=== PATIENT | female | born 1945 | race Caucasian/White ===

== ENCOUNTER 2020-11-06 18:02 | Emergency (ER) | payer MEDICARE, SELFPAY ==
[2020-11-06] VITALS (24 sets, daily range): BP systolic 175–229; BP diastolic 57–113; PULSE 60–97; RESP 12–21; TEMP 37.3; O2SAT 94–98
[2020-11-06 18:37] LABS: Glucose Point of Care 345 (65-105)
--- NOTE | 2020-11-06 18:51 | ECG_ITS ---
Measurements Intervals [place] Rate: 83 P: 67 NM: 179 QRS: 7 QRSD: 100 T: 10 QT: 365 QTc: 429 Interpretive Statements SINUS RHYTHM FREQUENT ATRIAL PREMATURE COMPLEXES VOLTAGE CRITERIA FOR LVH BASELINE ARTIFACT- I, III, AVL, V4-V6 ABNORMAL ECG Electronically Signed On 11-07-2020 8:26:23 [employer]ANT by Nicola Nur D.O.
--- NOTE | 2020-11-06 18:51 | ED.GENADULT ---
HPI - General Adult General Chief complaint: Recheck/Abnormal Lab/Rx Stated complaint: sugar levels are high Time Seen by Provider: 11/06/20 18:40 Source: patient Mode of arrival: ambulatory Limitations: no limitations History of Present Illness HPI narrative: 74-year-old woman with a history of type 2 diabetes and hypertension brought to the emergency department by her granddaughter for high blood sugars. granddaughter says that it has been over 350 since this morning. Up until a few months ago the patient was taking metformin and glipizide. Patient complained that they were causing her side effects and so her primary care doctor changed her to evening Lantus 5 days ago. Patient has not been taking her evening medication because she is not comfortable taking it nor she comfortable checking her blood sugars. She denies cough or cold symptoms, fever, vomiting, diarrhea, dysuria, abdominal pain or other recent illnesses. Patient states that she takes clonidine 3 times a day but today she only took 1 dose. Onset (ago): day(s) Associated symptoms: denies other symptoms Related Data Allergies Allergy/AdvReac Type Severity Reaction Status Date / Time propoxyphene [From Darvon] Allergy Unknown Verified 11/06/20 18:40 glipizide AdvReac Dizziness Verified 11/06/20 18:40 metformin AdvReac Other Verified 11/06/20 18:40 Review of Systems Constitutional: Constitutional: Denies chills and Denies fever(s) Eyes: Eyes: Denies change in vision and Denies photophobia ENT: Denies dysphagia, Denies nasal congestion and Denies sore throat Cardiovascular: Cardiovascular: Denies chest pain and Denies radiating jaw, neck or arm pain Respiratory: Respiratory: Denies cough, Denies dyspnea and Denies wheezing Gastrointestinal: Gastrointestinal: Denies abdominal pain, Denies diarrhea, Denies nausea and Denies vomiting Genitourinary: Genitourinary: Denies nocturia and Denies dysuria Musculoskeletal: Musculoskeletal: Denies back pain, Denies arthralgias and Denies joint swelling Integumentary/Breasts: Skin/Breast: Denies pruritus, Denies erythema and Denies rash Neurologic: Denies vertigo, Denies dizziness and Denies syncope Hematologic/Lymphatic: Hematologic/Lymphatic: Denies easy bleeding and Denies easy bruising Allergic/Immunologic: Allergic/Immunologic: Denies lip swelling and Denies tongue swelling PMFSH Past Medical History Medical History Hypertension Hypothyroidism Type 2 diabetes mellitus Surgical History Surgical History H/O: hysterectomy History of bladder suspension procedure History of cataract surgery Hx of appendectomy Previous back surgery x2 S/P oophorectomy Social History Social History Smoking status: Never smoker Alcohol intake: never Substance use: never Living arrangements: alone Exam Const: General: no acute distress and alert Nutritional Appearance: obese Orientation/consciousness: patient oriented x3 Limitations: no limitations HENMT: Ears: external ears normal, TM's normal bilaterally and EAC's normal General nose exam: Normal nares present Face and sinus: normal facial exam Mouth: Yes moist mucous membranes Throat: posterior oropharynx normal Eyes: Conjunctivae: conjunctivae normal Pupils: Equal, round and reactive pupils present EOM: EOMs intact bilaterally Resp: Effort & Inspection: normal respiratory effort and not labored Auscultation: clear to auscultation bilaterally, no rales, no rhonchi and no wheezes Cardio: Rate: regular rate Rhythm: regular rhythm Heart sounds: no murmurs GI: GI Palp: Yes Soft to palpation, No Tenderness to palpation present (GI), No Guarding due to palpation present (GI) and No Rigid due to palpation Auscultation: normal bowel sounds Skin: General skin exam: normal color, no jaundice
[2020-11-06] MEDS: cloNIDine HCL 0.1 MG TABLET PO (19:12)
[2020-11-06 19:56] LABS: Basophils Absolute Auto 0.06 K/mm3 (0.00-0.10); Basophils Percent Auto 0.7 % (0.0-1.0); Eosinophils Absolute Auto 0.14 K/mm3 (0.02-0.50); Eosinophils Percent Auto 1.6 % (1.0-6.0); Hematocrit 42.2 % (35.0-42.0); Hemoglobin 14.3 g/dL (11.7-13.8); Immature Granulocyte Absolute 0.02 K/mm3 (0.00-0.00); Immature Granulocyte Percent A 0.2 % (0.0-0.0); Lymphocytes Absolute Auto 2.59 K/mm3 (1.10-4.50); Mean Corpuscular HGB Conc 33.9 g/dL (32.0-36.0); Mean Corpuscular Volume 85.6 fL (78.0-102.0); Mean Platelet Volume 10.6 fl (9.2-11.8); Monocytes Absolute Auto 0.87 K/mm3 (0.10-0.90); Monocytes Percent Auto 10.1 % (2.0-11.0); Neutrophils Absolute Auto 4.9 K/mm3 (1.7-7.2); Neutrophils Percent Auto 57.4 % (50.0-70.0); Platelet Count Result 325 K/mm3 (150-420); Red Blood Count 4.93 M/mm3 (4.20-5.40); Red Cell Distribution Width 11.7 % (11.6-14.4); White Blood Count 8.6 K/mm3 (4.8-10.8)
[2020-11-06 20:15] LABS: Alanine Aminotransferase 22 U/L (14-59); Albumin Level 3.7 g/dL (3.4-5.0); Alkaline Phosphatase 86 U/L (46-116); Anion Gap 10 mmol/L (8-16); Aspartate Amino Transferase 12 U/L (15-37); Bilirubin,Total 0.3 mg/dL (0.00-1.00); Blood Urea Nitrogen 17 mg/dL (7-18); Calcium 9.7 mg/dL (8.5-10.1); Carbon Dioxide 26 mmol/L (21-32); Chloride 96 mmol/L (98-108); Estimated CRCL calculation 41 ml/min; Estimated Glomerular Filt Rate 55; Glucose 373 mg/dL (70-99); Osmolality Calculated 290 mOsm/kg (285-295); Potassium 3.4 mmol/L (3.5-5.1); Sodium 132 mmol/L (136-145); Total Protein 8.3 g/dL (6.4-8.2)
[2020-11-06 20:37] LABS: Add Urine Microscopic? YES; Appearance Urine Clear (Clear); Bilirubin Urine Negative (Negative); Blood Urine 1+ (Negative); Color Urine Yellow (Yellow); Glucose Urine UA 3+ (Negative); Ketones Urine Trace (Negative); Leukocyte Esterase Ur Negative (Negative); Nitrate Urine Negative (Negative); Protein Urine Trace (Negative); Specific Grav Ur 1.015 (1.010-1.020); Urobilinogen Urine 0.2 mg/dL (0.2-1.0)
[2020-11-06 20:41] LABS: RBC Urine 21-50 /hpf (0-2)
[2020-11-06 20:42] LABS: Squamous Epithelial Cell Urine Occasional /hpf (Few)
[2020-11-06 21:00] LABS: Glucose Point of Care 312 (65-105)
[2020-11-06] MEDS: INSULIN GLARGINE (*BKC) 100 UNITS/ML 7 UNITS SUB-Q (21:21)
== END 2020-11-06 21:31 | disposition home or self-care (01) ==
PROVIDERS: Emergency Provider Emergency Medicine; PCP Family Medicine
DX: E11.649 Type 2 diabetes mellitus with hypoglycemia without coma (principal); I10 Essential (primary) hypertension; E03.9 Hypothyroidism, unspecified
CPT/HCPCS: 36415; 80053; 81001; 85025; 87086; 93005; 99283; A9270; J1815

== ENCOUNTER 2023-05-13 14:34 | Emergency (ER) | payer MEDICARE, OTHER, SELFPAY ==
[2023-05-13] VITALS (26 sets, daily range): BP systolic 123–197; BP diastolic 88–178; PULSE 99–152; RESP 12–21; TEMP 36.6–37.4; O2SAT 97–100
--- NOTE | ~2023-05-13 | XR_ITS ---
EXAMINATION: XR chest 1V portable Exam Date/Time: 05/13/2023 15:00 CDT HISTORY: AFib with RVR Comparison: None. RESULT: Lines, tubes, and devices: None. Lungs and pleura: Senescent change. Prominent pericardial fat pad. No focal consolidation, effusion, or pneumothorax. Cardiomediastinal silhouette: Normal heart size. Coronary artery calcification versus stenting. Aort ic arch calcification Other: No acute osseous or upper abdominal finding. Degenerative changes in the shoulders and spine. IMPRESSION: No acute cardiopulmonary process. Reviewed, dictated and finalized at location K.
--- NOTE | ~2023-05-13 | CT_ITS ---
EXAMINATION: CT brain wo con DATE: 05/13/2023 15:08 INDICATION: Slurred speech, onset 1:40 PM, with interval improvement. TECHNIQUE: Computed tomography (CT) of the head was performed without intravenous contrast. The mA wa s adjusted according to patient size. Iterative reconstruction technique was employed. The dose-lengt h product was 605.33 mGy-cm. COMPARISON: None. FINDINGS: No acute intracranial hemorrhage or extra-axial fluid collection. No hydrocephalus, mass, or herniation. Focal hypodensity and loss of mancilla-white differentiation in the right temporal lobe along the sylvian fissure. Large area of hypoattenuation and mancilla-white interface loss in the right medial occipital l obe. No vessel hyperdensities. Unremarkable dural venous sinus attenuation. No acute osseous abnormality. The aerated spaces are clear. Mild atrophy and chronic white matter change. Atherosclerotic intracranial calcification. Bilateral l ens replacements. IMPRESSION: Early hyperacute/acute infarcts involving the right temporal and medial occipital lobe. No intracrani al hemorrhage. Results reported telephonically to Dr. Cueva by Dr. Solorio at 3: 15 PM on 05/13/2023. Reviewed, dictated and finalized at location K. IMPRESSION: Early hyperacute/acute infarcts involving the right temporal and medial occipit al lobe. No intracranial hemorrhage. Results reported telephonically to Dr. Cueva by Dr. Solorio at 3: 15 PM on 05/13.
--- NOTE | 2023-05-13 14:48 | ED.GENADULT ---
HPI - General Adult General Chief complaint: Altered Mental Status Stated complaint: Possible stroke Time Seen by Provider: 05/13/23 14:48 Source: patient Mode of arrival: ambulatory Limitations: no limitations History of Present Illness HPI narrative: 77-year-old white female just finished her shower said on toilet all of sudden got weak and somewhat confused and started to have some slurred speech. She was brought by EMS her speech was clear. Denies any chest pain or shortness of breath difficulty breathing weakness numbness or problems with her speech currently. past medical history /Past surgical history:patient was discharged from [facility] in [place] last week after STEMI she had some stents placed . She had a bruise to her right forearm where they tried the place a catheter there. 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 she also has a history of diabetes hypertension hypothyroidism. Denies any history of cancer anemia. Denies any problems eating or drinking or voiding. Says she has been a little constipated she took some milk of magnesia this morning. Denies any rash or itching bleeding or bruising except for her right wrist she has a small bruise on her right wrist. Denies any swelling lumps or bumps cough shortness of breath sore throat or fever. She said she has had runny nose. EMS stated she was alert and oriented with a got their x4 she had no signs of stroke blood sugar was 169 blood pressure was 115/90 repeat 144/90 she was in AFib atrial fib at a rate of 130. Had occasional PVC social history she lives along Related Data Home Medications Medication Instructions Recorded Confirmed amlodipine 2.5 mg tablet 2.5 mg PO DAILY 05/13/23 05/13/23 aspirin 81 mg chewable tablet 81 mg PO DAILY 05/13/23 05/13/23 clonidine HCl 0.1 mg tablet 0.1 mg PO TID 05/13/23 05/13/23 docusate sodium 100 mg capsule 100 mg PO DAILY 05/13/23 05/13/23 insulin aspart U-100 100 unit/mL 14 unit subcut BID 05/13/23 05/13/23 subcutaneous solution (Novolog U-100 Insulin aspart) insulin glargine 100 unit/mL (3 10 unit subcut QPM 05/13/23 05/13/23 mL) subcutaneous pen (Lantus Solostar U-100 Insulin) levothyroxine 100 mcg tablet 100 mcg PO DAILY 05/13/23 05/13/23 (Synthroid) losartan 100 mg tablet 100 mg PO DAILY 05/13/23 05/13/23 metoprolol tartrate 50 mg tablet 50 mg PO BID 05/13/23 05/13/23 multivitamin-ferrous 1 tablet PO DAILY 05/13/23 05/13/23 fumarate-folic acid 18 mg-400 mcg tablet (Centrum Women) mvn-vit C 250 mg-B.coagulans 1 tablet PO DAILY 05/13/23 05/13/23 166.67 million cell-herb chewable tablet (Airborne Plus Probiotic) rosuvastatin 10 mg tablet (Crestor) 10 mg PO DAILY 05/13/23 05/13/23 sitagliptin phosphate 100 mg 100 mg PO DAILY 05/13/23 05/13/23 tablet (Januvia) ticagrelor 90 mg tablet 90 mg PO Q12H 05/13/23 05/13/23 Allergies Allergy/AdvReac Type Severity Reaction Status Date / Time atorvastatin [From Lipitor] Allergy Hives Verified 05/13/23 14:59 [id number]-[id number] Reductase Allergy Hives Verified 05/13/23 14:59 Inhibitor Streptomyces Albus Allergy Hives Uncoded 05/13/23 14:59 Review of Systems Review of Systems: All systems reviewed & are unremarkable except as noted in HPI and below Exam Narrative: ? White female no apparent distress.? Head normocephalic, atraumatic.? Eyes conjunctiva pink sclera nonicteric.? Extraocular movements are intact.? Ears externally normal.? Oropharynx is clear with moist mucous membranes without exudates.? Neck is supple nontender no lymphadenopathy.? Back is nontender.? Lungs are clear.? Heart is Irregularly irregular with the tachycardic heart rate without murmurs gallops or rubs.? Chest wall is nontender.? Abdomen is soft and nontender no hepatosplenomegaly or masses no CVA tenderness no abdominal bruits.? Extremities no cyanosis clubbing or edema.? S
--- NOTE | 2023-05-13 14:49 | ECG_ITS ---
Measurements Intervals [place] Rate: 128 P: NC: 0 QRS: 6 QRSD: 118 T: 226 QT: 322 QTc: 470 Interpretive Statements ATRIAL FIBRILLATION WITH RAPID VENTRICULAR RESPONSE INCOMPLETE LEFT BUNDLE BRANCH BLOCK LEFT VENTRICULAR HYPERTROPHY WITH ST-T CHANGE CONSIDER INFERIOR INFARCT, AGE INDETERMINATE ST-T WAVE ABNORMALITY IN LATERAL LEADS- CONSIDER ISCHEMIA ABNORMAL ECG NO PREVIOUS ECG AVAILABLE FOR COMPARISON Electronically Signed On 05-14-2023 8:41:18 CDT by Nicola Nur D.O.
[2023-05-13] MEDS: dilTIAZem HCl INJ 25 MG/5 ML VIAL 10 MG IV PUSH (15:18)
[2023-05-13 15:46] LABS: Mean Corpuscular HGB Conc 35.1 g/dL (32.0-36.0); Mean Corpuscular Hemoglobin 30.5 pg (27.0-31.0); Mean Corpuscular Volume 86.9 fL (78.0-102.0); Mean Platelet Volume 9.6 fl (9.2-11.8); Platelet Count Result 363 K/mm3 (150-420); Red Blood Count 4.26 M/mm3 (4.20-5.40); Red Cell Distribution Width 11.9 % (11.6-14.4)
[2023-05-13 15:58] LABS: INR 1.1; Partial Thromboplastin Time 25.7 SEC (23.90-30.70); Prothrombin Time 11.7 Seconds (9.50-12.10)
[2023-05-13 16:09] LABS: Alanine Aminotransferase 24 U/L (14-59); Albumin Level 3.6 g/dL (3.4-5.0); Alkaline Phosphatase 57 U/L (46-116); Anion Gap 14 mmol/L (8-16); Aspartate Amino Transferase 32 U/L (15-37); Bilirubin,Total 0.8 mg/dL (0.00-1.00); Blood Urea Nitrogen 16 mg/dL (7-18); Calcium 9.4 mg/dL (8.5-10.1); Carbon Dioxide 24 mmol/L (21-32); Chloride 96 mmol/L (98-108); Estimated CRCL calculation 38 ml/min; Estimated Glomerular Filt Rate 52; Glucose 186 mg/dL (70-99); NT Pro B Type Natriuretic Pept 4582 pg/mL (0-450); Osmolality Calculated 284 mOsm/kg (285-295); Potassium 3.6 mmol/L (3.5-5.1); Sodium 134 mmol/L (136-145); Thyroid Stimulating Hormone 0.78 uIU/mL (0.36-3.74); Total Protein 8.1 g/dL (6.4-8.2)
[2023-05-13] MEDS: dilTIAZem 100 MG/100 ML 100 MG/100 ML BAG IV CONT (16:30)
== END 2023-05-13 17:35 | disposition short-term general hospital (02) ==
LOC: CHSED 16:04
PROVIDERS: Emergency Provider Emergency Medicine; PCP Physician Assistant
DX: I63.89 Other cerebral infarction (principal); I48.20 Chronic atrial fibrillation, unspecified; R53.1 Weakness; R41.0 Disorientation, unspecified; E03.9 Hypothyroidism, unspecified; I25.2 Old myocardial infarction; E11.9 Type 2 diabetes mellitus without complications; I10 Essential (primary) hypertension; Z79.899 Other long term (current) drug therapy; Z79.4 Long term (current) use of insulin; Z79.82 Long term (current) use of aspirin
CPT/HCPCS: 36415; 70450; 71045; 80053; 83735; 83880; 84443; 84484; 85027; 85610; 85730; 93005; 96365; 96376; 99285

== ENCOUNTER 2023-05-22 15:07 | Inpatient (IN) | payer MEDICARE, OTHER, SELFPAY ==
[2023-05-22] VITALS (30 sets, daily range): BP systolic 116–181; BP diastolic 62–151; PULSE 77–109; RESP 13–20; TEMP 36.5–36.8; O2SAT 96–100; BMI 27.5
--- NOTE | ~2023-05-22 | XR_ITS ---
XR chest 1V portable DATE: 05/22/2023 15:49 INDICATION: Slurred speech, left-sided weakness TECHNIQUE: Portable supine AP view on 05/22/2023 at 1545 hours COMPARISON: None FINDINGS: Cardiomegaly. Aortic arch calcification. There is increased density overlying the left side of the cardiac silhouette which which may be due t o any combination of mitral annulus calcification, left lower lung infiltrate and/atelectasis, less l ikely hiatal hernia. PA and lateral chest radiographs or CT thorax would be helpful for more definiti ve evaluation. The lung watson otherwise appear clear. No pleural effusion or pneumothorax is noted. Degenerative spurring of the thoracic spine. IMPRESSION: Cardiomegaly, aortic atherosclerosis Increased retrocardiac density on the left which may be due to any combination of mitral annulus calc ification, infiltrate or atelectasis, hiatal hernia PA and lateral chest radiographs or CT thorax with the helpful for more definitive evaluation Reviewed, dictated and finalized at location L. IMPRESSION: Cardiomegaly, aortic atherosclerosis Increased retrocardiac density on the left which may be due to any combination of mitral annulus calcification, infiltrate or atelectasis, hiatal hernia PA and lateral chest radiographs or CT thorax with the helpful for more definit armando evaluation
--- NOTE | ~2023-05-22 | CT_ITS ---
EXAMINATION: CTA brain carotid DATE: 05/22/2023 15:37 INDICATION: stroke symptoms TECHNIQUE: Computed tomographic angiography (CTA) of the head was performed without and with 100 mL O mnipaque-350 intravenous contrast. CTA of the neck was performed with intravenous contrast. Automated exposure control and iterative reconstruction technique were employed. The dose-length product was 1 580.55 mGy-cm. Maximum intensity projection and volume rendered 3D-reconstructions were created by th sourav technologist on a separate workstation. COMPARISON: None. FINDINGS: CT BRAIN: Focal areas of hypodensity and loss of the mancilla-white interface within the right temporal and right m edial occipital lobes No acute intracranial hemorrhage, mass, or hydrocephalus. CTA HEAD: No large vessel occlusion, aneurysm, high flow vascular malformation, nidus or extravasation. 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 Short segment mild narrowing at the right M1/M2 junction with mild poststenotic dilation. Scattered mild and moderate calcified plaques in the bilate ral carotid and vertebral systems without significant stenosis. Focal hypoenhancement in the right te mporal and occipital lobes corresponding to the abnormalities in the noncontrast scan. Patent cerebra l veins. CTA NECK: Aortic arch and proximal great vessels: Mild-moderate atherosclerotic calcifications. Noncalcified pl aque in the mid and posterior arch. Right common carotid, carotid bifurcation, and internal carotid artery: Calcified and noncalcified pl aque at the bifurcation.There is 47% stenosis of the proximal right internal carotid artery relative to normal distal artery lumen diameter (NASCET criteria). Scattered focal calcified plaques in the re maining right carotid system, without significant stenosis. Left common carotid, carotid bifurcation, and internal carotid artery: Calcified and noncalcified daysi que at the bifurcation.There is 59% stenosis of the proximal left internal carotid artery relative to normal distal artery lumen diameter (NASCET criteria). Scattered focal calcified plaques in the bambi ining left carotid system, without significant stenosis. Vertebral arteries: No significant plaque or stenosis. Right vertebral artery is dominant. Moderate b ilateral vertebral artery origin calcific plaque causing mild stenosis. Mild additional scattered biju ateral vertebral artery focal calcified plaques without significant stenosis. Other findings: None. IMPRESSION: Focal areas of acute infarct involving the right temporal and right occipital lobes, possibly on an e mbolic basis given the distribution. No large vessel occlusion. 47% stenosis of the proximal right internal carotid artery. 59% stenosis of the proximal left interna l carotid artery. Results of the noncontrast head CT portion of this examination (relating to focal areas of right temp oral and right occipital acute and possibly embolic infarct), which was performed as part of the [facility] stroke protocol, reported telephonically to Dr. Holman by Dr. Solorio at 3:33 PM on 05/22/2023. Reviewed, dictated and finalized at location K. IMPRESSION: Focal areas of acute infarct involving the right temporal and right occipital l obes, possibly on an embolic basis given the distribution. No large vessel occlusion. 47% stenosis of the proximal right internal carotid artery. 59% stenosis of the proximal left internal carotid artery. Results of the noncontrast head CT portion of this examination (relating to foc al areas of right temporal and right occipital acute and possibly embolic infar ct), which was performed as part of the [facility] stroke protocol, reported telephon ically to Dr. Holman by Dr. Solorio at 3:33 PM on 05/22/2023.
--- NOTE | ~2023-05-22 | MR_ITS ---
EXAMINATION: MR brain/brain stem wo con DATE: 05/25/2023 14:47 INDICATION: Vision changes. Mild confusion. TECHNIQUE: Magnetic resonance imaging (MRI) of the brain and brainstem was performed without intraven ous contrast. COMPARISON: Head CT 05/22/2023, 05/13/23 FINDINGS: There is an acute infarct in the right thalamus. There is an acute infarct involving the ri ght temporal occipital region. There is no intracranial hemorrhage or abnormal mass lesion. There is an infarct in the right temporal lobe, likely subacute or chronic. There is a small infarct in right cerebellum, likely subacute or chronic. There are scattered areas of nonspecific increased T2-weighte d signal intensity in the cerebral white matter, which is within normal limits for the patient's age. The ventricles are normal in size. The paranasal sinuses are clear. There are likely changes of ocul ar lens replacement surgeries. The mastoid air cells are normal. IMPRESSION: 1. Acute infarcts involving the right thalamus and right temporal occipital region the expected distr ibution of right posterior cerebral artery. 2. Infarcts in the right temporal lobe and right cerebellum, likely subacute or chronic. Reviewed, dictated and finalized at location A. IMPRESSION: 1. Acute infarcts involving the right thalamus and right temporal occipital reg ion the expected distribution of right posterior cerebral artery. 2. Infarcts in the right temporal lobe and right cerebellum, likely subacute or chronic.
--- NOTE | 2023-05-22 15:09 | ECG_ITS ---
Measurements Intervals [place] Rate: 99 P: VT: 0 QRS: 23 QRSD: 117 T: 246 QT: 411 QTc: 527 Interpretive Statements ATRIAL FIBRILLATION INTRAVENTRICULAR CONDUCTION DELAY CONSIDER INFERIOR INFARCT, AGE INDETERMINATE ST-T WAVE ABNORMALITY IN ANTEROLATERAL LEADS- CONSIDER ISCHEMIA ABNORMAL ECG COMPARED TO ECG 11/06/2020 19:10:25 ATRIAL FIBRILLATION NOW PRESENT INTRAVENTRICULAR CONDUCTION DELAY NOW PRESENT ST-T WAVE ABNORMALITY NOW PRESENT Electronically Signed On 05-22-2023 16:20:41 CDT by Nicola Nur D.O.
--- NOTE | 2023-05-22 15:21 | ED.NEUROSD ---
HPI - Neuro Symptoms/Deficit General Chief Complaint: Suspected CVA Stated Complaint: stroke symptoms Time Seen by Provider: 05/22/23 15:12 History of Present Illness HPI Narrative: Patient is a 77-year-old female presenting as a code stroke. Last known well was reportedly 2 PM. EMS was called and found her to have slurred speech and left arm drift. By the time she arrived to the ER, all the symptoms had resolved. Currently she denies complaints. Patient emergently taken to CT scan. Related Data Home Medications Medication Instructions Recorded Confirmed aspirin 81 mg chewable tablet 81 mg PO DAILY 05/13/23 05/13/23 clonidine HCl 0.1 mg tablet 0.1 mg PO TID 05/13/23 05/13/23 docusate sodium 100 mg capsule 100 mg PO DAILY 05/13/23 05/13/23 insulin glargine 100 unit/mL (3 10 unit subcut QPM 05/13/23 05/13/23 mL) subcutaneous pen (Lantus Solostar U-100 Insulin) losartan 100 mg tablet 100 mg PO DAILY 05/13/23 05/13/23 multivitamin-ferrous 1 tablet PO DAILY 05/13/23 05/13/23 fumarate-folic acid 18 mg-400 mcg tablet (Centrum Women) mvn-vit C 250 mg-B.coagulans 1 tablet PO DAILY 05/13/23 05/13/23 166.67 million cell-herb chewable tablet (Airborne Plus Probiotic) sitagliptin phosphate 100 mg 100 mg PO DAILY 05/13/23 05/13/23 tablet (Januvia) insulin aspart U-100 100 unit/mL 14 unit subcut BID 05/22/23 05/22/23 (3 mL) subcutaneous pen levothyroxine 100 mcg tablet 100 mcg PO DAILY 05/22/23 05/22/23 (Synthroid) metoprolol tartrate 100 mg tablet 100 mg PO BID 05/22/23 05/22/23 pantoprazole 40 mg tablet,delayed 40 mg PO DAILY 05/22/23 05/22/23 release rivaroxaban 15 mg tablet (Xarelto) 15 mg PO DAILY 05/22/23 05/22/23 rosuvastatin 10 mg tablet (Crestor) 20 mg DAILY 05/22/23 05/22/23 Allergies Allergy/AdvReac Type Severity Reaction Status Date / Time atorvastatin [From Lipitor] Allergy Hives Verified 05/23/23 09:56 propoxyphene [From Darvon] Allergy Unknown Verified 05/23/23 09:56 Pvdkeji-AAF-YkT Reductase Allergy Hives Verified 05/23/23 09:56 Inhibitor glipizide AdvReac Dizziness Verified 05/23/23 09:56 metformin AdvReac Other Verified 05/23/23 09:56 Streptomyces Albus Allergy Hives Uncoded 05/23/23 09:56 Review of Systems Review of Systems: ROS unobtainable: Yes unobtainable due to medical condition PMFSH Past Medical History Medical History Hypertension Hypothyroidism Type 2 diabetes mellitus Surgical History Surgical History H/O: hysterectomy History of bladder suspension procedure History of cataract surgery Hx of appendectomy Previous back surgery x2 S/P oophorectomy Family History Family History Mother Angina concurrent with and due to arteriosclerosis of coronary artery Heart disease CAD (coronary artery disease) Sibling Heart disease CAD (coronary artery disease) Social History Social History Smoking packs per day: 0.5 Smoking cigarettes per day: 10.0 Years smoked: 15 Smoking pack-years: 7.50 Smoking status: Former smoker Alcohol intake: former Substance use: never Lack of Transportation: No Lack of Food: Never True Current Housing: I Have Housing Concerned About Future Housing: No Difficulty Paying Gas/Electric Bills: No Difficulty Paying for Meds: No Currently Unemployed: No Education: Grade School Difficulty w/ Childcare or Family Care: No Living arrangements: alone Spiritual care concerns: No Exam Narrative: GENERAL: Well-appearing, well-nourished, and in no acute distress. Pleasant and cooperative HEAD: Normocephalic, atraumatic. EYES: PERRLA and EOMI. ENT: Nares clear, no rhinorrhea or epistaxis. Mucous membranes moist. NECK: Supple. CHEST: Clear to auscultation. No respiratory distress. HEART: Reg
[2023-05-22 15:29] LABS: Estimated Glomerular Filt Rate 48
[2023-05-22 15:47] LABS: Basophils Absolute Auto 0.1 K/mm3 (0.0-0.1); Basophils Percent Auto 0.9 % (0.2-1.2); Eosinophils Absolute Auto 0.1 K/mm3 (0-0.3); Eosinophils Percent Auto 0.8 % (0-4.4); Hematocrit 34.8 % (37.0-47.0); Immature Granulocyte Absolute 0.06 K/mm3 (0.00-0.031); Immature Granulocyte Percent A 0.7 % (0-0.5); Lymphocytes Absolute Auto 1.51 K/mm3 (0.9-3.2); Lymphocytes Percent Auto 16.8 % (18.3-44.2); Mean Corpuscular HGB Conc 31.6 g/dl (32-36); Mean Corpuscular Hemoglobin 29.5 pg (26-34); Mean Corpuscular Volume 93.3 fl (80-100); Mean Platelet Volume 9.6 fl (7.4-10.4); Monocytes Absolute Auto 0.8 K/mm3 (0.1-0.6); Monocytes Percent Auto 9.1 % (2.6-8.5); Neutrophils Absolute Auto 6.5 K/mm3 (1.3-6.7); Neutrophils Percent Auto 71.7 % (45.5-73.1); Platelet Count Result 377 k/mm3 (150-375); Red Blood Count 3.73 M/mm3 (4.2-5.4)
[2023-05-22 15:56] LABS: Alanine Aminotransferase 19 U/L (6-35); Albumin Level 3.2 g/dL (3.5-5.1); Alkaline Phosphatase 46 U/L (38-126); Anion Gap 9 mmol/L (8-16); Aspartate Amino Transferase 27 U/L (14-36); Bilirubin,Total 0.7 mg/dL (0.2-1.3); Blood Urea Nitrogen 19 mg/dL (7-17); Calcium 8.5 mg/dL (8.4-10.2); Carbon Dioxide 22 mmol/L (22-30); Chloride 98 mmol/L (98-107); Estimated CRCL calculation 43 ml/min; Estimated Glomerular Filt Rate 60; Glucose 178 mg/dL (65-110); Potassium 4.1 mmol/L (3.4-5.0); Sodium 129 mmol/L (137-145)
[2023-05-22 16:08] LABS: Troponin I 0.031 ng/mL (0.000-0.034)
[2023-05-22 16:21] LABS: INR 1.4; Prothrombin Time 17.6 Seconds (11.1-14.7)
[2023-05-22 16:22] LABS: Partial Thromboplastin Time 28.1 SECONDS (22.3-36.8)
[2023-05-22] MEDS: levETIRAcetam 1000MG/NACL100ML 1,000 MG/100 ML BAG 400 MG IVPB (16:54)
--- NOTE | 2023-05-22 20:52 | PM.IMHP ---
H&P: HPI History of Present Illness Date/Time: 05/22/23 20:52 Chief Complaint: acute stroke Narrative: Patient is a 77-year-old female presenting as a code stroke.? Last known well was reportedly 2 PM.? EMS was called and found her to have slurred speech and left arm drift.? By the time she arrived to the ER, all the symptoms had resolved.? Currently she denies complaints.? Patient emergently taken to CT scan. Patient is reporting recurrent episodes of stroke during the recent week. In the ED the patient had the following vital signs a pulse rate of 97, respiration 170/99, pulse ox 100% on room air. CT scan of the brain reveals acute infarct in the left temporal and occipital lobes concerning for embolic events.? Patient was just discharged from an outside hospital this morning after being admitted for newly found A-fib with stroke.? Call out to [facility] to discuss recent hospitalization.? EKG shows atrial fibrillation with ventricular rate of 99, prolonged QTc, no acute ischemic changes. Dr. Kapaida from [facility] who reviewed today's imaging and compared it to her prior imaging states that it is unchanged.? It shows the known acute strokes in her temporal and occipital lobes.? He advises loading with Keppra and starting her on oral Keppra.? Dr. Scott was consulted.? He agrees with Keppra load, advises seizure precautions, possible EEG in the morning.? Advises to obtain MRI from [facility] if possible. The patient will be admitted under hospitalist service for overnight observation. Review of Systems Review of Systems: CONSTITUTIONAL: Negative for any fevers, chills, night sweats, tiredness, fatigue, malaise, anorexia or weight loss. CARDIOVASCULAR: Negative for chest pain, palpitations, dizziness, orthopnea or lower extremity edema. RESPIRATORY: Negative for shortness of breath, cough, wheezing, sputum. GASTROINTESTINAL: Negative for nausea, vomiting, diarrhea, abdominal pain, constipation. GENITOURINARY: Negative for frequency, nocturia, dysuria, hematuria. GYNECOLOGIC: Negative for abnormal bleeding. HEMATOLOGIC: Negative for any abnormal bleeding or bruising. MUSCULOSKELETAL: Negative for joint swelling, stiffness or pain. SKIN: Negative for rashes, eruptions, lesions or dryness. NEUROLOGIC: Negative for any focal neurologic complaints. PSYCHIATRIC: Negative for anxiety, panic, depression. PMFSH Past Medical History Medical History (Updated 05/23/23 @ 01:16 by Jelly Burden MD) Hypertension Hypothyroidism Type 2 diabetes mellitus Surgical History Surgical History H/O: hysterectomy History of bladder suspension procedure History of cataract surgery Hx of appendectomy Previous back surgery x2 S/P oophorectomy Family History Family History Mother Angina concurrent with and due to arteriosclerosis of coronary artery Heart disease CAD (coronary artery disease) Sibling Heart disease CAD (coronary artery disease) Social History Social History Smoking packs per day: 0.5 Smoking cigarettes per day: 10.0 Years smoked: 15 Smoking pack-years: 7.50 Smoking status: Former smoker Alcohol intake: former Substance use: never Lack of Transportation: No Lack of Food: Never True Current Housing: I Have Housing Concerned About Future Housing: No Difficulty Paying Gas/Electric Bills: No Difficulty Paying for Meds: No Currently Unemployed: No Education: Grade School Difficulty w/ Childcare or Family Care: No Living arrangements: alone Spiritual care concerns: No Meds Home Medications and Allergies Home Medications Medication Instructions Recorded Confirmed Type Centrum Women 1 tablet PO DAILY 05/22/23 05/22/23 History Januvia 100 mg PO DAILY 05/22/23 05/22/23 History Lantus Solostar U-100 Insulin 10 units subcut HS
--- NOTE | 2023-05-22 21:10 | ADMGEN ---
This patient, Anu Porter, was admitted to IMU Room 207-01. Patient/family oriented to hospital policies and general routines including ID bracelet, bed and alarms, visiting hours, pain management, procedures, bathroom and other care routines, personal items, smoking policy, room service/diet, and visiting hours. Information on how to activate the Rapid Response Team has been discussed. Patient/Family are encouraged to report perceived risks to care and to ask questions if they do not understand what they are told or what they should do.
[2023-05-22] MEDS: INSULIN GLARGINE (*BKC) 100 UNITS/ML 11 UNITS SUB-Q (21:29)
[2023-05-23] VITALS (16 sets, daily range): BP systolic 136–161; BP diastolic 57–98; PULSE 74–146; RESP 16–20; TEMP 36.2–36.8; O2SAT 96–100
--- NOTE | 2023-05-23 | ECHO_ITS ---
Patient Info Name: Stephany Porter Age: 77 years : 1945 Gender: Female Ht: 63 in Wt: 155 lbs BSA: 1.79 m2 HR: 74 bpm BP: 148 / 63 mmHg Heart Rhythm: Atrial Fibrillation Technical Quality: Fair Exam Date: 05/23/2023 11:17 AM Exam Location: [facility] Pulmonary Patient Status: Inpatient Admit Date: 05/22/2023 Staff Ordering Physician: Jelly Burden MD Hurricane Tracker: Hua Borjas RDCS Attending Provider: Steve Glaser MD Exam Type: CA echo doppler color flow Study Info Complete two-dimensional, color flow and Doppler transthoracic echocardiogram is performed. Summary 1. Complete two-dimensional, color flow and Doppler transthoracic echocardiogram is performed. 2. Left ventricular chamber dimension is normal. 3. Left ventricular systolic function is normal, estimated at 65-70%. 4. There is severely increased left ventricular wall thickness. 5. The left ventricular diastolic function is indeterminate. 6. Left atrial chamber dimension is severely enlarged. 7. Right atrial chamber dimension is mildly enlarged. 8. There is mild aortic valve stenosis with a peak velocity of 102 cm/s, mean gradient of 2 mmHg, and aortic valve area of 1.7 cm2. 9. There is moderate aortic valve calcification. 10. There is mild mitral valve regurgitation. 11. The mitral valve annulus is severely calcified. 12. There is mild tricuspid valve regurgitation. Left Ventricle Left ventricular chamber dimension is normal. Left ventricular systolic function is normal, estimated at 65-70%. There is severely increased left ventricular wall thickness. The left ventricular diastolic function is indeterminate. Right Ventricle Right ventricular chamber dimension is normal. Right ventricular systolic function is normal. Left Atria Left atrial chamber dimension is severely enlarged. Right Atria Right atrial chamber dimension is mildly enlarged. Atrial Septum Intact interatrial septum visualized by color flow imaging. Aortic Valve The aortic valve is trileaflet. There is mild aortic valve stenosis with a peak velocity of 102 cm/s, mean gradient of 2 mmHg, and aortic valve area of 1.7 cm2. There is trace aortic valve regurgitation. There is moderate aortic valve calcification. Pulmonic Valve The pulmonic valve is normal. There is no pulmonic valve stenosis. There is trace pulmonic regurgitation. Mitral Valve There is no mitral valve stenosis. There is mild mitral valve regurgitation. The mitral valve annulus is severely calcified. Tricuspid Valve The tricuspid valve leaflets are normal. There is no significant tricuspid valve stenosis. There is mild tricuspid valve regurgitation. No pulmonary hypertension, estimated pulmonary arterial systolic pressure is 22 mmHg. Pericardium/Pleural The pericardium appears normal. There is no pericardial effusion. Inferior Vena Cava Normal inferior vena cava with >50% collapse upon inspiration consistent with normal right atrial pressure, 10 mmHg. Aorta The aortic root size at the sinus of Valsalva is normal. Left Ventricular Outflow Tract Name Value Normal LVOT 2D LVOT Diameter 1.7 cm LVOT Doppler LVOT Peak Gradient 2 mmHg LVOT Mean Gradien
[2023-05-23 01:18] LABS: Hemoglobin A1C 6.5 % (<5.7)
[2023-05-23] MEDS: LEVOTHYROXINE SODIUM 100 MCG TABLET PO (06:32)
[2023-05-23 06:40] LABS: Glucose Point of Care 289 mg/dl (65-105)
--- NOTE | 2023-05-23 08:14 | ECG_ITS ---
Measurements Intervals [facility] Rate: 104 P: UT: 0 QRS: 26 QRSD: 118 T: 246 QT: 361 QTc: 475 Interpretive Statements ATRIAL FIBRILLATION WITH RAPID VENTRICULAR RESPONSE INCOMPLETE LEFT BUNDLE BRANCH BLOCK CONSIDER INFERIOR INFARCT, AGE INDETERMINATE ST-T WAVE ABNORMALITY IN INF/LAT LEADS- CONSIDER ISCHEMIA BASELINE WANDER- V1 ABNORMAL ECG COMPARED TO ECG 05/22/2023 15:39:43 HEART RATE HAS INCREASED Electronically Signed On 05-23-2023 9:14:45 CDT by Nicola Nur D.O.
[2023-05-23] MEDS: amLODIPine BESYLATE 2.5 MG TABLET PO (08:46)
[2023-05-23] MEDS: ROSUVASTATIN 20 MG TABLET BY MOUTH (08:47)
[2023-05-23] MEDS: TICAGRELOR 90 MG TABLET PO ×2 (08:47→18:10)
[2023-05-23] MEDS: METOPROLOL TARTRATE 50 MG TAB 100 MG PO ×2 (08:47→21:41)
[2023-05-23] MEDS: MULTIVITAMINS THERAPEUTIC TAB (*BKC) 1 TABLET PO (08:47)
[2023-05-23] MEDS: RIVAROXABAN 15 MG TABLET PO (08:47)
[2023-05-23] MEDS: ASPIRIN 81 MG CHEWABLE TABLET PO (08:47)
[2023-05-23] MEDS: PANTOPRAZOLE 40 MG TABLET PO (08:47)
[2023-05-23] MEDS: INSULIN ASPART (*BKC) 100 UNITS/ML 14 UNITS SUB-Q ×2 (08:51→18:11)
[2023-05-23 09:21] LABS: Glucose Point of Care 146 mg/dl (65-105)
--- NOTE | 2023-05-23 11:58 | WPDNEURCNPN ---
Assessment and Plan Assessment and plan (1) Atrial fibrillation with rapid ventricular response: Code(s): I48.91 - Unspecified atrial fibrillation Status: Acute (2) Hypertension: Qualifiers: Hypertension type: essential hypertension Qualified Code(s): I10 - Essential (primary) hypertension Code(s): I10 - Essential (primary) hypertension Status: Acute (3) Type 2 diabetes mellitus: Qualifiers: Diabetes mellitus complication status: with other specified complication Diabetes mellitus oysterman insulin use: without oysterman use Qualified Code(s): E11.69 - Type 2 diabetes mellitus with other specified complication Code(s): E11.9 - Type 2 diabetes mellitus without complications Status: Acute (4) Acute CVA (cerebrovascular accident): Code(s): I63.9 - Cerebral infarction, unspecified Status: Acute Plan most likely embolic stroke but she is already anticoagulated will obtain the EEG to rule out the possibility of focal seizure in addition she needs to be followed by the vascular physician as well because of the internal carotid artery disease I will discuss with her further tomorrow Consult date: 05/23/23 HPI: Stephany Porter is a 77 year old female admitted to the hospital through the emergency room for the complaints of slurred speech and drift of the left upper extremity against gravity she was brought to the ER by the Code Stroke by the time she came to the ER symptoms were completely resolved. She does have ongoing history of type 2 diabetes mellitus, hypertension, and hypothyroidism. In the past patient has had back surgery, she has never a smoker never alcohol intake. Initial evaluation in the Emergency Room documented blood pressure of 170/89 repeat 146/96 initial scan in the emergency room documented the left temporal occipital stroke, and patient has recently been discharged from other institution with the diagnosis of acute atrial fibrillation also EKG here was consistent with an atrial fibrillation, repeated studies compared to the previous studies at the other institution were unchanged, she was started on Keppra with a initial loading dose in the emergency room here where admitted here for the preop EEG and further observation such. CBC was not significant basic metabolic panel with sodium 129 blood sugar 178. All other lab studies are normal except the low albumin of 3.2. CTA here documented acute infarct involving the right temporal and right occipital lobe with no vessel occlusion and 47% stenosis of the proximal right internal carotid artery 59% stenosis of proximal left internal carotid artery. Patient has been receiving losartan 100 mg daily metoprolol 100 mg twice a day and 50 mg twice a day rivaroxaban 15 mg daily rosuvastatin 10 mg daily and 20 mg daily in addition to Brilinta 90 mg twice a day though at present she is on insulin, aspirin, rivaroxaban 15 mg daily and rosuvastatin 20 mg daily. At present she has gone down for MRI and also will have the EEG then will discuss with the family [facility] Past Medical History Medical History Hypertension Hypothyroidism Type 2 diabetes mellitus Surgical History Surgical History H/O: hysterectomy History of bladder suspension procedure History of cataract surgery Hx of appendectomy Previous back surgery x2 S/P oophorectomy Family History Family History Mother Angina concurrent with and due to arteriosclerosis of coronary artery Heart disease CAD (coronary artery disease) Sibling Heart disease CAD (coronary artery disease) Social History Social History Smoking packs per day: 0.5 Smoking cigarettes per day: 10.0 Years smoked: 15 Smoking pack-years: 7.50 Smoking status: Former smok
[2023-05-23 12:01] LABS: Glucose Point of Care 206 mg/dl (65-105)
[2023-05-23] MEDS: INSULIN ASPART (*BKC) 100 UNITS/ML SUB-Q (12:59)
--- NOTE | 2023-05-23 13:57 | PM.CNCAR ---
Assessment and Plan Assessment and plan (1) Atrial fibrillation with rapid ventricular response: Code(s): I48.91 - Unspecified atrial fibrillation Status: Acute Assessment and Plan: Patient is in atrial fibrillation with RVR. On Metoprolol 100mg BID. Echocardiogram shows LVEF is preserved, therefore, for additional rate control will start oral Diltiazem. Continue Xarelto. (2) Acute CVA (cerebrovascular accident): Code(s): I63.9 - Cerebral infarction, unspecified Status: Acute Assessment and Plan: Neurology is consulted. (3) Coronary artery disease: Code(s): I25.10 - Atherosclerotic heart disease of [place] coronary artery without angina pectoris Status: Acute Assessment and Plan: Patient tells me that she has a stent in her heart but cannot provide any further details, cannot say what year that was done. According to her medication list, patient is on triple therapy with ASA, Brilinta and Xarelto. Please obtain records from outside hospital / her primary Head Of Design as we will need to clarify the details on her coronary artery disease. If patient has had recent PCI, and needs triple therapy, then Plavix is preferred instead of Brilinta due to the risks of bleeding with Brilinta. If her PCI was not recent, then there would not be an indication for triple therapy. History of Present Illness History of Present Illness Consult date/time: 05/23/23 13:57 Requesting physician: Jelly Burden MD Consult reason: atrial fibrillation and Other (Stroke) Reason For Visit: Possible Seizure Activity/Recent Stroke Narrative: We are consulted for atrial fibrillation with RVR. This is a 77 year old female who initially presented to [place] [facility] 05/22 as a code stroke. Patient had slurred speech and left arm drift with resolution of symptoms. Initially there was concern for acute infarcts in the left temporal and occipital lobes concerning for embolic events on CT scan. Patient was just discharged from an outside hospital earlier yesterday morning after being admitted for new diagnosis of atrial fibrillation and acute stroke. ER called the hospital to discuss her recent hospitalization, and it was noted that her imaging compared to the other hospital's imaging is similar and is unchanged. EKG on arrival shows rate controlled atrial fibrillation with incomplete LBBB, however, patient went into RVR overnight/this morning. Patient is reportedly on ASA, Brilinta, and Xarelto. When asked about her medications, patient cannot give me further details. States she has a stent in her heart but cannot say what year that was done. Patient overall is poor historian in providing any details about her medical condition. She denies chest pain, shortness of breath, otherwise states she feels fine. Review of Systems Review of Systems: All systems reviewed & are unremarkable except as noted in HPI and below (HPI) [facility] Past Medical History Medical History Hypertension Hypothyroidism Type 2 diabetes mellitus Surgical History Surgical History H/O: hysterectomy History of bladder suspension procedure History of cataract surgery Hx of appendectomy Previous back surgery x2 S/P oophorectomy Family History Family History Mother Angina concurrent with and due to arteriosclerosis of coronary artery Heart disease CAD (coronary artery disease) Sibling Heart disease CAD (coronary artery disease) Social History Social History Smoking packs per day: 0.5 Smoking cigarettes per day: 10.0 Years smoked: 15 Smoking pack-years: 7.50 Smoking status: Former smoker Alcohol intake: former Substance use: never Lack of Transportation: No Lack of Food: Never True Current Housing: I Have Housing Concerned
[2023-05-23] MEDS: dilTIAZem HCL CD 120 MG CAP.24HR PO (14:48)
--- NOTE | 2023-05-23 17:24 | WPDPN ---
Progress Note: A&P Assessment and Plan (1) Acute CVA (cerebrovascular accident): Code(s): I63.9 - Cerebral infarction, unspecified Status: Acute Assessment and Plan: Patient had a recent CVA after being diagnosed with new onset atrial fibrillation with rapid ventricular response. She presents with deficits concerning for a new stroke. CT BRAIN reveals Focal areas of hypodensity and loss of the mancilla-white interface within the right temporal and right medial occipital lobes No acute intracranial hemorrhage, mass, or hydrocephalus. Patient will be admitted to the medical floor under observation status for clinical observation, tele monitoring, serial neuro checks, and neurological evaluation. He is already on dual anti-platelet with aspirin a Brilinta. Will resume her home Crestor, Xarelto. Given recurrent symptoms will obtain an echocardiogram and consult with Cardiology to investigate for possible source of embolism. Neurology has been consulted. Will try to obtain the recent brain MRI. 05/23/2023 interval history: 77-year-old female status post NSTEMI and cardiac stent placed recently presented emergency depart with syncopal episode is found to atrial fibrillation with RVR, patient is placed on metoprolol and the rate is trending down, patient clinical symptoms her stable and improved patient will be seen by Cardiology and further recommendation to follow will also consult neurologist for further recommendation. Patient's daughter is present in the room and gave updates. (2) Atrial fibrillation: Code(s): I48.91 - Unspecified atrial fibrillation Status: Acute Assessment and Plan: Currently asymptomatic and rate controlled. Continue metoprolol 100 mg p.o. b.i.d. and Xarelto 15 mg p.o. daily. (3) Hypothyroidism: Code(s): E03.9 - Hypothyroidism, unspecified Status: Acute Plan Continue supplementation with levothyroxine. Subjective Date/time seen: 05/23/23 17:24 Interval history: acute stroke HPI-Narrative: Patient is a 77-year-old female presenting as a code stroke.? Last known well was reportedly 2 PM.? EMS was called and found her to have slurred speech and left arm drift.? By the time she arrived to the ER, all the symptoms had resolved.? Currently she denies complaints.? Patient emergently taken to CT scan. Patient is reporting recurrent episodes of stroke during the recent week. In the ED the patient had the following vital signs a pulse rate of 97, respiration 170/99, pulse ox 100% on room air. CT scan of the brain reveals acute infarct in the left temporal and occipital lobes concerning for embolic events.? Patient was just discharged from an outside hospital this morning after being admitted for newly found A-fib with stroke.? Call out to [facility] to discuss recent hospitalization.? EKG shows atrial fibrillation with ventricular rate of 99, prolonged QTc, no acute ischemic changes. Dr. Kapadia from [facility] who reviewed today's imaging and compared it to her prior imaging states that it is unchanged.? It shows the known acute strokes in her temporal and occipital lobes.? He advises loading with Keppra and starting her on oral Keppra.? Dr. Scott was consulted.? He agrees with Keppra load, advises seizure precautions, possible EEG in the morning.? Advises to obtain MRI from [facility] if possible. 05/23/2023 interval history: 77-year-old female status post NSTEMI and cardiac stent placed recently presented emergency depart with syncopal episode is found to atrial fibrillation with RVR, patient is placed on metoprolol and the rate is trending down, patient clinical symptoms her stable and improved patient will be seen by Cardiology and further recommendation to follow will also consult neurologist for further recommendation. Patient's daughter is present in the room and gave updates. Review of Systems Review of Systems: CONSTITUTIONAL: Negative for any fevers, chills, night sweats,
[2023-05-23 17:57] LABS: Glucose Point of Care 118 mg/dl (65-105)
[2023-05-23 20:11] LABS: Glucose Point of Care 170 mg/dl (65-105)
[2023-05-23] MEDS: INSULIN GLARGINE (*BKC) 100 UNITS/ML 11 UNITS SUB-Q (21:42)
[2023-05-24] VITALS (13 sets, daily range): BP systolic 121–152; BP diastolic 52–76; PULSE 66–96; RESP 16–20; TEMP 36.2–36.8; O2SAT 97–100
[2023-05-24 04:57] LABS: Hematocrit 35.1 % (37.0-47.0); Hemoglobin 11.6 g/dL (12.0-15.0); Mean Corpuscular Hemoglobin 29.4 pg (26-34); Mean Corpuscular Volume 88.9 fl (80-100); Mean Platelet Volume 9.9 fl (7.4-10.4); Platelet Count Result 425 k/mm3 (150-375); Red Blood Count 3.95 M/mm3 (4.2-5.4)
[2023-05-24 05:02] LABS: Anion Gap 5 mmol/L (8-16); Blood Urea Nitrogen 23 mg/dL (7-17); Calcium 8.9 mg/dL (8.4-10.2); Carbon Dioxide 27 mmol/L (22-30); Chloride 100 mmol/L (98-107); Estimated CRCL calculation 32 ml/min; Estimated Glomerular Filt Rate 43; Glucose 130 mg/dL (65-110); Magnesium 1.8 mg/dL (1.6-2.3); Potassium 3.6 mmol/L (3.4-5.0); Sodium 132 mmol/L (137-145)
[2023-05-24] MEDS: LEVOTHYROXINE SODIUM 100 MCG TABLET PO (06:32)
[2023-05-24 08:02] LABS: Glucose Point of Care 155 mg/dl (65-105)
[2023-05-24] MEDS: TICAGRELOR 90 MG TABLET PO ×2 (10:31→17:57)
[2023-05-24] MEDS: ROSUVASTATIN 20 MG TABLET BY MOUTH (10:32)
[2023-05-24] MEDS: METOPROLOL TARTRATE 50 MG TAB 100 MG PO ×2 (10:32→21:49)
[2023-05-24] MEDS: dilTIAZem HCL CD 120 MG CAP.24HR PO (10:32)
[2023-05-24] MEDS: PANTOPRAZOLE 40 MG TABLET PO (10:32)
[2023-05-24] MEDS: ASPIRIN 81 MG CHEWABLE TABLET PO (10:32)
[2023-05-24] MEDS: amLODIPine BESYLATE 2.5 MG TABLET PO (10:32)
[2023-05-24] MEDS: MULTIVITAMINS THERAPEUTIC TAB (*BKC) 1 TABLET PO (10:32)
[2023-05-24] MEDS: RIVAROXABAN 15 MG TABLET PO (10:33)
[2023-05-24] MEDS: INSULIN ASPART (*BKC) 100 UNITS/ML 14 UNITS SUB-Q ×2 (10:38→17:57)
--- NOTE | 2023-05-24 11:16 | WPDNEUROLOGY ---
Neurology EEG Report General Information Date of Study: 05/24/23 TEST eeg DIAGNOSIS status post stroke with history of seizure-like activity CONDITION OF RECORDING awake and drowsy EEG NUMBER 2 3 - 154 CLINICAL HISTORY as per the information available patient has had heart attack and couple of strokes within the last couple of weeks. EEG DESCRIPTION Basic resting occipital frequency consists of small amount of low voltage 8 to 9 hertz per 2nd alpha admixed with low-voltage 15 to 18 hertz per 2nd beta. During drowsiness low to medium voltage 6 to 7 hertz per 2nd theta activity seen, bilateral symmetrical sleep activity is noted. Non paroxysmal. Nonfocal. Nonlateralizing. IMPRESSION No significant abnormalities noted
--- NOTE | 2023-05-24 11:20 | WPDNEUROPN ---
Subjective Date/time seen: 05/24/23 11:20 Interval history: considering the history of spells as per her daughter in addition to the documented right-sided stroke recently she is being started on the anticonvulsant that is Keppra for partial seizures Objective Data Vital Signs Vital Signs: Vital Signs - 24 hr 05/23/23 12:00 05/23/23 16:00 05/23/23 12:00 Temperature 36.4 C L 36.4 C Pulse Rate 115 H 91 113 H Respiratory Rate 18 16 Blood Pressure 155/89 H 142/67 H Pulse Oximetry 100 100 Oxygen Delivery 05/23/23 14:00 05/23/23 16:00 05/23/23 18:00 Temperature Pulse Rate 89 95 76 Respiratory Rate Blood Pressure Pulse Oximetry Oxygen Delivery 05/23/23 20:18 05/23/23 21:41 05/23/23 23:29 Temperature 36.4 C L 36.4 C L Pulse Rate 81 90 76 Respiratory Rate 18 18 Blood Pressure 147/57 H 136/58 L Pulse Oximetry 100 100 Oxygen Delivery 05/24/23 00:00 05/23/23 20:00 05/24/23 00:00 Temperature Pulse Rate 88 74 Respiratory Rate Blood Pressure Pulse Oximetry Oxygen Delivery Room Air 05/24/23 03:58 05/24/23 04:00 05/24/23 04:00 Temperature 36.4 C L Pulse Rate 70 69 Respiratory Rate 18 Blood Pressure 121/54 L Pulse Oximetry 99 Oxygen Delivery Room Air 05/24/23 08:00 05/24/23 10:32 Temperature 36.8 C Pulse Rate 93 92 Respiratory Rate 20 Blood Pressure 131/63 Pulse Oximetry 100 Oxygen Delivery Intake/Output Intake/Output: Intake & Output 05/21/23 05/22/23 05/23/23 05/24/23 23:59 23:59 23:59 23:59 Intake Total 100 2020 440 Output Total 300 100 Balance 100 1720 340 Meds/Results Medications: Active Medications Generic Name Dose Route Start Last Admin Trade Name Freq PRN Reason Stop Dose Admin Amlodipine Besylate 2.5 mg 05/23/23 09:00 05/24/23 10:32 Amlodipine Besylate 2.5 Mg Tablet PO 2.5 mg DAILY TEO Administration Aspirin 81 mg 05/23/23 09:00 05/24/23 10:32 Aspirin 81 Mg Chewable Tablet PO 81 mg DAILY TEO Administration Dextrose 12.5 gm 05/22/23 20:54 Dextrose 50% 25 Gm/50 Ml Syringe IV PUSH PRN PRN Hypoglycemia Protocol Diltiazem HCl 120 mg 05/23/23 14:00 05/24/23 10:32 Diltiazem Hcl Cd 120 Mg Cap.24hr PO 120 mg QAM TEO Administration Glucagon 1 mg 05/22/23 20:54 Glucagon For Inj 1 Mg Vial IM PRN PRN Hypoglycemia Protocol Glucose 15 gm 05/22/23 20:54 Glucose Oral Gel 15 Gm Of Glucse In 37.5 Gm Tube PO PRN PRN Hypoglycemia Protocol Dextrose 1,000 mls @ 100 mls/hr 05/22/23 20:54 Dextrose 5% 1,000 Ml IVPB PRN PRN Hypoglycemia Protocol Insulin Aspart 2 - 5 units 05/23/23 08:00 05/24/23 10:33 Insulin Aspart (*Bkc) 100 Units/Ml SUB-Q Not Given TIDWM [facility] Protocol Insulin Aspart 14 units 05/23/23 08:00 05/24/23 10:38 Insulin Aspart (*Bkc) 100 Units/Ml SUB-Q 14 units BIDWM TEO Administration Insulin Glargine 11 units 05/22/23 21:00 05/23/23 21:42 Insulin Glargine (*Bkc) 100 Units/Ml 0.15 units/kg (11 units) 11 units SUB-Q Administration HS [facility] Insulin Glargine 10 units 05/23/23 21:00 05/24/23 00:12 Insulin Glargine (*Bkc) 100 Units/Ml SUB-Q Not Given [facility] Levothyroxine Sodium 100 mcg 05/23/23 06:30 05/24/23 06:32 Levothyroxine Sodium 100 Mcg Tablet PO 100 mcg DAILY@0630 TEO Administration Metoprolol Tartrate 100 mg 05/23/23 09:00 05/24/23 10:32 Metoprolol Tartrate 50 Mg Tab PO 100 mg Q12HR TEO Administration Multivitamins Therapeutic 1 tablet 05/23/23 09:00 05/24/23 10:32 Multivitamins Therapeutic Tab (*Bkc) PO 1 tablet QAM TEO Administration Pantoprazole Sodium 40 mg 05/23/23 09:00 05/24/23 10:32 Pantoprazole 40 Mg Tablet PO 40 mg DAILY TEO Administration Perflutren Lipid Microsphere 0 ml 05/23/23 00:45 Perflutren Lipid Microspheres 1.5 Ml Vial Diluted To 10 Ml Total Volume IV PUSH 05/06
[2023-05-24 11:56] LABS: Glucose Point of Care 267 mg/dl (65-105)
[2023-05-24] MEDS: levETIRAcetam 250 MG TABLET PO ×2 (12:44→21:49)
[2023-05-24] MEDS: INSULIN ASPART (*BKC) 100 UNITS/ML SUB-Q (12:44)
--- NOTE | 2023-05-24 14:22 | PM.PNCARD ---
Progress Note: A&P Assessment and Plan (1) Atrial fibrillation with rapid ventricular response: Code(s): I48.91 - Unspecified atrial fibrillation Status: Acute Assessment and Plan: Patient is in atrial fibrillation with RVR. On Metoprolol 100mg BID. Echocardiogram shows LVEF is preserved, therefore, for additional rate control will start oral Diltiazem. Continue Xarelto. 05/24: Patient is now rate controlled. Continue Metoprolol, Diltiazem, and Xarelto. (2) Acute CVA (cerebrovascular accident): Code(s): I63.9 - Cerebral infarction, unspecified Status: Acute Assessment and Plan: Neurology is consulted. (3) Coronary artery disease: Code(s): I25.10 - Atherosclerotic heart disease of [place] coronary artery without angina pectoris Status: Acute Assessment and Plan: Patient tells me that she has a stent in her heart but cannot provide any further details, cannot say what year that was done. According to her medication list, patient is on triple therapy with ASA, Brilinta and Xarelto. Please obtain records from outside hospital / her primary Brush Machine Setter as we will need to clarify the details on her coronary artery disease. If patient has had recent PCI, and needs triple therapy, then Plavix is preferred instead of Brilinta due to the risks of bleeding with Brilinta. If her PCI was not recent, then there would not be an indication for triple therapy. Subjective Date/time seen: 05/24/23 14:22 Interval history: Reason for visit: Atrial fibrillation with RVR HPI: We are consulted for atrial fibrillation with RVR. This is a 77 year old female who initially presented to [facility] 05/22 as a code stroke. Patient had slurred speech and left arm drift with resolution of symptoms. Initially there was concern for acute infarcts in the left temporal and occipital lobes concerning for embolic events on CT scan. Patient was just discharged from an outside hospital earlier yesterday morning after being admitted for new diagnosis of atrial fibrillation and acute stroke. ER called the hospital to discuss her recent hospitalization, and it was noted that her imaging compared to the other hospital's imaging is similar and is unchanged. EKG on arrival shows rate controlled atrial fibrillation with incomplete LBBB, however, patient went into RVR overnight/this morning. Patient is reportedly on ASA, Brilinta, and Xarelto. When asked about her medications, patient cannot give me further details. States she has a stent in her heart but cannot say what year that was done. Patient overall is poor historian in providing any details about her medical condition. She denies chest pain, shortness of breath, otherwise states she feels fine. Date of service 05/24: Patient states she is feeling fine this afternoon. Tele with rate controlled atrial fibrillation. Review of Systems Review of Systems: 8 point ROS obtained. Negative, unless stated in HPI. Exam Const: General: comfortable and no acute distress HENMT: Mouth: Yes moist mucous membranes Eyes: General: appearance normal, both eyes and all related structures Sclera: sclerae normal Neck: Neck: supple Resp: Effort & Inspection: normal respiratory effort Cardio: Rhythm: abnormal rhythm irregularly irregular Skin: General skin exam: normal color Neuro: Speech: normal speech Psych: Mental Status: mental status grossly normal Affect: normal affect Objective Data Vital Signs Vital Signs: Vital Signs - 24 hr 05/23/23 16:00 05/23/23 16:00 05/23/23 18:00 Temperature 36.4 C Pulse Rate 91 95 76 Respiratory Rate 16 Blood Pressure 142/67 H Pulse Oximetry 100 Oxygen Delivery 05/23/23 20:18 05/23/23 21:41 05/23/23 23:29 Temperature 36.4 C L 36.4 C L Pulse Rate 81 90 76 Respiratory Rate 18 18 Blood Pressure 147/57 H 136/58 L Pulse Oximetry 100 100 Oxygen Delivery 05/24/23 00:00 05/23/23 20:00 05/24/23 00:00 Temper
[2023-05-24 16:12] LABS: Glucose Point of Care 148 mg/dl (65-105)
--- NOTE | 2023-05-24 17:17 | WPDPN ---
Progress Note: A&P Assessment and Plan (1) Acute CVA (cerebrovascular accident): Code(s): I63.9 - Cerebral infarction, unspecified Status: Acute Assessment and Plan: Patient had a recent CVA after being diagnosed with new onset atrial fibrillation with rapid ventricular response. She presents with deficits concerning for a new stroke. CT BRAIN reveals Focal areas of hypodensity and loss of the mancilla-white interface within the right temporal and right medial occipital lobes No acute intracranial hemorrhage, mass, or hydrocephalus. Patient will be admitted to the medical floor under observation status for clinical observation, tele monitoring, serial neuro checks, and neurological evaluation. He is already on dual anti-platelet with aspirin a Brilinta. Will resume her home Crestor, Xarelto. Given recurrent symptoms will obtain an echocardiogram and consult with Cardiology to investigate for possible source of embolism. Neurology has been consulted. Will try to obtain the recent brain MRI. 05/24/2023 interval history: 77-year-old female status post NSTEMI and cardiac stent placed recently presented emergency depart with syncopal episode is found to atrial fibrillation with RVR, patient is placed on metoprolol and diltiazem the rate is trending down, patient clinical symptoms her stable and improved patient is seen by Cardiology and further recommendation to follow consulted neurologist ans suspect with history of CVA, yaw rish of seizure started the patient on Keppra, for further. will continue to monitor and further recommendation to follow. (2) Atrial fibrillation: Code(s): I48.91 - Unspecified atrial fibrillation Status: Acute Assessment and Plan: Currently asymptomatic and rate controlled. Continue metoprolol 100 mg p.o. b.i.d. and Xarelto 15 mg p.o. daily. (3) Hypothyroidism: Code(s): E03.9 - Hypothyroidism, unspecified Status: Acute Plan Continue supplementation with levothyroxine. Subjective Date/time seen: 05/24/23 17:17 Interval history: acute stroke HPI-Narrative: Patient is a 77-year-old female presenting as a code stroke.? Last known well was reportedly 2 PM.? EMS was called and found her to have slurred speech and left arm drift.? By the time she arrived to the ER, all the symptoms had resolved.? Currently she denies complaints.? Patient emergently taken to CT scan. Patient is reporting recurrent episodes of stroke during the recent week. In the ED the patient had the following vital signs a pulse rate of 97, respiration 170/99, pulse ox 100% on room air. CT scan of the brain reveals acute infarct in the left temporal and occipital lobes concerning for embolic events.? Patient was just discharged from an outside hospital this morning after being admitted for newly found A-fib with stroke.? Call out to [facility] to discuss recent hospitalization.? EKG shows atrial fibrillation with ventricular rate of 99, prolonged QTc, no acute ischemic changes. Dr. Kapadia from [facility] who reviewed today's imaging and compared it to her prior imaging states that it is unchanged.? It shows the known acute strokes in her temporal and occipital lobes.? He advises loading with Keppra and starting her on oral Keppra.? Dr. Scott was consulted.? He agrees with Keppra load, advises seizure precautions, possible EEG in the morning.? Advises to obtain MRI from [facility] if possible. 05/24/2023 interval history: 77-year-old female status post NSTEMI and cardiac stent placed recently presented emergency depart with syncopal episode is found to atrial fibrillation with RVR, patient is placed on metoprolol and diltiazem the rate is trending down, patient clinical symptoms her stable and improved patient is seen by Cardiology and further recommendation to follow consulted neurologist ans suspect with history of CVA, yaw rish of seizure started the patient on Keppra, for further. will continue to monitor an
[2023-05-24 19:37] LABS: Glucose Point of Care 182 mg/dl (65-105)
--- NOTE | 2023-05-24 20:29 | PC.NURSE ---
This patient, Stephany Porter, was transferred to [facility] on 05/24/23 at 2024. Personal belongings sent with patient. Report given to SONNY Sahni. Appropriate documentation sent with patient.
[2023-05-24 21:15] LABS: Glucose Point of Care 93 mg/dl (65-105)
[2023-05-24] MEDS: INSULIN GLARGINE (*BKC) 100 UNITS/ML 10 UNITS SUB-Q (21:38)
[2023-05-25] VITALS (9 sets, daily range): BP systolic 119–141; BP diastolic 55–75; PULSE 60–105; RESP 16; TEMP 36.4–37.2; O2SAT 100
[2023-05-25 07:23] LABS: Hematocrit 34.9 % (37.0-47.0); Hemoglobin 11.5 g/dL (12.0-15.0); Mean Corpuscular Hemoglobin 29.3 pg (26-34); Mean Platelet Volume 9.8 fl (7.4-10.4); Platelet Count Result 419 k/mm3 (150-375); Red Blood Count 3.92 M/mm3 (4.2-5.4); White Blood Count 9.5 K/mm3 (4.5-10.0)
[2023-05-25 07:46] LABS: Glucose Point of Care 151 mg/dl (65-105)
--- NOTE | 2023-05-25 08:24 | PM.PNCARD ---
Progress Note: A&P Assessment and Plan (1) Atrial fibrillation with rapid ventricular response: Code(s): I48.91 - Unspecified atrial fibrillation Status: Acute Assessment and Plan: Patient is in atrial fibrillation with RVR. On Metoprolol 100mg BID. Echocardiogram shows LVEF is preserved, therefore, for additional rate control will start oral Diltiazem. Continue Xarelto. 05/24: Patient is now rate controlled. Continue Metoprolol, Diltiazem, and Xarelto. 05/25: Remains rate controlled. Some mild bradycardia during hours of sleep. Continue metoprolol and diltiazem for rate control. Xarelto should be continued as well, and would recommend increasing dose to 20mg daily as she does not have renal impairment, so no dose adjustment necessary. (2) Acute CVA (cerebrovascular accident): Code(s): I63.9 - Cerebral infarction, unspecified Status: Acute Assessment and Plan: Neurology is consulted. (3) Coronary artery disease: Code(s): I25.10 - Atherosclerotic heart disease of [place] coronary artery without angina pectoris Status: Acute Assessment and Plan: Patient tells me that she has a stent in her heart but cannot provide any further details, cannot say what year that was done. According to her medication list, patient is on triple therapy with ASA, Brilinta and Xarelto. Please obtain records from outside hospital / her primary Aviation Electronics Technician as we will need to clarify the details on her coronary artery disease. If patient has had recent PCI, and needs triple therapy, then Plavix is preferred instead of Brilinta due to the risks of bleeding with Brilinta. If her PCI was not recent, then there would not be an indication for triple therapy. Subjective Date/time seen: 05/25/23 08:24 Interval history: Reason for visit: Atrial fibrillation with RVR HPI: We are consulted for atrial fibrillation with RVR. This is a 77 year old female who initially presented to [place] 05/22 as a code stroke. Patient had slurred speech and left arm drift with resolution of symptoms. Initially there was concern for acute infarcts in the left temporal and occipital lobes concerning for embolic events on CT scan. Patient was just discharged from an outside hospital earlier yesterday morning after being admitted for new diagnosis of atrial fibrillation and acute stroke. ER called the hospital to discuss her recent hospitalization, and it was noted that her imaging compared to the other hospital's imaging is similar and is unchanged. EKG on arrival shows rate controlled atrial fibrillation with incomplete LBBB, however, patient went into RVR overnight/this morning. Patient is reportedly on ASA, Brilinta, and Xarelto. When asked about her medications, patient cannot give me further details. States she has a stent in her heart but cannot say what year that was done. Patient overall is poor historian in providing any details about her medical condition. She denies chest pain, shortness of breath, otherwise states she feels fine. Date of service 05/24: Patient states she is feeling fine this afternoon. Tele with rate controlled atrial fibrillation. Date of service 05/25/2023: She feels okay today. Complaining of some stiffness in between her shoulders. No chest pain, palpitations, shortness of breath. Review of Systems Review of Systems: 8 point ROS obtained. Negative, unless stated in HPI. All systems reviewed & are unremarkable except as noted in HPI and below (HPI) Exam Const: General: comfortable and no acute distress HENMT: Mouth: Yes moist mucous membranes Eyes: General: appearance normal, both eyes and all related structures Sclera: sclerae normal Neck: Neck: supple Resp: Effort & Inspection: normal respiratory effort Cardio: Rate: tachycardic Rhythm: abnormal rhythm irregularly irregular Skin: General skin exam: normal color Neuro: Speech: normal speech Psych: Mental Status: mental status otoniel
[2023-05-25] MEDS: MULTIVITAMINS THERAPEUTIC TAB (*BKC) 1 TABLET PO (09:11)
[2023-05-25] MEDS: INSULIN ASPART (*BKC) 100 UNITS/ML 14 UNITS SUB-Q ×2 (09:11→18:22)
[2023-05-25] MEDS: ASPIRIN 81 MG CHEWABLE TABLET PO (09:12)
[2023-05-25] MEDS: amLODIPine BESYLATE 2.5 MG TABLET PO (09:12)
[2023-05-25] MEDS: PANTOPRAZOLE 40 MG TABLET PO (09:12)
[2023-05-25] MEDS: RIVAROXABAN 15 MG TABLET PO (09:12)
[2023-05-25] MEDS: levETIRAcetam 250 MG TABLET PO ×2 (09:12→21:20)
[2023-05-25] MEDS: TICAGRELOR 90 MG TABLET PO (09:12)
[2023-05-25] MEDS: ROSUVASTATIN 20 MG TABLET BY MOUTH (09:12)
[2023-05-25] MEDS: dilTIAZem HCL CD 120 MG CAP.24HR PO (11:07)
[2023-05-25] MEDS: METOPROLOL TARTRATE 50 MG TAB 100 MG PO ×2 (11:07→21:21)
[2023-05-25 11:09] LABS: Anion Gap 9 mmol/L (8-16); Blood Urea Nitrogen 20 mg/dL (7-17); Calcium 9.5 mg/dL (8.4-10.2); Carbon Dioxide 23 mmol/L (22-30); Chloride 101 mmol/L (98-107); Estimated CRCL calculation 42 ml/min; Estimated Glomerular Filt Rate 60; Glucose 140 mg/dL (65-110); Magnesium 1.7 mg/dL (1.6-2.3); Potassium 4.2 mmol/L (3.4-5.0); Sodium 133 mmol/L (137-145)
[2023-05-25 11:20] LABS: Glucose Point of Care 252 mg/dl (65-105)
[2023-05-25] MEDS: INSULIN ASPART (*BKC) 100 UNITS/ML SUB-Q (12:33)
--- NOTE | 2023-05-25 13:06 | PCPTNOTE ---
On 05/25/23, the student, MIGEL Lee, provided care and completed [facility] documentation on this patient. I have reviewed the student's documentation and agree with the findings.
--- NOTE | 2023-05-25 13:11 | PCCCNOTE ---
On 05/25/23, the student, [Florecita Montes ], provided care and completed [facility] documentation on this patient. I have reviewed the student's documentation and agree with the findings.
--- NOTE | 2023-05-25 14:27 | WPDPN ---
Progress Note: A&P Assessment and Plan (1) Acute CVA (cerebrovascular accident): Code(s): I63.9 - Cerebral infarction, unspecified Status: Acute Assessment and Plan: Patient had a recent CVA after being diagnosed with new onset atrial fibrillation with rapid ventricular response. She presents with deficits concerning for a new stroke. CT BRAIN reveals Focal areas of hypodensity and loss of the mancilla-white interface within the right temporal and right medial occipital lobes No acute intracranial hemorrhage, mass, or hydrocephalus. Patient will be admitted to the medical floor under observation status for clinical observation, tele monitoring, serial neuro checks, and neurological evaluation. He is already on dual anti-platelet with aspirin a Brilinta. Will resume her home Crestor, Xarelto. Given recurrent symptoms will obtain an echocardiogram and consult with Cardiology to investigate for possible source of embolism. Neurology has been consulted. Will try to obtain the recent brain MRI. 05/25/2023 interval history: 77-year-old female status post NSTEMI and cardiac stent placed recently presented emergency depart with syncopal episode is found to atrial fibrillation with RVR, patient is placed on metoprolol and diltiazem the rate is trending down, patient clinical symptoms are stable and improved patient is seen by Cardiology and further recommendation to follow consulted neurologist ans suspect with history of CVA, high risk of seizure started the patient on Keppra, there is concern that patient has visual hullicinations and seeing things which are not there, to further evaluate, will do MRI of brain pending MRI clearance, will continue to monitor and further recommendation to follow. (2) Atrial fibrillation: Code(s): I48.91 - Unspecified atrial fibrillation Status: Acute Assessment and Plan: Currently asymptomatic and rate controlled. Continue metoprolol 100 mg p.o. b.i.d. and Xarelto 15 mg p.o. daily. (3) Hypothyroidism: Code(s): E03.9 - Hypothyroidism, unspecified Status: Acute Plan Continue supplementation with levothyroxine. Subjective Date/time seen: 05/25/23 14:27 Interval history: acute stroke HPI-Narrative: Patient is a 77-year-old female presenting as a code stroke.? Last known well was reportedly 2 PM.? EMS was called and found her to have slurred speech and left arm drift.? By the time she arrived to the ER, all the symptoms had resolved.? Currently she denies complaints.? Patient emergently taken to CT scan. Patient is reporting recurrent episodes of stroke during the recent week. In the ED the patient had the following vital signs a pulse rate of 97, respiration 170/99, pulse ox 100% on room air. CT scan of the brain reveals acute infarct in the left temporal and occipital lobes concerning for embolic events.? Patient was just discharged from an outside hospital this morning after being admitted for newly found A-fib with stroke.? Call out to [facility] to discuss recent hospitalization.? EKG shows atrial fibrillation with ventricular rate of 99, prolonged QTc, no acute ischemic changes. Dr. Kapadia from [facility] who reviewed today's imaging and compared it to her prior imaging states that it is unchanged.? It shows the known acute strokes in her temporal and occipital lobes.? He advises loading with Keppra and starting her on oral Keppra.? Dr. Scott was consulted.? He agrees with Keppra load, advises seizure precautions, possible EEG in the morning.? Advises to obtain MRI from [facility] if possible. 05/25/2023 interval history: 77-year-old female status post NSTEMI and cardiac stent placed recently presented emergency depart with syncopal episode is found to atrial fibrillation with RVR, patient is placed on metoprolol and diltiazem the rate is trending down, patient clinical symptoms are stable and improved patient is seen by Cardiology and further recommendation to follow consul
[2023-05-25 17:02] LABS: Glucose Point of Care 146 mg/dl (65-105)
[2023-05-25 21:11] LABS: Glucose Point of Care 155 mg/dl (65-105)
[2023-05-25] MEDS: INSULIN GLARGINE (*BKC) 100 UNITS/ML 10 UNITS SUB-Q (21:21)
[2023-05-26] VITALS (13 sets, daily range): BP systolic 122–155; BP diastolic 45–63; PULSE 51–88; RESP 16–17; TEMP 36.5–36.9; O2SAT 97–100
[2023-05-26 06:12] LABS: Hematocrit 32.8 % (37.0-47.0); Hemoglobin 10.7 g/dL (12.0-15.0); Mean Corpuscular HGB Conc 32.6 g/dl (32-36); Mean Corpuscular Hemoglobin 29.6 pg (26-34); Mean Corpuscular Volume 90.9 fl (80-100); Mean Platelet Volume 9.8 fl (7.4-10.4); Platelet Count Result 398 k/mm3 (150-375); Red Blood Count 3.61 M/mm3 (4.2-5.4); Red Cell Distribution Width 12.9 % (11.5-14.5); White Blood Count 9.2 K/mm3 (4.5-10.0)
[2023-05-26] MEDS: LEVOTHYROXINE SODIUM 100 MCG TABLET PO (06:19)
[2023-05-26 07:28] LABS: Anion Gap 9 mmol/L (8-16); Blood Urea Nitrogen 18 mg/dL (7-17); Calcium 9.3 mg/dL (8.4-10.2); Carbon Dioxide 26 mmol/L (22-30); Chloride 101 mmol/L (98-107); Estimated CRCL calculation 48 ml/min; Estimated Glomerular Filt Rate > 60; Glucose 123 mg/dL (65-110); Magnesium 1.9 mg/dL (1.6-2.3); Potassium 4.5 mmol/L (3.4-5.0); Sodium 136 mmol/L (137-145)
[2023-05-26 07:30] LABS: Glucose Point of Care 125 mg/dl (65-105)
[2023-05-26] MEDS: RIVAROXABAN 15 MG TABLET PO (08:10)
[2023-05-26] MEDS: PANTOPRAZOLE 40 MG TABLET PO (08:10)
[2023-05-26] MEDS: MULTIVITAMINS THERAPEUTIC TAB (*BKC) 1 TABLET PO (08:10)
[2023-05-26] MEDS: CLOPIDOGREL BISULFATE 75 MG TABLET PO (08:10)
[2023-05-26] MEDS: METOPROLOL TARTRATE 50 MG TAB 100 MG PO ×2 (08:10→21:59)
[2023-05-26] MEDS: ROSUVASTATIN 20 MG TABLET BY MOUTH (08:10)
[2023-05-26] MEDS: levETIRAcetam 250 MG TABLET PO ×2 (08:10→22:00)
[2023-05-26] MEDS: dilTIAZem HCL CD 120 MG CAP.24HR PO (08:10)
[2023-05-26] MEDS: ASPIRIN 81 MG CHEWABLE TABLET PO (08:10)
[2023-05-26] MEDS: INSULIN ASPART (*BKC) 100 UNITS/ML 14 UNITS SUB-Q ×2 (08:11→17:12)
[2023-05-26] MEDS: amLODIPine BESYLATE 2.5 MG TABLET PO (08:11)
--- NOTE | 2023-05-26 10:19 | PM.PNCARD ---
Progress Note: A&P Assessment and Plan (1) Atrial fibrillation with rapid ventricular response: Code(s): I48.91 - Unspecified atrial fibrillation Status: Acute Assessment and Plan: Patient is in atrial fibrillation with RVR. On Metoprolol 100mg BID. Echocardiogram shows LVEF is preserved, therefore, for additional rate control with oral Diltiazem. Continue Xarelto. 05/24: Patient is now rate controlled. Continue Metoprolol, Diltiazem, and Xarelto. 05/25: Remains rate controlled. Some mild bradycardia during hours of sleep. Continue metoprolol and diltiazem for rate control. Xarelto should be continued as well (2) Acute CVA (cerebrovascular accident): Code(s): I63.9 - Cerebral infarction, unspecified Status: Acute Assessment and Plan: Neurology is consulted. (3) Coronary artery disease: Code(s): I25.10 - Atherosclerotic heart disease of [place] coronary artery without angina pectoris Status: Acute Assessment and Plan: Patient tells me that she has a stent in her heart but cannot provide any further details, cannot say what year that was done. According to her medication list, patient is on triple therapy with ASA, clopidogrel and Xarelto. Please obtain records from outside hospital / her primary Budget Director as we will need to clarify the details on her coronary artery disease. If patient has had recent PCI, and needs triple therapy, continue aspirin and Plavix. If PCI was not recent, recommendation would be to with anticoagulation with 1 single anti-platelet agent. Plan Creatinine is stable was 0.9 Subjective Date/time seen: 05/26/23 10:19 Interval history: Reason for visit: Atrial fibrillation with RVR HPI: We are consulted for atrial fibrillation with RVR. This is a 77 year old female who initially presented to [facility] 05/22 as a code stroke. Patient had slurred speech and left arm drift with resolution of symptoms. Initially there was concern for acute infarcts in the left temporal and occipital lobes concerning for embolic events on CT scan. Patient was just discharged from an outside hospital earlier yesterday morning after being admitted for new diagnosis of atrial fibrillation and acute stroke. ER called the hospital to discuss her recent hospitalization, and it was noted that her imaging compared to the other hospital's imaging is similar and is unchanged. EKG on arrival shows rate controlled atrial fibrillation with incomplete LBBB, however, patient went into RVR overnight/this morning. Patient is reportedly on ASA, Brilinta, and Xarelto. When asked about her medications, patient cannot give me further details. States she has a stent in her heart but cannot say what year that was done. Patient overall is poor historian in providing any details about her medical condition. She denies chest pain, shortness of breath, otherwise states she feels fine. Date of service 05/24: Patient states she is feeling fine this afternoon. Tele with rate controlled atrial fibrillation. Date of service 05/25/2023: She feels okay today. Complaining of some stiffness in between her shoulders. No chest pain, palpitations, shortness of breath. Date of service 05/26/2023: No chest pain or shortness of breath. Feels okay from a cardiac perspective without any edema or palpitations Review of Systems Review of Systems: 8 point ROS obtained. Negative, unless stated in HPI. All systems reviewed & are unremarkable except as noted in HPI and below (HPI) ENT: Reports Normal hearing present Cardiovascular: Cardiovascular: Denies chest pain and Denies palpitations Respiratory: Respiratory: Denies dyspnea Exam Const: General: comfortable and no acute distress HENMT: Mouth: Yes moist mucous membranes Eyes: General: appearance normal, both eyes and all related structures Sclera: sclerae normal Neck: Neck: supple Resp: Effort & Inspection: normal respiratory effort Cardio: Rate:
[2023-05-26 11:22] LABS: Glucose Point of Care 186 mg/dl (65-105)
--- NOTE | 2023-05-26 12:27 | WPDNEUROPN ---
Subjective Date/time seen: 05/26/23 12:27 Interval history: 77 years old with history of atrial fibrillation with rapid ventricular response ,receiving metoprolol, diltiazem, Xarelto, aspirin and Plavix, history of underlying coronary artery disease and ongoing complaint of visual difficulties ,documented infarct involving the right thalamus, right temporal occipital region in the distribution of the right posterior cerebral artery and infarct in right temporal lobe and right cerebellum of chronic in nature or subacute, patient was advised that she should not be driving she is taking 3 medication to stop the clot formation ,all the mechanism of the fibrillation was explained in front of her family member, and re-emphasized that she should not be driving otherwise she remains stable at this time. Objective Data Vital Signs Vital Signs: Vital Signs - 24 hr 05/25/23 14:00 05/25/23 14:36 05/25/23 14:36 Temperature 37.2 C 37.0 C 37.2 C Pulse Rate 105 H 78 105 H Respiratory Rate 16 16 16 Blood Pressure 119/73 139/55 L 119/73 Pulse Oximetry 100 100 100 Oxygen Delivery 05/25/23 14:37 05/25/23 16:00 05/25/23 21:00 Temperature 37.1 C Pulse Rate 75 79 60 Respiratory Rate 16 Blood Pressure 129/73 Pulse Oximetry 100 Oxygen Delivery 05/25/23 21:00 05/26/23 00:00 05/26/23 04:00 Temperature 36.6 C Pulse Rate 83 59 L 53 L Respiratory Rate 16 Blood Pressure 121/64 Pulse Oximetry 100 Oxygen Delivery 05/26/23 06:00 05/26/23 08:10 05/26/23 08:00 Temperature 36.9 C Pulse Rate 80 88 64 Respiratory Rate 16 Blood Pressure 126/52 L Pulse Oximetry 100 Oxygen Delivery 05/26/23 08:00 05/26/23 08:06 05/26/23 08:00 Temperature 36.5 C Pulse Rate 57 L Respiratory Rate 17 Blood Pressure 150/58 H Pulse Oximetry 98 100 Oxygen Delivery Room Air Room Air 05/26/23 12:00 05/26/23 12:01 Temperature 36.5 C 36.5 C Pulse Rate 51 L 74 Respiratory Rate 17 17 Blood Pressure 155/63 H 138/49 L Pulse Oximetry 100 100 Oxygen Delivery Intake/Output Intake/Output: Intake & Output 05/23/23 05/24/23 05/25/2322/23 23:59 23:59 23:59 23:59 Intake Total 2019 1448 Output Total 300 100 Balance 3904 489 9081 1448 Meds/Results Medications: Active Medications Generic Name Dose Route Start Last Admin Trade Name Freq PRN Reason Stop Dose Admin Amlodipine Besylate 2.5 mg 05/23/23 09:00 05/26/23 08:11 Amlodipine Besylate 2.5 Mg Tablet PO 2.5 mg DAILY TEO Administration Aspirin 81 mg 05/23/23 09:00 05/26/23 08:10 Aspirin 81 Mg Chewable Tablet PO 81 mg DAILY TEO Administration Clopidogrel Bisulfate 75 mg 05/26/23 09:00 05/26/23 08:10 Clopidogrel Bisulfate 75 Mg Tablet PO 75 mg QAM TEO Administration Dextrose 12.5 gm 05/22/23 20:54 Dextrose 50% 25 Gm/50 Ml Syringe IV PUSH PRN PRN Hypoglycemia Protocol Diltiazem HCl 120 mg 05/23/23 14:00 05/26/23 08:10 Diltiazem Hcl Cd 120 Mg Cap.24hr PO 120 mg QAM TEO Administration Glucagon 1 mg 05/22/23 20:54 Glucagon For Inj 1 Mg Vial IM PRN PRN Hypoglycemia Protocol Glucose 15 gm 05/22/23 20:54 Glucose Oral Gel 15 Gm Of Glucse In 37.5 Gm Tube PO PRN PRN Hypoglycemia Protocol Dextrose 1,000 mls @ 100 mls/hr 05/22/23 20:54 Dextrose 5% 1,000 Ml IVPB PRN PRN Hypoglycemia Protocol Insulin Aspart 2 - 5 units 05/23/23 08:00 05/26/23 11:25 Insulin Aspart (*Bkc) 100 Units/Ml SUB-Q Not Given [facility] Protocol Insulin Aspart 14 units 05/23/23 08:00 05/26/23 08:11 Insulin Aspart (*Bkc) 100 Units/Ml SUB-Q 14 units BIDWM TEO Administration Insulin Glargine 10 units 05/23/23 21:00 05/25/23 21:21 Insulin Glargine (*Bkc) 100 Units/Ml SUB-Q 10 units HS TEO Administration Levetiracetam 250 mg 05/24/23 11:25 05/26/23 08:10 Levetiracetam 250 Mg Tablet PO 250 mg Q12HR S
--- NOTE | 2023-05-26 15:13 | WPDPN ---
Progress Note: A&P Assessment and Plan (1) Acute CVA (cerebrovascular accident): Code(s): I63.9 - Cerebral infarction, unspecified Status: Acute Assessment and Plan: Patient had a recent CVA after being diagnosed with new onset atrial fibrillation with rapid ventricular response. She presents with deficits concerning for a new stroke. CT BRAIN reveals Focal areas of hypodensity and loss of the mancilla-white interface within the right temporal and right medial occipital lobes No acute intracranial hemorrhage, mass, or hydrocephalus. Patient will be admitted to the medical floor under observation status for clinical observation, tele monitoring, serial neuro checks, and neurological evaluation. He is already on dual anti-platelet with aspirin a Brilinta. Will resume her home Crestor, Xarelto. Given recurrent symptoms will obtain an echocardiogram and consult with Cardiology to investigate for possible source of embolism. Neurology has been consulted. Will try to obtain the recent brain MRI. 05/26/2023 interval history: 77-year-old female status post NSTEMI and cardiac stent placed recently presented emergency depart with syncopal episode is found to atrial fibrillation with RVR, patient is placed on metoprolol and diltiazem the rate is trending down, patient clinical symptoms are stable and rate is improved, treated with DAPT and anticoagulated with Xarelto, patient is seen by Cardiology and further recommendation to follow consulted neurologist and suspect with history of CVA, MRI showed acute-subacute infarct 1. Acute infarcts involving the right thalamus and right temporal occipital region the expected distribution of right posterior cerebral artery. 2. Infarcts in the right temporal lobe and right cerebellum, likely subacute or chronic. high risk of seizure started the patient on Keppra, there is concern that patient has visual problems and seeing floaters,, and seeing things which are not there, to further evaluate, will continue to monitor and further recommendation to follow. (2) Atrial fibrillation: Code(s): I48.91 - Unspecified atrial fibrillation Status: Acute Assessment and Plan: Currently asymptomatic and rate controlled. Continue metoprolol 100 mg p.o. b.i.d. and Xarelto 15 mg p.o. daily. (3) Hypothyroidism: Code(s): E03.9 - Hypothyroidism, unspecified Status: Acute Plan Continue supplementation with levothyroxine. Subjective Date/time seen: 05/26/23 15:13 Interval history: Patient had a recent CVA after being diagnosed with new onset atrial fibrillation with rapid ventricular response. She presents with deficits concerning for a new stroke. CT BRAIN reveals Focal areas of hypodensity and loss of the mancilla-white interface within the right temporal and right medial occipital lobes No acute intracranial hemorrhage, mass, or hydrocephalus. Patient will be admitted to the medical floor under observation status for clinical observation, tele monitoring, serial neuro checks, and neurological evaluation. He is already on dual anti-platelet with aspirin a Brilinta. Will resume her home Crestor, Xarelto. Given recurrent symptoms will obtain an echocardiogram and consult with Cardiology to investigate for possible source of embolism. Neurology has been consulted. Will try to obtain the recent brain MRI. 05/26/2023 interval history: 77-year-old female status post NSTEMI and cardiac stent placed recently presented emergency depart with syncopal episode is found to atrial fibrillation with RVR, patient is placed on metoprolol and diltiazem the rate is trending down, patient clinical symptoms are stable and rate is improved, treated with DAPT and anticoagulated with Xarelto, patient is seen by Cardiology and further recommendation to follow consulted neurologist and suspect with history of CVA, MRI showed acute-subacute infarct 1. Acute infarcts involving the right thalamus and right temporal occip
[2023-05-26 16:56] LABS: Glucose Point of Care 166 mg/dl (65-105)
[2023-05-26] MEDS: INSULIN GLARGINE (*BKC) 100 UNITS/ML 10 UNITS SUB-Q (21:58)
[2023-05-26 23:00] LABS: Glucose Point of Care 227 mg/dl (65-105)
[2023-05-26 23:00] LABS: Glucose Point of Care 182 mg/dl (65-105)
[2023-05-27] VITALS (15 sets, daily range): BP systolic 120–152; BP diastolic 44–72; PULSE 60–107; RESP 16–17; TEMP 36.6–37.2; O2SAT 98–100
[2023-05-27] MEDS: LEVOTHYROXINE SODIUM 100 MCG TABLET PO (05:16)
[2023-05-27 07:23] LABS: Hematocrit 34.4 % (37.0-47.0); Hemoglobin 11.2 g/dL (12.0-15.0); Mean Corpuscular HGB Conc 32.6 g/dl (32-36); Mean Corpuscular Hemoglobin 29.6 pg (26-34); Mean Corpuscular Volume 90.8 fl (80-100); Mean Platelet Volume 10.1 fl (7.4-10.4); Platelet Count Result 389 k/mm3 (150-375); Red Blood Count 3.79 M/mm3 (4.2-5.4); Red Cell Distribution Width 13.1 % (11.5-14.5); White Blood Count 8.2 K/mm3 (4.5-10.0)
[2023-05-27 07:34] LABS: Glucose Point of Care 145 mg/dl (65-105)
[2023-05-27 07:34] LABS: Anion Gap 12 mmol/L (8-16); Blood Urea Nitrogen 16 mg/dL (7-17); Calcium 8.9 mg/dL (8.4-10.2); Carbon Dioxide 23 mmol/L (22-30); Chloride 101 mmol/L (98-107); Estimated CRCL calculation 48 ml/min; Estimated Glomerular Filt Rate > 60; Glucose 140 mg/dL (65-110); Magnesium 1.9 mg/dL (1.6-2.3); Potassium 4.1 mmol/L (3.4-5.0); Sodium 136 mmol/L (137-145)
[2023-05-27] MEDS: INSULIN ASPART (*BKC) 100 UNITS/ML 14 UNITS SUB-Q ×2 (08:35→16:46)
[2023-05-27] MEDS: dilTIAZem HCL CD 120 MG CAP.24HR PO (08:36)
[2023-05-27] MEDS: amLODIPine BESYLATE 2.5 MG TABLET PO (08:36)
[2023-05-27] MEDS: METOPROLOL TARTRATE 50 MG TAB 100 MG PO ×2 (08:36→21:34)
[2023-05-27] MEDS: PANTOPRAZOLE 40 MG TABLET PO (08:36)
[2023-05-27] MEDS: RIVAROXABAN 15 MG TABLET PO (08:37)
[2023-05-27] MEDS: MULTIVITAMINS THERAPEUTIC TAB (*BKC) 1 TABLET PO (08:37)
[2023-05-27] MEDS: levETIRAcetam 250 MG TABLET PO ×2 (08:37→21:34)
[2023-05-27] MEDS: ASPIRIN 81 MG CHEWABLE TABLET PO (08:37)
[2023-05-27] MEDS: ROSUVASTATIN 20 MG TABLET BY MOUTH (08:37)
[2023-05-27] MEDS: CLOPIDOGREL BISULFATE 75 MG TABLET PO (08:37)
--- NOTE | 2023-05-27 10:15 | PM.PNCARD ---
Progress Note: A&P Assessment and Plan (1) Atrial fibrillation with rapid ventricular response: Code(s): I48.91 - Unspecified atrial fibrillation Status: Acute Assessment and Plan: P On Metoprolol 100mg BID. Echocardiogram shows LVEF is preserved, therefore, for additional rate control with oral Diltiazem. Continue Xarelto. (2) Acute CVA (cerebrovascular accident): Code(s): I63.9 - Cerebral infarction, unspecified Status: Acute Assessment and Plan: Neurology is consulted. (3) Coronary artery disease: Code(s): I25.10 - Atherosclerotic heart disease of [place] coronary artery without angina pectoris Status: Acute Assessment and Plan: Patient tells me that she has a stent in her heart but cannot provide any further details, cannot say what year that was done. According to her medication list, patient is on triple therapy with ASA, clopidogrel and Xarelto. Please obtain records from outside hospital / her primary Inside Sales Lead as we will need to clarify the details on her coronary artery disease. If patient has had recent PCI, and needs triple therapy, continue aspirin and Plavix. If PCI was not recent, recommendation would be to with anticoagulation with 1 single anti-platelet agent. She is mildly anemic with a hemoglobin of 11 Subjective Date/time seen: 05/27/23 10:15 Interval history: Reason for visit: Atrial fibrillation with RVR HPI: We are consulted for atrial fibrillation with RVR. This is a 77 year old female who initially presented to [facility] 05/22 as a code stroke. Patient had slurred speech and left arm drift with resolution of symptoms. Initially there was concern for acute infarcts in the left temporal and occipital lobes concerning for embolic events on CT scan. Patient was just discharged from an outside hospital earlier yesterday morning after being admitted for new diagnosis of atrial fibrillation and acute stroke. ER called the hospital to discuss her recent hospitalization, and it was noted that her imaging compared to the other hospital's imaging is similar and is unchanged. EKG on arrival shows rate controlled atrial fibrillation with incomplete LBBB, however, patient went into RVR overnight/this morning. Patient is reportedly on ASA, Brilinta, and Xarelto. When asked about her medications, patient cannot give me further details. States she has a stent in her heart but cannot say what year that was done. Patient overall is poor historian in providing any details about her medical condition. She denies chest pain, shortness of breath, otherwise states she feels fine. Date of service 05/24: Patient states she is feeling fine this afternoon. Tele with rate controlled atrial fibrillation. Date of service 05/25/2023: She feels okay today. Complaining of some stiffness in between her shoulders. No chest pain, palpitations, shortness of breath. Date of service 05/26/2023: No chest pain or shortness of breath. Feels okay from a cardiac perspective without any edema or palpitations Date of service 05/27/2023: No active cardiac complaints. No chest pain, shortness breath, swelling Review of Systems Review of Systems: 8 point ROS obtained. Negative, unless stated in HPI. All systems reviewed & are unremarkable except as noted in HPI and below (HPI) ENT: Reports Normal hearing present Cardiovascular: Cardiovascular: Denies chest pain, Denies palpitations and Denies dyspnea Respiratory: Respiratory: Denies dyspnea Neurologic: Reports Normal hearing present Endocrine: Endocrine: Denies palpitations Exam Const: General: comfortable and no acute distress HENMT: Mouth: Yes moist mucous membranes Eyes: General: appearance normal, both eyes and all related structures Sclera: sclerae normal Neck: Neck: supple Resp: Effort & Inspection: normal respiratory effort Cardio: Rate: tachycardic Rhythm: abnormal rhythm irregularly irregular Skin: Ge
[2023-05-27 12:06] LABS: Glucose Point of Care 222 mg/dl (65-105)
--- NOTE | 2023-05-27 12:07 | WPDPN ---
Progress Note: A&P Assessment and Plan (1) Acute CVA (cerebrovascular accident): Code(s): I63.9 - Cerebral infarction, unspecified Status: Acute Assessment and Plan: Patient had a recent CVA after being diagnosed with new onset atrial fibrillation with rapid ventricular response. She presents with deficits concerning for a new stroke. CT BRAIN reveals Focal areas of hypodensity and loss of the mancilla-white interface within the right temporal and right medial occipital lobes No acute intracranial hemorrhage, mass, or hydrocephalus. Patient will be admitted to the medical floor under observation status for clinical observation, tele monitoring, serial neuro checks, and neurological evaluation. He is already on dual anti-platelet with aspirin a Brilinta. Will resume her home Crestor, Xarelto. Given recurrent symptoms will obtain an echocardiogram and consult with Cardiology to investigate for possible source of embolism. Neurology has been consulted. Will try to obtain the recent brain MRI. 05/27/2023 interval history: 77-year-old female status post NSTEMI and cardiac stent placed recently presented emergency depart with syncopal episode is found to atrial fibrillation with RVR, patient is placed on metoprolol and diltiazem the rate is trending down, patient clinical symptoms are stable and rate is improved, treated with DAPT and anticoagulated with Xarelto, patient is seen by Cardiology and further recommendation to follow consulted neurologist and suspect with history of CVA, MRI showed acute-subacute infarct 1. Acute infarcts involving the right thalamus and right temporal occipital region the expected distribution of right posterior cerebral artery. 2. Infarcts in the right temporal lobe and right cerebellum, likely subacute or chronic. high risk of seizure started the patient on Keppra, there is concern that patient has visual problems and seeing floaters,, and seeing things which are not there, patient is coming to terms with her condition, will transfer the patient to [facility] swing bed for therapy possibly tomorrow will continue to monitor and further recommendation to follow. (2) Atrial fibrillation: Code(s): I48.91 - Unspecified atrial fibrillation Status: Acute Assessment and Plan: Currently asymptomatic and rate controlled. Continue metoprolol 100 mg p.o. b.i.d. and Xarelto 15 mg p.o. daily. (3) Hypothyroidism: Code(s): E03.9 - Hypothyroidism, unspecified Status: Acute Plan Continue supplementation with levothyroxine. Subjective Date/time seen: 05/27/23 12:07 Interval history: 05/27/2023 interval history: 77-year-old female status post NSTEMI and cardiac stent placed recently presented emergency depart with syncopal episode is found to atrial fibrillation with RVR, patient is placed on metoprolol and diltiazem the rate is trending down, patient clinical symptoms are stable and rate is improved, treated with DAPT and anticoagulated with Xarelto, patient is seen by Cardiology and further recommendation to follow consulted neurologist and suspect with history of CVA, MRI showed acute-subacute infarct 1. Acute infarcts involving the right thalamus and right temporal occipital region the expected distribution of right posterior cerebral artery. 2. Infarcts in the right temporal lobe and right cerebellum, likely subacute or chronic. high risk of seizure started the patient on Keppra, there is concern that patient has visual problems and seeing floaters,, and seeing things which are not there, patient is coming to terms with her condition, will transfer the patient to [facility] swing bed for therapy possibly tomorrow will continue to monitor and further recommendation to follow. Review of Systems Review of Systems: CONSTITUTIONAL: Negative for any fevers, chills, night sweats, tiredness, fatigue, malaise, anorexia or weight loss. CARDIOVASCULAR: Negative for chest pain, palpitation
[2023-05-27] MEDS: INSULIN ASPART (*BKC) 100 UNITS/ML SUB-Q (12:08)
[2023-05-27 16:44] LABS: Glucose Point of Care 132 mg/dl (65-105)
[2023-05-27] MEDS: INSULIN GLARGINE (*BKC) 100 UNITS/ML 10 UNITS SUB-Q (21:34)
[2023-05-27 21:37] LABS: Glucose Point of Care 123 mg/dl (65-105)
[2023-05-28] VITALS: PULSE 57
[2023-05-28 04:00] VITALS: PULSE 70
[2023-05-28] MEDS: LEVOTHYROXINE SODIUM 100 MCG TABLET PO (05:23)
[2023-05-28 06:00] VITALS: BP 120/65; PULSE 77; RESP 18; TEMP 36.7; O2SAT 100
[2023-05-28 06:47] LABS: Hematocrit 31.8 % (37.0-47.0); Hemoglobin 10.6 g/dL (12.0-15.0); Mean Corpuscular HGB Conc 33.3 g/dl (32-36); Mean Corpuscular Hemoglobin 29.9 pg (26-34); Mean Corpuscular Volume 89.8 fl (80-100); Mean Platelet Volume 10.1 fl (7.4-10.4); Platelet Count Result 378 k/mm3 (150-375); Red Blood Count 3.54 M/mm3 (4.2-5.4); White Blood Count 9.7 K/mm3 (4.5-10.0)
[2023-05-28 06:53] LABS: Anion Gap 9 mmol/L (8-16); Blood Urea Nitrogen 17 mg/dL (7-17); Carbon Dioxide 23 mmol/L (22-30); Chloride 102 mmol/L (98-107); Estimated CRCL calculation 49 ml/min; Estimated Glomerular Filt Rate > 60; Glucose 130 mg/dL (65-110); Magnesium 1.8 mg/dL (1.6-2.3); Sodium 134 mmol/L (137-145)
[2023-05-28 07:28] LABS: Glucose Point of Care 140 mg/dl (65-105)
[2023-05-28 08:00] VITALS: PULSE 77; O2SAT 100
--- NOTE | 2023-05-28 09:27 | PCPTNOTE ---
The patient treatment was not able to be completed due to patient not feeling well. Patient states she is constipated and feels uncomfortable. Will plan to continue treatment per plan of care.
[2023-05-28 09:33] VITALS: PULSE 76
[2023-05-28] MEDS: DOCUSATE SODIUM 100 MG CAPSULE PO (09:33)
[2023-05-28] MEDS: levETIRAcetam 250 MG TABLET PO (09:33)
[2023-05-28] MEDS: ASPIRIN 81 MG CHEWABLE TABLET PO (09:33)
[2023-05-28] MEDS: PANTOPRAZOLE 40 MG TABLET PO (09:33)
[2023-05-28] MEDS: ROSUVASTATIN 20 MG TABLET BY MOUTH (09:33)
[2023-05-28] MEDS: CLOPIDOGREL BISULFATE 75 MG TABLET PO (09:33)
[2023-05-28] MEDS: polyethylene glycoL 3350 17 GM POWD.PACK PO (09:33)
[2023-05-28] MEDS: amLODIPine BESYLATE 2.5 MG TABLET PO (09:33)
[2023-05-28] MEDS: dilTIAZem HCL CD 120 MG CAP.24HR PO (09:33)
[2023-05-28] MEDS: MULTIVITAMINS THERAPEUTIC TAB (*BKC) 1 TABLET PO (09:33)
[2023-05-28] MEDS: METOPROLOL TARTRATE 50 MG TAB 100 MG PO (09:33)
[2023-05-28] MEDS: RIVAROXABAN 15 MG TABLET PO (09:33)
--- NOTE | 2023-05-28 09:48 | PC.NURSE ---
Addendum entered by Camelia Casey RN 05/28/23 09:48: Dr Boone aware Original Note: Held scheduled novolog due to glucose 140 and patient not eating breakfast.
--- NOTE | 2023-05-28 11:03 | PM.DS ---
DS: Admitting Diagnosis Discharge Date 05/28/2023 Admitting Diagnosis acute stroke DS: Discharge Diagnosis Discharge Diagnosis (1) Acute CVA (cerebrovascular accident): Code(s): I63.9 - Cerebral infarction, unspecified Status: Acute Assessment and Plan: Patient had a recent CVA after being diagnosed with new onset atrial fibrillation with rapid ventricular response. She presents with deficits concerning for a new stroke. CT BRAIN reveals Focal areas of hypodensity and loss of the mancilla-white interface within the right temporal and right medial occipital lobes No acute intracranial hemorrhage, mass, or hydrocephalus. Patient will be admitted to the medical floor under observation status for clinical observation, tele monitoring, serial neuro checks, and neurological evaluation. He is already on dual anti-platelet with aspirin a Brilinta. Will resume her home Crestor, Xarelto. Given recurrent symptoms will obtain an echocardiogram and consult with Cardiology to investigate for possible source of embolism. Neurology has been consulted. Will try to obtain the recent brain MRI. 05/27/2023 interval history: 77-year-old female status post NSTEMI and cardiac stent placed recently presented emergency depart with syncopal episode is found to atrial fibrillation with RVR, patient is placed on metoprolol and diltiazem the rate is trending down, patient clinical symptoms are stable and rate is improved, treated with DAPT and anticoagulated with Xarelto, patient is seen by Cardiology and further recommendation to follow consulted neurologist and suspect with history of CVA, MRI showed acute-subacute infarct 1. Acute infarcts involving the right thalamus and right temporal occipital region the expected distribution of right posterior cerebral artery. 2. Infarcts in the right temporal lobe and right cerebellum, likely subacute or chronic. high risk of seizure started the patient on Keppra, there is concern that patient has visual problems and seeing floaters,, and seeing things which are not there, patient is coming to terms with her condition, will transfer the patient to [facility] swing bed for therapy possibly tomorrow will continue to monitor and further recommendation to follow. (2) Atrial fibrillation: Code(s): I48.91 - Unspecified atrial fibrillation Status: Acute Assessment and Plan: Currently asymptomatic and rate controlled. Continue metoprolol 100 mg p.o. b.i.d. and Xarelto 15 mg p.o. daily. (3) Hypothyroidism: Code(s): E03.9 - Hypothyroidism, unspecified Status: Acute Plan Continue supplementation with levothyroxine. DS: Summary Hospital Course Reason for hospitalization: acute stroke Narrative: Patient is a 77-year-old female presenting as a code stroke.? Last known well was reportedly 2 PM.? EMS was called and found her to have slurred speech and left arm drift.? By the time she arrived to the ER, all the symptoms had resolved.? Currently she denies complaints.? Patient emergently taken to CT scan. Patient is reporting recurrent episodes of stroke during the recent week. In the ED the patient had the following vital signs a pulse rate of 97, respiration 170/99, pulse ox 100% on room air. CT scan of the brain reveals acute infarct in the left temporal and occipital lobes concerning for embolic events.? Patient was just discharged from an outside hospital this morning after being admitted for newly found A-fib with stroke.? Call out to [facility] to discuss recent hospitalization.? EKG shows atrial fibrillation with ventricular rate of 99, prolonged QTc, no acute ischemic changes. Dr. Kapadia from [facility] who reviewed today's imaging and compared it to her prior imaging states that it is unchanged.? It shows the known acute strokes in her temporal and occipital lobes.? He advises loading with Keppra and starting her on oral Keppra.? Dr. Scott was consulted.? He agrees with Keppra load, advises s
[2023-05-28 11:25] LABS: Glucose Point of Care 150 mg/dl (65-105)
[2023-05-28 13:24] LABS: Glucose Point of Care 182 mg/dl (65-105)
== END 2023-05-28 13:32 | disposition home health service (06) | DRG 66 ==
LOC: ANHED 16:08 → ANHIMU 18:10 → ANH3MEDSUR 05-24 21:11
PROVIDERS: Internal Medicine; Admitting Provider Internal Medicine; Emergency Provider Emergency Medicine; Visit Provider Family Medicine
DX: I63.9 Cerebral infarction, unspecified (principal); R47.81 Slurred speech; I48.91 Unspecified atrial fibrillation; E03.9 Hypothyroidism, unspecified; I10 Essential (primary) hypertension; E11.9 Type 2 diabetes mellitus without complications; I25.10 Atherosclerotic heart disease of native coronary artery without angina pectoris; Z90.49 Acquired absence of other specified parts of digestive tract; Z90.710 Acquired absence of both cervix and uterus; Z87.891 Personal history of nicotine dependence; Z95.5 Presence of coronary angioplasty implant and graft; I25.2 Old myocardial infarction
CPT/HCPCS: 36415; 70496; 70498; 70551; 71045; 80048; 80053; 82948; 83036; 83735; 84484; 85025; 85027; 85610; 85730; 93005; 93306; 95816; 96365; 97116; 97161; 97165; 97530; 97535; 99285; A9270; G0378; J1815; J1953; Q9967

== ENCOUNTER 2023-06-19 12:09 | Emergency (ER) | payer MEDICARE, OTHER, SELFPAY ==
[2023-06-19 12:19] VITALS: BP 156/68; PULSE 72; RESP 18; TEMP 36.4; O2SAT 99
[2023-06-19 12:54] VITALS: BP 164/75; PULSE 77
--- NOTE | 2023-06-19 12:54 | ED.FEMALEGU ---
HPI - Female Genitourinary General Chief complaint: Urogenital-Female Stated complaint: hematuria Time Seen by Provider: 06/19/23 12:18 History of Present Illness HPI Narrative: Patient is a 77-year-old female with history of A-fib on Xarelto, recent CVAs and NSTEMI on Plavix and aspirin, hypertension, hypothyroidism presenting with hematuria. Patient's daughter is at bedside and assists with the history. States that about 6 weeks ago the patient started to have blood in her urine. States it happened after she was started on Xarelto. They told her PCP who obtained a urinalysis and told them that there is no infection. There was no follow-up beyond this. She continues to have hematuria and states that there is more blood over the last several weeks. States that she has been feeling generally weak and intermittently lightheaded. They called her PCP today who advised that she come to the ER. No headache, new numbness or weakness, chest pain, shortness of breath, abdominal pain, nausea or vomiting, diarrhea, leg swelling. Related Data Home Medications Medication Instructions Recorded Confirmed aspirin 81 mg chewable tablet 81 mg PO DAILY 05/13/23 05/13/23 clonidine HCl 0.1 mg tablet 0.1 mg PO TID 05/13/23 05/13/23 docusate sodium 100 mg capsule 100 mg PO DAILY 05/13/23 05/13/23 insulin glargine 100 unit/mL (3 10 unit subcut QPM 05/13/23 05/13/23 mL) subcutaneous pen (Lantus Solostar U-100 Insulin) losartan 100 mg tablet 100 mg PO DAILY 05/13/23 05/13/23 multivitamin-ferrous 1 tablet PO DAILY 05/13/23 05/13/23 fumarate-folic acid 18 mg-400 mcg tablet (Centrum Women) mvn-vit C 250 mg-B.coagulans 1 tablet PO DAILY 05/13/23 05/13/23 166.67 million cell-herb chewable tablet (Airborne Plus Probiotic) sitagliptin phosphate 100 mg 100 mg PO DAILY 05/13/23 05/13/23 tablet (Januvia) insulin aspart U-100 100 unit/mL 14 unit subcut BID 05/22/23 05/22/23 (3 mL) subcutaneous pen levothyroxine 100 mcg tablet 100 mcg PO DAILY 05/22/23 05/22/23 (Synthroid) metoprolol tartrate 100 mg tablet 100 mg PO BID 05/22/23 05/22/23 pantoprazole 40 mg tablet,delayed 40 mg PO DAILY 05/22/23 05/22/23 release rivaroxaban 15 mg tablet (Xarelto) 15 mg PO DAILY 05/22/23 05/22/23 rosuvastatin 10 mg tablet (Crestor) 20 mg DAILY 05/22/23 05/22/23 Allergies Allergy/AdvReac Type Severity Reaction Status Date / Time atorvastatin [From Lipitor] Allergy Hives Verified 06/08/23 12:29 propoxyphene [From Darvon] Allergy Unknown Verified 06/08/23 12:29 Xbfstug-LNH-TnK Reductase Allergy Hives Verified 06/08/23 12:29 Inhibitor glipizide AdvReac Dizziness Verified 06/08/23 12:29 metformin AdvReac Other Verified 06/08/23 12:29 Streptomyces Albus Allergy Hives Uncoded 06/08/23 12:29 Review of Systems Review of Systems: All systems reviewed & are unremarkable except as noted in HPI and below PMFSH Past Medical History Medical History Hypertension Hypothyroidism Type 2 diabetes mellitus Surgical History Surgical History H/O: hysterectomy History of bladder suspension procedure History of cataract surgery Hx of appendectomy Previous back surgery x2 S/P oophorectomy Family History Family History Mother Angina concurrent with and due to arteriosclerosis of coronary artery Heart disease CAD (coronary artery disease) Sibling Heart disease CAD (coronary artery disease) Social History Social History Smoking packs per day: 0.5 Smoking cigarettes per day: 10.0 Years smoked: 15 Smoking pack-years: 7.50 Smoking status: Former smoker Alcohol intake: former Substance use: never Substance use type: does not use Lack of Transportation: No Lack of Food: Never True Current Housing: [place]
[2023-06-19 12:58] VITALS: BP 160/71; PULSE 77
[2023-06-19 13:00] VITALS: BP 166/83; PULSE 77
[2023-06-19 13:02] VITALS: BP 151/81; PULSE 90
[2023-06-19 13:14] LABS: Alanine Aminotransferase 19 U/L (6-35); Albumin Level 4.6 g/dL (3.5-5.1); Alkaline Phosphatase 40 U/L (38-126); Anion Gap 11 mmol/L (8-16); Aspartate Amino Transferase 53 U/L (14-36); Bilirubin,Total 0.8 mg/dL (0.2-1.3); Blood Urea Nitrogen 16 mg/dL (7-17); Calcium 9.2 mg/dL (8.4-10.2); Carbon Dioxide 23 mmol/L (22-30); Chloride 99 mmol/L (98-107); Estimated Glomerular Filt Rate > 60; Glucose 134 mg/dL (65-110); Potassium 5.1 mmol/L (3.4-5.0); Sodium 133 mmol/L (137-145)
[2023-06-19 13:16] LABS: Basophils Absolute Auto 0.1 K/mm3 (0.0-0.1); Basophils Percent Auto 0.9 % (0.2-1.2); Eosinophils Absolute Auto 0.1 K/mm3 (0-0.3); Eosinophils Percent Auto 1.4 % (0-4.4); Hematocrit 36.8 % (37.0-47.0); Hemoglobin 11.9 g/dL (12.0-15.0); Immature Granulocyte Absolute 0.03 K/mm3 (0.00-0.031); Immature Granulocyte Percent A 0.4 % (0-0.5); Lymphocytes Absolute Auto 1.69 K/mm3 (0.9-3.2); Mean Corpuscular HGB Conc 32.3 g/dl (32-36); Mean Corpuscular Hemoglobin 29.4 pg (26-34); Mean Corpuscular Volume 90.9 fl (80-100); Mean Platelet Volume 9.6 fl (7.4-10.4); Monocytes Absolute Auto 0.9 K/mm3 (0.1-0.6); Neutrophils Absolute Auto 5.7 K/mm3 (1.3-6.7); Neutrophils Percent Auto 67.3 % (45.5-73.1); Platelet Count Result 324 k/mm3 (150-375); Red Blood Count 4.05 M/mm3 (4.2-5.4); Red Cell Distribution Width 13.2 % (11.5-14.5); White Blood Count 8.5 K/mm3 (4.5-10.0)
[2023-06-19 13:19] LABS: INR 1.8; Partial Thromboplastin Time 35.4 SECONDS (22.3-36.8); Prothrombin Time 21.5 Seconds (11.1-14.7)
[2023-06-19 13:31] LABS: Bacteria Urine None Seen /hpf; Non Pathogenic Casts 0-2; RBC Urine >100 /hpf (0-2); Squamous Epithelial Cell Urine Occasional /hpf (Few)
[2023-06-19] MEDS: LACTATED RINGERS 1,000 ML 999 ML IV CONT (13:32)
[2023-06-19 13:34] LABS: Appearance Urine Cloudy (Clear); Bilirubin Urine Negative (Negative); Blood Urine 3+ (Negative); Glucose Urine UA Negative (Negative); Ketones Urine Negative (Negative); Leukocyte Esterase Ur 2+ LEU/UL (Negative); Nitrate Urine Negative (Negative); Protein Urine 2+ mg/dL (Negative); Specific Grav Ur 1.007 (1.001-1.035); Urobilinogen Urine 0.2 mg/dL (<2.0)
[2023-06-19 13:37] LABS: Color Urine Amber (Yellow)
[2023-06-19 13:38] LABS: Add Urine Microscopic? YES
[2023-06-19] MEDS: CEPHALEXIN 500 MG CAPSULE PO (15:10)
[2023-06-19 16:00] VITALS: BP 150/65; PULSE 72; RESP 17; O2SAT 99
== END 2023-06-19 15:15 | disposition home or self-care (01) ==
PROVIDERS: Emergency Provider Emergency Medicine
DX: N39.0 Urinary tract infection, site not specified (principal); R31.9 Hematuria, unspecified; I48.91 Unspecified atrial fibrillation; I25.2 Old myocardial infarction; I10 Essential (primary) hypertension; E11.9 Type 2 diabetes mellitus without complications; E03.9 Hypothyroidism, unspecified; Z86.73 Personal history of transient ischemic attack (TIA), and cerebral infarction without residual deficits; Z87.891 Personal history of nicotine dependence; Z79.01 Long term (current) use of anticoagulants; Z79.02 Long term (current) use of antithrombotics/antiplatelets; Z79.82 Long term (current) use of aspirin; Z79.4 Long term (current) use of insulin; Z79.84 Long term (current) use of oral hypoglycemic drugs
CPT/HCPCS: 36415; 80053; 81001; 85025; 85610; 85730; 87086; 96360; 99283; A9270; J7120

== ENCOUNTER 2023-06-29 07:21 | Outpatient (CLI) | payer MEDICARE, OTHER, SELFPAY ==
--- NOTE | ~2023-06-29 | CT_ITS ---
EXAMINATION: CT abdomen pelvis wo/w con DATE: 06/29/2023 08:51 INDICATION: Gross hematuria. TECHNIQUE: Computed tomography (CT) of the abdomen and pelvis was performed without and with intraven ous contrast using a total of 130 mL Omnipaque-350 intravenous contrast with a double-bolus technique for simultaneous opacification of the renal parenchyma and renal collecting system. Automated exposu re control and iterative reconstruction technique were employed. The dose-length product was 1341.78 mGy-cm. COMPARISON: None FINDINGS: The visualized portions of the lung bases demonstrate mild atelectasis and mild chronic rafi g disease. No pleural effusion. There is a moderate-sized sliding hernia. Cardiomegaly is noted. No p ericardial effusion. The liver is normal. There are gallstones in the gallbladder, which is normal in size. The spleen, pancreas, and adrenal glands are normal. There are areas of volume loss and hypoen hancement in the kidneys. There is mild right hydronephrosis and hydroureter There is an 8 mm stone i n right kidney. There is urothelial thickening in the right renal pelvis. There is a 6 mm stone in ri ght ureter where it crosses the iliac vessels. The left ureter is well opacified. There is urothelial thickening in left renal pelvis. There is a 9 mm stone in left kidney. There is a 14 mm stone in lef t renal pelvis. There are no dilated loops of bowel. The appendix is not visualized. There are widesp read arterial calcifications. There are no pathologically enlarged lymph nodes. There is trace pelvic ascites. The bladder is normal. There is mild lumbar spondylosis. IMPRESSION: 1. 6 mm stone in mid right ureter with mild right hydronephrosis and hydroureter. 2. Bilateral pyelitis. Bilateral pyelonephritis, likely subacute. 3. Bilateral nonobstructing kidney stones. Reviewed, dictated and finalized at location A. IMPRESSION: 1. 6 mm stone in mid right ureter with mild right hydronephrosis and hydrourete r. 2. Bilateral pyelitis. Bilateral pyelonephritis, likely subacute. 3. Bilateral nonobstructing kidney stones.
== END 2023-06-29 07:22 | disposition home or self-care (01) ==
PROVIDERS: PCP Physician Assistant; Visit Provider Physician Assistant
DX: R31.0 Gross hematuria (principal); N13.2 Hydronephrosis with renal and ureteral calculous obstruction; N12 Tubulo-interstitial nephritis, not specified as acute or chronic
CPT/HCPCS: 74178; Q9967

== ENCOUNTER 2023-08-16 15:24 | Observation (INO) | payer MEDICARE, OTHER, SELFPAY ==
[2023-08-16] VITALS (48 sets, daily range): BP systolic 128–197; BP diastolic 41–84; PULSE 38–61; RESP 11–20; TEMP 36.3–36.7; O2SAT 95–100; BMI 26.2
--- NOTE | ~2023-08-16 | MR_ITS ---
EXAMINATION: MR brain/brain stem wo/w con DATE: 08/17/2023 08:00 INDICATION: Slurred speech. Confusion. TECHNIQUE: Magnetic resonance imaging (MRI) of the brain and brainstem was performed without and with 12 mL MultiHance intravenous contrast. COMPARISON: Brain MRI 05/25/2023, head CT 08/16/2023 FINDINGS: There is an old infarct in right temporal lobe. There is an old infarct in right temporo-oc cipital region. There is a small old infarct in left temporal lobe. There is a small old infarct in t he left basal ganglia. There are old lacunar infarcts in the naheed. There is no intracranial hemorrhag e, acute infarction, or abnormal intracranial mass lesion. There is ex vacuo dilatation of trigone of right lateral ventricle. There are likely changes of ocular lens replacement surgeries. There are ol d fracture deformities of the left zygomaticomaxillary complex. The mastoid air cells are normal. IMPRESSION: 1. Old infarcts in the brain. Reviewed, dictated and finalized at location A.
--- NOTE | ~2023-08-16 | US_ITS ---
EXAMINATION: US renal BI DATE: 08/17/2023 08:44 INDICATION: Acute kidney injury, recent kidney stones TECHNIQUE: Multiple grayscale and Doppler ultrasound images of the kidneys were obtained. COMPARISON: CT, 06/29/2023 FINDINGS: The right kidney measures 10.7 x 4.8 x 4.9 cm. The left kidney measures 11.2 x 5.2 x 5.1 cm . The kidneys demonstrate normal parenchymal echogenicity. There is a 6 mm stone of the right kidney lower pole. There is a 7 mm stone of the left kidney lower pole. The previously described stone in th e left renal pelvis is not definitely identified. A stent is noted in the left renal pelvis. There is mild bilateral hydronephrosis. The bladder is normal. IMPRESSION: 1. Bilateral nephrolithiasis. 2. Mild bilateral hydronephrosis. Reviewed, dictated and finalized at location B.
--- NOTE | ~2023-08-16 | CT_ITS ---
EXAMINATION: CT brain wo con DATE: 08/16/2023 15:52 INDICATION: Slurred speech. Bilateral extremity weakness. TECHNIQUE: Computed tomography (CT) of the head was performed without intravenous contrast. The mA wa s adjusted according to patient size. Iterative reconstruction technique was employed. The dose-lengt h product was 605.33 mGy-cm. COMPARISON: Head CT 05/22/2023, brain MRI 05/25/2023 FINDINGS: There is an old infarct in the right temporal lobe. There is an old infarct in the right te mporal occipital region. There is an old infarct in the right thalamus. There is no intracranial hemo rrhage, acute infarction, or abnormal intracranial mass lesion. The ventricles are normal in size. Th ere are likely changes of ocular lens replacement surgeries. There are old fracture deformities of th e left zygomaticomaxillary complex. The mastoid air cells are normal. IMPRESSION: 1. Old infarcts involving the right temporal lobe, right temporal occipital region, and right thalamu s. Reviewed, dictated and finalized at location A. IMPRESSION: 1. Old infarcts involving the right temporal lobe, right temporal occipital reg ion, and right thalamus.
--- NOTE | ~2023-08-16 | XR_ITS ---
EXAMINATION: XR chest 1V DATE: 08/16/2023 15:57 INDICATION: Slurred speech. Weakness. TECHNIQUE: A single frontal view of the chest was obtained. COMPARISON: Chest 2 views 05/22/2023, CT abdomen and pelvis 06/29/2023 FINDINGS: There is no pneumonia, pleural effusion, or pneumothorax. The heart size is normal. There i s a moderate-sized hiatal hernia. IMPRESSION: 1. Moderate-sized hiatal hernia. Reviewed, dictated and finalized at location A.
--- NOTE | 2023-08-16 15:37 | ECG_ITS ---
Measurements Intervals [place] Rate: 47 P: 42 MT: 287 QRS: -5 QRSD: 112 T: -6 QT: 478 QTc: 426 Interpretive Statements SINUS BRADYCARDIA WITH FIRST DEGREE AV BLOCK LEFT VENTRICULAR HYPERTROPHY AND ST-T CHANGE [VOLTAGE CRITERIA PLUS ST/T ABNORMALITY] INFERIOR MYOCARDIAL INFARCTION , PROBABLY OLD [40+ ms Q WAVE AND/OR ST/T ABNORMALITY IN II/aVF] WARNING: DATA QUALITY MAY AFFECT INTERPRETATION ABNORMAL ECG COMPARED TO ECG 05/23/2023 08:41:38 SINUS BRADYCARDIA WITH FIRST-DEGREE AV BLOCK REPLACES ATRIAL FIBRILLATION Electronically Signed On 08-17-2023 7:25:21 CDT by Eliseo Chery M.D.
[2023-08-16 15:44] LABS: Glucose Point of Care 93 mg/dl (65-105)
--- NOTE | 2023-08-16 15:49 | PC.NURSE ---
Patient off unit to CT.
[2023-08-16 16:16] LABS: Basophils Percent Auto 0.3 % (0.2-1.2); Eosinophils Percent Auto 0.3 % (0-4.4); Hemoglobin 11.9 g/dL (12.0-15.0); Immature Granulocyte Absolute 0.06 K/mm3 (0.00-0.031); Immature Granulocyte Percent A 0.5 % (0-0.5); Lymphocytes Absolute Auto 2.14 K/mm3 (0.9-3.2); Lymphocytes Percent Auto 18.4 % (18.3-44.2); Mean Corpuscular Hemoglobin 28.5 pg (26-34); Mean Corpuscular Volume 83.9 fl (80-100); Mean Platelet Volume 9.6 fl (7.4-10.4); Monocytes Absolute Auto 1.5 K/mm3 (0.1-0.6); Monocytes Percent Auto 12.6 % (2.6-8.5); Neutrophils Absolute Auto 7.9 K/mm3 (1.3-6.7); Neutrophils Percent Auto 67.9 % (45.5-73.1); Platelet Count Result 296 k/mm3 (150-375); Red Blood Count 4.17 M/mm3 (4.2-5.4); Red Cell Distribution Width 12.9 % (11.5-14.5); White Blood Count 11.6 K/mm3 (4.5-10.0)
[2023-08-16 16:32] LABS: INR 1.8
[2023-08-16 16:33] LABS: Partial Thromboplastin Time 37.4 SECONDS (22.3-36.8)
[2023-08-16 16:34] LABS: Alanine Aminotransferase 16 U/L (6-35); Albumin Level 4.4 g/dL (3.5-5.1); Alkaline Phosphatase 60 U/L (38-126); Anion Gap 8 mmol/L (8-16); Aspartate Amino Transferase 34 U/L (14-36); Bilirubin,Total 0.6 mg/dL (0.2-1.3); Blood Urea Nitrogen 22 mg/dL (7-17); Calcium 9.5 mg/dL (8.4-10.2); Carbon Dioxide 28 mmol/L (22-30); Chloride 88 mmol/L (98-107); Estimated CRCL calculation 28 ml/min; Estimated Glomerular Filt Rate 43; Glucose 78 mg/dL (65-110); Potassium 3.8 mmol/L (3.4-5.0); Sodium 124 mmol/L (137-145)
[2023-08-16 16:41] LABS: Troponin I < 0.012 ng/mL (0.000-0.034)
--- NOTE | 2023-08-16 18:18 | ED.NEUROSD ---
HPI - Neuro Symptoms/Deficit General Chief Complaint: Neuro Symptoms/Deficit Stated Complaint: slurring words/disoriented Time Seen by Provider: 08/16/23 17:59 Source: family, RN notes reviewed and old records reviewed Mode of arrival: ambulatory History of Present Illness HPI Narrative: This is a 77 year old female with history of FL, CVA , hypertension who presents for evaluation of slurred speech and confusion. PAtient's daughter is at bedside. She states patient developed slurred speech in confusion when they were riding in a car around 3. She states this lasted 30 minutes. She called patient's herbicide sprayer and it was recommended for her to come to ER. She reports years ago patient had FL and 4 strokes in 1 week and her symptoms were symptoms. She reports patient does not have peripheral vision due to these previous CVA. She reports patient symptoms have resolved . PAtient reports 2 days ago she had lithotrypsy at [facility] for kidney stone. She had nausea and vomiting at that time. She denies fever, chills or vomiting today. She had history of hyponatremia. Her daughter states he was told that patient drank to much water. Related Data Home Medications Medication Instructions Recorded Confirmed aspirin 81 mg chewable tablet 81 mg PO DAILY 05/13/23 08/16/23 docusate sodium 100 mg capsule 100 mg PO DAILY PRN Constipation 05/13/23 08/16/23 insulin glargine 100 unit/mL (3 19 unit subcut QPM 05/13/23 08/16/23 mL) subcutaneous pen (Lantus Solostar U-100 Insulin) multivitamin-ferrous 1 tablet PO DAILY 05/13/23 08/16/23 fumarate-folic acid 18 mg-400 mcg tablet (Centrum Women) mvn-vit C 250 mg-B.coagulans 1 tablet PO DAILY 05/13/23 08/16/23 166.67 million cell-herb chewable tablet (Airborne Plus Probiotic) sitagliptin phosphate 100 mg 100 mg PO DAILY 05/13/23 08/16/23 tablet (Januvia) insulin aspart U-100 100 unit/mL 14 unit subcut BID 05/22/23 08/16/23 (3 mL) subcutaneous pen levothyroxine 100 mcg tablet 100 mcg PO DAILY 05/22/23 08/16/23 (Synthroid) pantoprazole 40 mg tablet,delayed 40 mg PO DAILY 05/22/23 08/16/23 release rivaroxaban 15 mg tablet (Xarelto) 15 mg PO DAILY 05/22/23 08/16/23 polyethylene glycol 3350 17 gram 17 g PO QAM PRN Constipation 08/16/23 08/16/23 oral powder packet (Miralax) Allergies Allergy/AdvReac Type Severity Reaction Status Date / Time atorvastatin [From Lipitor] Allergy Hives Verified 08/16/23 22:35 propoxyphene [From Darvon] Allergy Unknown Verified 08/16/23 22:35 Jdwkgpp-NAU-MiZ Reductase Allergy Hives Verified 08/16/23 22:35 Inhibitor glipizide AdvReac Dizziness Verified 08/16/23 22:35 metformin AdvReac Other Verified 08/16/23 22:35 Streptomyces Albus Allergy Hives Uncoded 06/08/23 12:29 Review of Systems Constitutional: Constitutional: Denies weakness Cardiovascular: Cardiovascular: Denies syncope, Denies rapid heart rate, Denies irregular heart rhythm, Denies leg edema and Denies dyspnea Respiratory: Respiratory: Denies chest congestion, Denies hemoptysis, Denies excessive phlegm production and Denies dyspnea Gastrointestinal: Gastrointestinal: Denies abdominal pain, Denies hematochezia, Denies diarrhea, Reports nausea and Reports vomiting Genitourinary: Genitourinary: Denies hematuria and Denies dysuria Musculoskeletal: Musculoskeletal: Denies joint swelling, Denies loss of height and Denies muscle weakness Neurologic: Denies syncope, Denies focal weakness and Denies weakness [facility] Past Medical History Medical History (Updated 08/16/23 @ 23:12 by Audra Medel MD) CVA (cerebral vascular accident) Hypertension Hypothyroidism Kidney stones Myocardial infarction Type 2 diabetes mellitus Surgical History Surgical History (Updated 08/16/23 @ 22:31 by Gia Banda APRN) H/O: hysterectomy History of bladder suspension procedure History of cataract surgery History of lithotripsy Hx of appendectomy Previous back surgery x2 S/P
[2023-08-16] MEDS: SODIUM CHLORIDE 0.9% IV 1,000 ML 999 ML IV CONT (18:29)
[2023-08-16 19:18] LABS: Appearance Urine Turbid (Clear); Blood Urine 3+ (Negative); Color Urine Red (Yellow); Glucose Urine UA Trace mg/dL (Negative); Leukocyte Esterase Ur 3+ LEU/UL (Negative); Nitrate Urine Negative (Negative); Protein Urine 3+ mg/dL (Negative); pH Urine 8.5 (5.0-9.0)
[2023-08-16 19:26] LABS: Add Urine Microscopic? YES; RBC Urine >100 /hpf (0-2); WBC Urine 51-100 /hpf (0-3)
[2023-08-16 19:27] LABS: Bacteria Urine 1+ /hpf; Squamous Epithelial Cell Urine None seen /hpf (Few)
--- NOTE | 2023-08-16 19:30 | PC.NURSE ---
Hospitalist PA at bedside to assess pt.
--- NOTE | 2023-08-16 19:41 | PM.IMHP ---
H&P: HPI History of Present Illness Date/Time: 08/16/23 19:41 Chief Complaint: Nausea, vomiting, transient confusion, lower abdominal pain Narrative: 77-year-old female presents here with transient confusion, slurred speech, lower abdominal pain, nausea and vomiting with past medical history of CT with subsequent CVA x4, kidney stones requiring lithotripsy and stenting, cardiac stent/CAD. Patient presents here with confusion and slurred speech that lasted approximately 30 minutes around noon. Patient was in the car with her daughter when symptoms started. Currently denying changes in speech, visual changes, focal weakness, changes in sensation. Patient recently had 3 kidney stones requiring lithotripsy and stenting on the left. Procedure was done on Sunday, 08/13. Since procedure she reports a decrease in appetite. Has been pushing hydration, drank a gallon of water last night and daughter reports that she will have 6-8 completed water bottles sitting out throughout the day recently. Woke up this morning and had 1 episode of nausea and vomiting. Described emesis as blackish/brown. Currently on Xarelto. Last bowel movement was today, brown, and denying dark tarry stool. Abdominal pain is around umbilicus and suprapubic. Reports urine output was red/brown today. Review of Systems Review of Systems: All systems reviewed & are unremarkable except as noted in HPI and below PMFSH Past Medical History Medical History (Updated 08/16/23 @ 23:12 by Audra Medel MD) CVA (cerebral vascular accident) Hypertension Hypothyroidism Kidney stones Myocardial infarction Type 2 diabetes mellitus Surgical History Surgical History (Updated 08/16/23 @ 22:31 by Gia Banda APRN) H/O: hysterectomy History of bladder suspension procedure History of cataract surgery History of lithotripsy Hx of appendectomy Previous back surgery x2 S/P oophorectomy Family History Family History Mother Angina concurrent with and due to arteriosclerosis of coronary artery Heart disease CAD (coronary artery disease) Sibling Heart disease CAD (coronary artery disease) Social History Social History (Updated 08/16/23 @ 22:32 by Gia Banda APRN) Social History: Currently lives at home alone. Daughter and granddaughter come by the house often to help. Surrogate decision maker: Gail Haas, daughter. Code Status: Full Code Smoking packs per day: 0.5 Smoking cigarettes per day: 10.0 Years smoked: 15 Smoking pack-years: 7.50 Smoking status: Former smoker Alcohol intake: former Substance use: never Substance use type: does not use Lack of Transportation: No Lack of Food: Never True Current Housing: I Have Housing Concerned About Future Housing: No Difficulty Paying Gas/Electric Bills: No Difficulty Paying for Meds: No Currently Unemployed: No Education: High School Diploma/GED Difficulty w/ Childcare or Family Care: No Living arrangements: alone Occupation/Education: retired Gender identity (if verbalized by the patient): Female Spiritual care concerns: No Meds Home Medications and Allergies Home Medications Medication Instructions Recorded Confirmed Type aspirin 81 mg chewable tablet 81 mg PO DAILY 05/13/23 08/16/23 History docusate sodium 100 mg capsule 100 mg PO DAILY PRN Constipation 05/13/23 08/16/23 History insulin glargine 100 unit/mL (3 19 unit subcut QPM 05/13/23 08/16/23 History mL) subcutaneous pen (Lantus Solostar U-100 Insulin) multivitamin-ferrous 1 tablet PO DAILY 05/13/23 08/16/23 History fumarate-folic acid 18 mg-400 mcg tablet (Centrum Women) mvn-vit C 250 mg-B.coagulans 1 tablet PO DAILY 05/13/23 08/16/23 History 166.67 million cell-herb chewable tablet (Airborne Plus Probiotic) sitagliptin phosphate 100 mg 100 mg PO DAILY 05/13/23 08/16/23 History tablet (Cleve
[2023-08-16] MEDS: SODIUM CHLORIDE 0.9% IV 1,000 ML 125 ML IV CONT (20:13)
--- NOTE | 2023-08-16 22:26 | ADMGEN ---
This patient, Francy Porter, was admitted to Medical Room 343-01. Patient/family oriented to hospital policies and general routines including ID bracelet, bed and alarms, visiting hours, pain management, procedures, bathroom and other care routines, personal items, smoking policy, room service/diet, and visiting hours. Information on how to activate the Rapid Response Team has been discussed. Patient/Family are encouraged to report perceived risks to care and to ask questions if they do not understand what they are told or what they should do.
[2023-08-16 23:19] LABS: Glucose Point of Care 94 mg/dl (65-105)
[2023-08-16] MEDS: INSULIN GLARGINE (*BKC) 100 UNITS/ML 19 UNITS SUB-Q (23:43)
[2023-08-17] VITALS (12 sets, daily range): BP systolic 152–174; BP diastolic 60–87; PULSE 46–67; RESP 18–21; TEMP 36.4–36.9; O2SAT 100
[2023-08-17 00:44] LABS: Procalcitonin 0.1 ng/mL
[2023-08-17 01:16] LABS: Troponin I 0.012 ng/mL (0.000-0.034)
[2023-08-17 05:39] LABS: Basophils Absolute Auto 0.1 K/mm3 (0.0-0.1); Basophils Percent Auto 0.6 % (0.2-1.2); Eosinophils Absolute Auto 0.1 K/mm3 (0-0.3); Eosinophils Percent Auto 1.6 % (0-4.4); Hematocrit 31.8 % (37.0-47.0); Hemoglobin 10.5 g/dL (12.0-15.0); Immature Granulocyte Absolute 0.02 K/mm3 (0.00-0.031); Immature Granulocyte Percent A 0.2 % (0-0.5); Lymphocytes Absolute Auto 1.54 K/mm3 (0.9-3.2); Lymphocytes Percent Auto 18.9 % (18.3-44.2); Mean Corpuscular Hemoglobin 28.6 pg (26-34); Mean Corpuscular Volume 86.6 fl (80-100); Mean Platelet Volume 9.4 fl (7.4-10.4); Monocytes Absolute Auto 1.1 K/mm3 (0.1-0.6); Monocytes Percent Auto 13.5 % (2.6-8.5); Neutrophils Absolute Auto 5.3 K/mm3 (1.3-6.7); Neutrophils Percent Auto 65.2 % (45.5-73.1); Platelet Count Result 237 k/mm3 (150-375); Red Blood Count 3.67 M/mm3 (4.2-5.4); White Blood Count 8.2 K/mm3 (4.5-10.0)
[2023-08-17] MEDS: LEVOTHYROXINE SODIUM 100 MCG TABLET PO (05:41)
[2023-08-17 05:52] LABS: Hemoglobin A1C 6.5 % (<5.7)
[2023-08-17 06:01] LABS: Alanine Aminotransferase 14 U/L (6-35); Albumin Level 3.5 g/dL (3.5-5.1); Alkaline Phosphatase 51 U/L (38-126); Anion Gap 5 mmol/L (8-16); Aspartate Amino Transferase 24 U/L (14-36); Bilirubin,Total 0.4 mg/dL (0.2-1.3); Blood Urea Nitrogen 18 mg/dL (7-17); Calcium 8.5 mg/dL (8.4-10.2); Carbon Dioxide 26 mmol/L (22-30); Chloride 95 mmol/L (98-107); Estimated CRCL calculation 37 ml/min; Estimated Glomerular Filt Rate 60; Glucose 110 mg/dL (65-110); Potassium 3.3 mmol/L (3.4-5.0); Sodium 126 mmol/L (137-145)
[2023-08-17 06:47] LABS: IFOB Positive Control Positive
[2023-08-17 07:09] LABS: Immunochemical Fecal Occult Bl Positive (N)
[2023-08-17] MEDS: METOPROLOL TARTRATE 50 MG TAB 100 MG PO (08:40)
[2023-08-17] MEDS: dilTIAZem HCL CD 120 MG CAP.24HR PO (08:40)
[2023-08-17] MEDS: levETIRAcetam 250 MG TABLET PO ×2 (08:40→20:49)
[2023-08-17] MEDS: MULTIVITAMINS /C LUTEIN (CENTRUM SILVER) TABLET *BKC 1 TAB PO (08:40)
[2023-08-17] MEDS: ROSUVASTATIN 10 MG TABLET 30 MG PO (08:40)
[2023-08-17] MEDS: PANTOPRAZOLE 40 MG TABLET PO (08:41)
[2023-08-17 09:17] LABS: Glucose Point of Care 153 mg/dl (65-105)
[2023-08-17] MEDS: INSULIN ASPART (*BKC) 100 UNITS/ML 14 UNITS SUB-Q ×2 (09:22→17:52)
[2023-08-17 10:02] LABS: Magnesium 2.4 mg/dL (1.6-2.3)
--- NOTE | 2023-08-17 10:42 | PM.IMPN ---
Progress Note: A&P Assessment and Plan (1) Transient confusion: Code(s): R41.0 - Disorientation, unspecified Status: Acute Assessment and Plan: 08/17: resolved confusion and slurred speech, MRI shows old strokes but no new (2) Hyponatremia: Code(s): E87.1 - Hypo-osmolality and hyponatremia Status: Acute Assessment and Plan: 08/17: 124 on admit, 128 this afternoon (3) Urinary tract infection: Code(s): N39.0 - Urinary tract infection, site not specified Status: Acute Assessment and Plan: 08/17: continue IV antibiotics pending urine culture (4) JULIUS (acute kidney injury): Code(s): N17.9 - Acute kidney failure, unspecified Status: Acute Assessment and Plan: 08/17: resolved with IV fluids (5) Type 2 diabetes mellitus: Qualifiers: Diabetes mellitus complication status: with other specified complication Diabetes mellitus detention insulin use: without detention use Qualified Code(s): E11.69 - Type 2 diabetes mellitus with other specified complication Code(s): E11.9 - Type 2 diabetes mellitus without complications Status: Acute Assessment and Plan: ACHS fingerstick glucose, home medications resumed on admission, sliding scale correction insulin (6) Positive occult stool blood test: Code(s): R19.5 - Other fecal abnormalities Status: Acute Assessment and Plan: Does not appear to be a florid GI bleed. Resume home medications and trend H&H. GI consulted, uncertain if she will be seen before Sunday. Patient will adamantly refuse colonoscopy per discussion I attempted to have with her earlier today. (7) Hematuria: Code(s): R31.9 - Hematuria, unspecified Status: Acute Assessment and Plan: Status post lithotripsy with left ureteral stent in place. Nonobstructing stones noted on renal ultrasound. Mild hydronephrosis noted bilaterally on renal ultrasound. Plan trend labs with focus on H&H and sodium patient requesting discharge home today. Spoke with her daughter who spoke with the patient about staying overnight for trending labs Time Spent With Patient Time with patient: Greater than 35 minutes Subjective Date/time seen: 08/17/23 10:42 Interval history: This is a 77-year-old female patient with history of prior CVAs who was experiencing slurred speech for about 30 minutes that has since gone away. She was admitted for TIA workup. MRI was negative. Patient feels back to baseline and states she wants to go home. Unfortunately, patient was found to have significant hyponatremia that she attributes to drinking more than a gal of water 2 nights ago he because she had lithotripsy and was told to drink plenty of water to flush the stone fragments through her urine. Patient has been having hematuria. She also noted explosive diarrhea. She was checked and found to be Hemoccult positive. Gastroenterology consult placed. Patient states that she will refuse a colonoscopy. Repeat CBC shows stable hemoglobin and hematocrit. Her BUN is not excessively elevated. Possible this was a urine contaminated stool specimen but unlikely a florid GI bleed. Patient is on blood thinners (Xarelto and clopidogrel) because of prior MS, prior strokes and atrial fibrillation. Per her daughter, patient no longer takes aspirin due to bleeding (hematuria.) We will monitor overnight recheck labs in the morning. Review of Systems Review of Systems: All systems reviewed & are unremarkable except as noted in HPI and below Exam Narrative: GENERAL: Generally well appearing, alert and oriented, in no apparent distress. She is pleasant and conversant in full sentences. HEENT: Pupils are equally round and briskly reactive to light. Extraocular muscles are intact. Oral mucous membranes are moist without lesions. NECK: The patient has no noted JVD. No adenopathy is appreciated. CHEST/LUNGS: Lungs are clear bilaterally wit
[2023-08-17 12:29] LABS: Glucose Point of Care 211 mg/dl (65-105)
[2023-08-17] MEDS: POTASSIUM CHLORIDE 20 MEQ ER TABLET 40 MEQ PO (12:39)
[2023-08-17] MEDS: INSULIN ASPART (*BKC) 100 UNITS/ML SUB-Q (12:39)
[2023-08-17 13:39] LABS: Hematocrit 33.4 % (37.0-47.0); Hemoglobin 10.9 g/dL (12.0-15.0); Mean Corpuscular HGB Conc 32.6 g/dl (32-36); Mean Corpuscular Hemoglobin 28.2 pg (26-34); Mean Corpuscular Volume 86.5 fl (80-100); Platelet Count Result 255 k/mm3 (150-375); Red Blood Count 3.86 M/mm3 (4.2-5.4); Red Cell Distribution Width 13.2 % (11.5-14.5)
[2023-08-17 13:49] LABS: Anion Gap 6 mmol/L (8-16); Blood Urea Nitrogen 16 mg/dL (7-17); Calcium 8.7 mg/dL (8.4-10.2); Carbon Dioxide 28 mmol/L (22-30); Chloride 94 mmol/L (98-107); Estimated CRCL calculation 41 ml/min; Estimated Glomerular Filt Rate > 60; Glucose 171 mg/dL (65-110); Potassium 3.3 mmol/L (3.4-5.0); Sodium 128 mmol/L (137-145)
[2023-08-17 17:57] LABS: Glucose Point of Care 128 mg/dl (65-105)
[2023-08-17] MEDS: SODIUM CHLORIDE 0.9% IV 1,000 ML 125 ML IV CONT (17:59)
[2023-08-17] MEDS: INSULIN GLARGINE (*BKC) 100 UNITS/ML 19 UNITS SUB-Q (20:50)
[2023-08-17 21:58] LABS: Glucose Point of Care 167 mg/dl (65-105)
[2023-08-18] VITALS (7 sets, daily range): BP systolic 150–190; BP diastolic 50–61; PULSE 47–64; RESP 18; TEMP 36.5; O2SAT 100
[2023-08-18] MEDS: SODIUM CHLORIDE 0.9% IV 1,000 ML 125 ML IV CONT (05:09)
[2023-08-18] MEDS: LEVOTHYROXINE SODIUM 100 MCG TABLET PO (05:32)
[2023-08-18 06:00] LABS: Basophils Absolute Auto 0.1 K/mm3 (0.0-0.1); Basophils Percent Auto 0.8 % (0.2-1.2); Eosinophils Absolute Auto 0.2 K/mm3 (0-0.3); Eosinophils Percent Auto 2.8 % (0-4.4); Hematocrit 32.4 % (37.0-47.0); Hemoglobin 10.6 g/dL (12.0-15.0); Immature Granulocyte Absolute 0.05 K/mm3 (0.00-0.031); Immature Granulocyte Percent A 0.6 % (0-0.5); Lymphocytes Absolute Auto 1.63 K/mm3 (0.9-3.2); Lymphocytes Percent Auto 20.8 % (18.3-44.2); Mean Corpuscular HGB Conc 32.7 g/dl (32-36); Mean Corpuscular Volume 88.5 fl (80-100); Mean Platelet Volume 9.4 fl (7.4-10.4); Monocytes Absolute Auto 0.8 K/mm3 (0.1-0.6); Monocytes Percent Auto 10.7 % (2.6-8.5); Neutrophils Absolute Auto 5.1 K/mm3 (1.3-6.7); Neutrophils Percent Auto 64.3 % (45.5-73.1); Platelet Count Result 261 k/mm3 (150-375); Red Blood Count 3.66 M/mm3 (4.2-5.4); Red Cell Distribution Width 13.1 % (11.5-14.5); White Blood Count 7.9 K/mm3 (4.5-10.0)
[2023-08-18 06:09] LABS: Alanine Aminotransferase 14 U/L (6-35); Albumin Level 3.7 g/dL (3.5-5.1); Alkaline Phosphatase 58 U/L (38-126); Anion Gap 6 mmol/L (8-16); Aspartate Amino Transferase 25 U/L (14-36); Bilirubin,Total 0.4 mg/dL (0.2-1.3); Blood Urea Nitrogen 14 mg/dL (7-17); Calcium 8.7 mg/dL (8.4-10.2); Carbon Dioxide 25 mmol/L (22-30); Chloride 99 mmol/L (98-107); Estimated CRCL calculation 46 ml/min; Estimated Glomerular Filt Rate > 60; Glucose 148 mg/dL (65-110); Magnesium 1.9 mg/dL (1.6-2.3); Potassium 3.7 mmol/L (3.4-5.0); Sodium 130 mmol/L (137-145)
[2023-08-18 08:28] LABS: Glucose Point of Care 165 mg/dl (65-105)
[2023-08-18] MEDS: CLOPIDOGREL BISULFATE 75 MG TABLET PO (08:50)
[2023-08-18] MEDS: METOPROLOL TARTRATE 50 MG TAB 100 MG PO (08:50)
[2023-08-18] MEDS: dilTIAZem HCL CD 120 MG CAP.24HR PO (08:50)
[2023-08-18] MEDS: levETIRAcetam 250 MG TABLET PO (08:50)
[2023-08-18] MEDS: MULTIVITAMINS /C LUTEIN (CENTRUM SILVER) TABLET *BKC 1 TAB PO (08:51)
[2023-08-18] MEDS: ROSUVASTATIN 10 MG TABLET 30 MG PO (08:51)
[2023-08-18] MEDS: PANTOPRAZOLE 40 MG TABLET PO (08:51)
[2023-08-18] MEDS: RIVAROXABAN 15 MG TABLET PO (08:51)
[2023-08-18] MEDS: INSULIN ASPART (*BKC) 100 UNITS/ML 14 UNITS SUB-Q (08:55)
--- NOTE | 2023-08-18 09:44 | PM.DS ---
DS: Admitting Diagnosis Discharge Date 08/18/2023 Admitting Diagnosis transient confusion, hyponatremia, UTI, JULIUS, type 2 diabetes mellitus DS: Discharge Diagnosis Discharge Diagnosis (1) Transient confusion: Code(s): R41.0 - Disorientation, unspecified Status: Acute Assessment and Plan: 08/17: resolved confusion and slurred speech, MRI shows old strokes but no new, possible TIA (2) Hyponatremia: Code(s): E87.1 - Hypo-osmolality and hyponatremia Status: Acute Assessment and Plan: 08/17: 124 on admit, 128 this afternoon 08/18: continues to improved to 130. Suspect this was related to water intoxication attempting to flush her kidneys as instructed by Urology. (3) Urinary tract infection: Code(s): N39.0 - Urinary tract infection, site not specified Status: Acute (4) JULIUS (acute kidney injury): Code(s): N17.9 - Acute kidney failure, unspecified Status: Acute Assessment and Plan: 08/17: resolved with IV fluids (5) Type 2 diabetes mellitus: Qualifiers: Diabetes mellitus complication status: with other specified complication Diabetes mellitus care home insulin use: without roasterman use Qualified Code(s): E11.69 - Type 2 diabetes mellitus with other specified complication Code(s): E11.9 - Type 2 diabetes mellitus without complications Status: Acute Assessment and Plan: ACHS fingerstick glucose, home medications resumed on admission, sliding scale correction insulin (6) Positive occult stool blood test: Code(s): R19.5 - Other fecal abnormalities Status: Acute Assessment and Plan: Does not appear to be a florid GI bleed. Resume home medications and trend H&H. GI consulted, uncertain if she will be seen before Sunday. Patient will adamantly refuse colonoscopy per discussion I attempted to have with her earlier today. Patient refusing to stay until Sunday. (7) Hematuria: Code(s): R31.9 - Hematuria, unspecified Status: Acute Assessment and Plan: Status post lithotripsy with left ureteral stent in place. Nonobstructing stones noted on renal ultrasound. Mild hydronephrosis noted bilaterally on renal ultrasound. Plan Laboratory findings stable, hyponatremia improving without over correcting. Discharge with cefdinir. It appears urine culture was never sent from initial UA but patient denies fever or chills or dysuria, states hematuria is also improving. DS: Summary Hospital Course Reason for hospitalization: Patient was admitted for TIA symptoms found to have hyponatremia and possible UTI Hospital Course: Patient was admitted for TIA symptoms, MRI was negative for new area of stroke. She is on Plavix and Xarelto due to atrial fibrillation and prior PR/ stroke. Patient reports hematuria chronic but worsened acutely after lithotripsy for left ureteral stone removal. This procedure was done 2 days prior to admission. Patient has indwelling left ureteral stent. Patient initially felt much better yesterday and was wanting to go home. However, she had positive fecal occult blood. Patient was kept overnight for monitoring hemoglobin hematocrit and to assess for further GI bleeding. Gastroenterology not on-call this weekend and patient would adamantly refuse EGD and colonoscopy at this time. As labs have states stable and he hyponatremia has improved we will discharge patient home on cefdinir for possible urine infection, urine culture was never started. Patient is to follow-up with her urologist for stent removal next week. Patient instructed on signs of GI bleed and reasons to return to the hospital. Status at Discharge Cognitive/behavioral status at discharge: Awake alert oriented and pleasant Functional status at discharge: independent ambulation Overall status at discharge: patient is back to baseline Time Spent with Patient Time attestation: Total time spent providing and/or coordinating
[2023-08-18 12:19] LABS: Glucose Point of Care 196 mg/dl (65-105)
== END 2023-08-18 14:15 | disposition home or self-care (01) ==
LOC: ANHED 18:36 → ANH3MED 08-17 00:31 → ANH3MEDSUR 08-20 12:12
PROVIDERS: Nurse Practitioner; Student in an Organized Health Care Education/Training Program; Admitting Provider Internal Medicine; Emergency Provider General Practice; PCP Physician Assistant; Visit Provider Internal Medicine
DX: R41.0 Disorientation, unspecified (principal); E87.1 Hypo-osmolality and hyponatremia; N39.0 Urinary tract infection, site not specified; N17.9 Acute kidney failure, unspecified; E11.69 Type 2 diabetes mellitus with other specified complication; R19.5 Other fecal abnormalities; R31.9 Hematuria, unspecified; I25.2 Old myocardial infarction; N13.2 Hydronephrosis with renal and ureteral calculous obstruction; I10 Essential (primary) hypertension; K59.00 Constipation, unspecified; E03.9 Hypothyroidism, unspecified; I25.10 Atherosclerotic heart disease of native coronary artery without angina pectoris; Z95.5 Presence of coronary angioplasty implant and graft; R63.0 Anorexia; R11.2 Nausea with vomiting, unspecified; Z68.26 Body mass index [BMI] 26.0-26.9, adult; K44.9 Diaphragmatic hernia without obstruction or gangrene; R94.31 Abnormal electrocardiogram [ECG] [EKG]; Z87.891 Personal history of nicotine dependence; Z86.73 Personal history of transient ischemic attack (TIA), and cerebral infarction without residual deficits; Z87.898 Personal history of other specified conditions; Z79.82 Long term (current) use of aspirin; Z79.4 Long term (current) use of insulin; Z79.84 Long term (current) use of oral hypoglycemic drugs; Z79.01 Long term (current) use of anticoagulants; Z79.899 Other long term (current) drug therapy
CPT/HCPCS: 36415; 70450; 70553; 71045; 76775; 80048; 80053; 81001; 82274; 82948; 83036; 83735; 84145; 84443; 84484; 85025; 85027; 85610; 85730; 93005; 96361; 96365; 99285; A9270; A9577; G0378; J0696; J1815; J7030

== ENCOUNTER 2023-10-01 12:23 | Inpatient (IN) | payer MEDICARE, OTHER, SELFPAY ==
[2023-10-01] VITALS (34 sets, daily range): BP systolic 160–210; BP diastolic 44–104; PULSE 38–53; RESP 11–24; TEMP 36.5–36.8; O2SAT 98–100
--- NOTE | ~2023-10-01 | XR_ITS ---
XR chest 1V portable 10/01/2023 23:05 Indication: Cough. Sinus drainage. Procedure: AP portable chest Comparison: 08/16/2023 Findings: Heart size normal. No focal air space disease, pulmonary edema, pleural effusion or suspect ed pneumothorax. Impression: 1: No acute cardiopulmonary disease. Reviewed, dictated and finalized at [facility] GUN Impression: 1: No acute cardiopulmonary disease.
--- NOTE | ~2023-10-01 | CT_ITS ---
EXAMINATION: CT brain wo con DATE: 10/01/2023 13:56 INDICATION: Syncope. TECHNIQUE: Computed tomography (CT) of the head was performed without intravenous contrast. The mA wa s adjusted according to patient size. Iterative reconstruction technique was employed. The dose-lengt h product was 605.33 mGy-cm. COMPARISON: Head CT 08/16/2023, brain MRI 08/17/2023 FINDINGS: There is an old infarct in right temporal lobe. There is an old infarct in right temporal o ccipital region. There is an old infarct in the left basal ganglia. There is an old infarct in medial left temporal lobe. There are scattered areas of low attenuation in the cerebral white matter, which is within normal limits for the patient's age. There is no intracranial hemorrhage, acute infarction , or abnormal intracranial mass lesion. There is ex vacuo dilatation of trigone of right lateral vent ricle. There are old fracture deformities of left zygomaticomaxillary complex. There are likely lyons es of ocular lens replacement surgeries. The mastoid air cells are normal. IMPRESSION: 1. Old infarcts in the right. Reviewed, dictated and finalized at location [facility]
--- NOTE | 2023-10-01 12:45 | ECG_ITS ---
Measurements Intervals [place] Rate: 51 P: 69 NV: 265 QRS: 21 QRSD: 117 T: 43 QT: 464 QTc: 430 Interpretive Statements SINUS BRADYCARDIA WITH FIRST DEGREE AV BLOCK INCOMPLETE LEFT BUNDLE BRANCH BLOCK LEFT VENTRICULAR HYPERTROPHY WITH ST-T CHANGE CONSIDER INFERIOR INFARCT, AGE INDETERMINATE BASELINE ARTIFACT- I, II, AVR, AVL, AVF, V6 ABNORMAL ECG COMPARED TO ECG 08/16/2023 15:45:19 INCOMPLETE LEFT BUNDLE BRANCH BLOCK NOW PRESENT Electronically Signed On 10-01-2023 14:14:35 COMPUTER BOOKKEEPER by Nicola Nur D.O.
--- NOTE | 2023-10-01 12:48 | ED.WEAKNESS ---
HPI - Weakness General Chief complaint: Weakness Stated complaint: fever, lethargy Time Seen by Provider: 10/01/23 12:40 History of Present Illness HPI Narrative: Patient is a 77 year old female with history of a. fib, CAD, stroke here with low grade fever and weakness. Daughter at bedside helps with history. She states that for the last few days her mom has seemed to have less energy and not quite acting herself. This morning she went over to check on her and she was hard to arouse. She notes that she passed out couple of times on her arrival and she was worried because she was unable to keep her awake. This prompted her to be brought into the emergency department. Currently she is behaving her normal self. Patient notes that she has had just some generalized fatigue, a hacking cough which has been present for an unknown period of time. She also notes some recurrent nose bleeds. She denies any diarrhea or abdominal pain. No chest pain. She was recently admitted for TIA symptoms with a negative MRI. She had lithotripsy last month and had a left ureteral stent placed, which was removed about a week after discharge. She just finished antibiotics for UTI a couple of weeks ago. Related Data Home Medications Medication Instructions Recorded Confirmed docusate sodium 100 mg capsule 100 mg PO DAILY PRN Constipation 05/13/23 08/16/23 insulin glargine 100 unit/mL (3 19 unit subcut QPM 05/13/23 08/16/23 mL) subcutaneous pen (Lantus Solostar U-100 Insulin) multivitamin-ferrous 1 tablet PO DAILY 05/13/23 08/16/23 fumarate-folic acid 18 mg-400 mcg tablet (Centrum Women) mvn-vit C 250 mg-B.coagulans 1 tablet PO DAILY 05/13/23 08/16/23 166.67 million cell-herb chewable tablet (Airborne Plus Probiotic) sitagliptin phosphate 100 mg 100 mg PO DAILY 05/13/23 08/16/23 tablet (Januvia) insulin aspart U-100 100 unit/mL 14 unit subcut BID 05/22/23 08/16/23 (3 mL) subcutaneous pen levothyroxine 100 mcg tablet 100 mcg PO DAILY 05/22/23 08/16/23 (Synthroid) pantoprazole 40 mg tablet,delayed 40 mg PO DAILY 05/22/23 08/16/23 release rivaroxaban 15 mg tablet (Xarelto) 15 mg PO DAILY 05/22/23 08/16/23 polyethylene glycol 3350 17 gram 17 g PO QAM PRN Constipation 08/16/23 08/16/23 oral powder packet (Miralax) Allergies Allergy/AdvReac Type Severity Reaction Status Date / Time atorvastatin [From Lipitor] Allergy Hives Verified 10/01/23 12:36 propoxyphene [From Darvon] Allergy Unknown Verified 10/01/23 12:36 glipizide AdvReac Dizziness Verified 10/01/23 12:36 metformin AdvReac Other Verified 10/01/23 12:36 Streptomyces Albus Allergy Hives Uncoded 10/01/23 12:36 Review of Systems Review of Systems: All systems reviewed & are unremarkable except as noted in HPI and below PMFSH Past Medical History Medical History (Updated 10/01/23 @ 17:05 by Gracie Pepper MD) CVA (cerebral vascular accident) Hypertension Hypothyroidism Kidney stones Myocardial infarction Type 2 diabetes mellitus Surgical History Surgical History (Updated 08/16/23 @ 22:31 by Gia Banda APRN) H/O: hysterectomy History of bladder suspension procedure History of cataract surgery History of lithotripsy Hx of appendectomy Previous back surgery x2 S/P oophorectomy Family History Family History Mother Angina concurrent with and due to arteriosclerosis of coronary artery Heart disease CAD (coronary artery disease) Sibling Heart disease CAD (coronary artery disease) Social History Social History (Updated 08/16/23 @ 22:32 by Gia Banda APRN) Social History: Currently lives at home alone. Daughter and granddaughter come by the house often to help. Surrogate decision maker: Gail Haas, daughter. Code Status: Full Code Smoking packs per day: 0.5 Smoking cigarettes per day: 10.0 Years smoked: 15 Smoking pack-years: 7.50 Smoking status: For
[2023-10-01] MEDS: SODIUM CHLORIDE 0.9% IV 1,000 ML 999 ML IV CONT (13:02)
[2023-10-01 13:23] LABS: Basophils Absolute Auto 0.1 K/mm3 (0.0-0.1); Basophils Percent Auto 0.5 % (0.2-1.2); Eosinophils Absolute Auto 0.1 K/mm3 (0-0.3); Eosinophils Percent Auto 0.9 % (0-4.4); Hematocrit 35.3 % (37.0-47.0); Hemoglobin 12.1 g/dL (12.0-15.0); Immature Granulocyte Absolute 0.04 K/mm3 (0.00-0.031); Immature Granulocyte Percent A 0.4 % (0-0.5); Lymphocytes Absolute Auto 2.05 K/mm3 (0.9-3.2); Lymphocytes Percent Auto 20.6 % (18.3-44.2); Mean Corpuscular HGB Conc 34.3 g/dl (32-36); Mean Corpuscular Hemoglobin 27.9 pg (26-34); Mean Corpuscular Volume 81.3 fl (80-100); Mean Platelet Volume 9.3 fl (7.4-10.4); Monocytes Absolute Auto 1.2 K/mm3 (0.1-0.6); Neutrophils Absolute Auto 6.5 K/mm3 (1.3-6.7); Neutrophils Percent Auto 65.6 % (45.5-73.1); Platelet Count Result 343 k/mm3 (150-375); Red Blood Count 4.34 M/mm3 (4.2-5.4); Red Cell Distribution Width 13.5 % (11.5-14.5)
[2023-10-01 13:27] LABS: Appearance Urine Clear (Clear); Bacteria Urine 3+ /hpf; Bilirubin Urine Negative (Negative); Blood Urine Negative (Negative); Color Urine Yellow (Yellow); Glucose Urine UA Trace mg/dL (Negative); Ketones Urine Negative (Negative); Leukocyte Esterase Ur Negative LEU/UL (Negative); Nitrate Urine Negative (Negative); Non Pathogenic Casts 0-2; Protein Urine 1+ mg/dL (Negative); RBC Urine 0-2 /hpf (0-2); Specific Grav Ur 1.007 (1.001-1.035); Squamous Epithelial Cell Urine None seen /hpf (Few); Urobilinogen Urine 0.2 mg/dL (<2.0); WBC Urine 0-5 /hpf
[2023-10-01 13:33] LABS: INR 1.5; Prothrombin Time 18.5 Seconds (11.1-14.7)
[2023-10-01 13:34] LABS: Alanine Aminotransferase 14 U/L (6-35); Albumin Level 4.4 g/dL (3.5-5.1); Alkaline Phosphatase 57 U/L (38-126); Anion Gap 13 mmol/L (8-16); Aspartate Amino Transferase 26 U/L (14-36); Bilirubin,Total 0.7 mg/dL (0.2-1.3); Blood Urea Nitrogen 12 mg/dL (7-17); Calcium 9.1 mg/dL (8.4-10.2); Carbon Dioxide 22 mmol/L (22-30); Chloride 89 mmol/L (98-107); Estimated CRCL calculation 62 ml/min; Estimated Glomerular Filt Rate > 60; Glucose 139 mg/dL (65-110); Partial Thromboplastin Time 33.1 SECONDS (22.3-36.8); Potassium 3.1 mmol/L (3.4-5.0); Sodium 124 mmol/L (137-145)
[2023-10-01 13:39] LABS: CRP < 0.5 mg/dL (<1.0)
[2023-10-01 13:42] LABS: Add Urine Microscopic? NO
[2023-10-01 13:49] LABS: Troponin I < 0.012 ng/mL (0.000-0.034)
[2023-10-01 16:28] LABS: Troponin I 0.015 ng/mL (0.000-0.034)
[2023-10-01] MEDS: POTASSIUM BICARBONATE 25 MEQ TABEF 50 MEQ PO (17:25)
--- NOTE | 2023-10-01 18:16 | ADMGEN ---
This patient, Francy Porter, was admitted to 3 [facility] Surg Room 312-01. Patient/family oriented to hospital policies and general routines including ID bracelet, bed and alarms, visiting hours, pain management, procedures, bathroom and other care routines, personal items, smoking policy, room service/diet, and visiting hours. Information on how to activate the Rapid Response Team has been discussed. Patient/Family are encouraged to report perceived risks to care and to ask questions if they do not understand what they are told or what they should do.
--- NOTE | 2023-10-01 21:10 | PM.IMHP ---
H&P: HPI History of Present Illness Date/Time: 10/01/23 20:00 Chief Complaint: Weakness and confusion. Narrative: This is a pleasant 77-year-old female with history of stroke, possible seizure on levetiracetam, coronary artery disease with history of [place], insulin-dependent type 2 diabetes mellitus, hypertension, chronic hyponatremia, and hypothyroidism who presented to the emergency department via EMS from home for evaluation of weakness and confusion. The patient provides the following history. She is known to the hospitalist service from a hospitalization a little over 1 month ago at which time she was treated for hyponatremia and urinary tract infection after presenting with transient confusion. Hyponatremia was felt to be due to over-hydration. She has been cutting back on the number of bottled whyte that she drinks today and has been supplementing them with electrolyte drinks and root beer though she does continue to drink water as well. She does not think she is drinking as much water as she was last month however. In any regard, her granddaughter visited Sunday and she thought the patient was not completely acting like herself. Yesterday the patient reports that she felt ?woozy all day? but she did not have any other specific complaints. This morning she got up and got ready as her daughter was coming to take her in to town to run errands however she was feeling weak and lightheaded so she told her daughter not to come and she sat down on her recliner to rest. Daughter came to check on her and found the patent in her recliner, reportedly unresponsive. The patient was ultimately arousable but confused. She apparently had episodes were she was in an out of his so she was brought in for evaluation. Reportedly she had a low-grade fever on EMS arrival and with further questioning she endorses a dry, hacking cough, and dry heaves earlier today. She denies sick contacts, headache, neck ache, sinus congestion, sore throat, chest pain, pleuritic pain, shortness a breath, vomiting, diarrhea, and dysuria. No focal weakness, paresthesias, facial droop, or difficulty speaking or swallowing. There were no reports of seizure activity and she denies tongue bite and incontinence. She was afebrile on arrival to the emergency department. She has isolated systolic hypertension with blood pressures in the 180s to 190s. Pulse has been in the upper 30s to mid 40s since arrival. Labs were significant for a sodium of 124, potassium 3.1, chloride 89, BUN 0.60, lactic acid 1.0, troponin less than 0.012, CRP less than 0.5. Brain CT showed old infarcts. She is being admitted in this setting for further treatment and evaluation. Review of Systems Review of Systems: Twelve systems were reviewed and are negative except for as per HPI. [facility] Past Medical History Medical History CVA (cerebral vascular accident) Hypertension Hypothyroidism Kidney stones Myocardial infarction Type 2 diabetes mellitus Surgical History Surgical History H/O: hysterectomy History of bladder suspension procedure History of cataract surgery History of lithotripsy Hx of appendectomy Previous back surgery x2 S/P oophorectomy Family History Family History Mother Angina concurrent with and due to arteriosclerosis of coronary artery Heart disease CAD (coronary artery disease) Sibling Heart disease CAD (coronary artery disease) Social History Social History Social History: Currently lives at home alone. Daughter and granddaughter come by the house often to help. Surrogate decision maker: Gail Haas, daughter. Code Status: Full Code Smoking packs per day: 0.5 Smoking cigarettes per day: 10.0 Years smoked: 15 Smoking pack-years: 7.50
[2023-10-01 21:12] LABS: Creatinine Urine 38.2 mg/dL; Sodium Urine Random 46 meq/L
[2023-10-01 21:15] LABS: Anion Gap 13 mmol/L (8-16); Blood Urea Nitrogen 12 mg/dL (7-17); Calcium 9.3 mg/dL (8.4-10.2); Carbon Dioxide 20 mmol/L (22-30); Chloride 93 mmol/L (98-107); Estimated CRCL calculation 62 ml/min; Estimated Glomerular Filt Rate > 60; Glucose 145 mg/dL (65-110); Magnesium 1.9 mg/dL (1.6-2.3); Potassium 4.3 mmol/L (3.4-5.0); Sodium 126 mmol/L (137-145)
[2023-10-01 21:26] LABS: Troponin I 0.012 ng/mL (0.000-0.034)
[2023-10-01] MEDS: levETIRAcetam 250 MG TABLET PO (22:45)
[2023-10-01 22:52] LABS: Glucose Point of Care 142 mg/dl (65-105)
[2023-10-01 23:31] LABS: Influenza A QL RT-PCR Negative (Negative); Influenza B QL RT-PCR Negative (Negative); RSV RNA, RT-PCR Negative (Negative); SARS-CoV-2 RNA PCR Negative (Negative)
[2023-10-02] VITALS (12 sets, daily range): BP systolic 135–166; BP diastolic 50–94; PULSE 43–143; RESP 14–20; TEMP 36.8–37.1; O2SAT 96–100
[2023-10-02] MEDS: SODIUM CHLORIDE 0.9% IV 1,000 ML 75 ML IV CONT (00:34)
[2023-10-02] MEDS: LEVOTHYROXINE SODIUM 100 MCG TABLET PO (06:27)
[2023-10-02 07:58] LABS: Glucose Point of Care 176 mg/dl (65-105)
[2023-10-02 08:06] LABS: Hematocrit 34.5 % (37.0-47.0); Hemoglobin 11.6 g/dL (12.0-15.0); Mean Corpuscular HGB Conc 33.6 g/dl (32-36); Mean Corpuscular Hemoglobin 28.2 pg (26-34); Mean Corpuscular Volume 83.7 fl (80-100); Mean Platelet Volume 9.2 fl (7.4-10.4); Platelet Count Result 329 k/mm3 (150-375); Red Blood Count 4.12 M/mm3 (4.2-5.4); Red Cell Distribution Width 13.8 % (11.5-14.5); White Blood Count 9.5 K/mm3 (4.5-10.0)
[2023-10-02 08:20] LABS: Anion Gap 11 mmol/L (8-16); Blood Urea Nitrogen 11 mg/dL (7-17); Calcium 9.1 mg/dL (8.4-10.2); Carbon Dioxide 22 mmol/L (22-30); Chloride 93 mmol/L (98-107); Estimated CRCL calculation 62 ml/min; Estimated Glomerular Filt Rate > 60; Glucose 172 mg/dL (65-110); Potassium 3.8 mmol/L (3.4-5.0); Sodium 126 mmol/L (137-145)
[2023-10-02] MEDS: MULTIVITAMINS /C LUTEIN (CENTRUM SILVER) TABLET *BKC 1 TAB PO (08:32)
[2023-10-02] MEDS: dilTIAZem HCL CD 120 MG CAP.24HR PO (08:33)
[2023-10-02] MEDS: RIVAROXABAN 15 MG TABLET PO (08:34)
[2023-10-02] MEDS: CLOPIDOGREL BISULFATE 75 MG TABLET PO (08:34)
[2023-10-02] MEDS: levETIRAcetam 250 MG TABLET PO ×2 (08:35→20:47)
[2023-10-02] MEDS: ROSUVASTATIN 10 MG TABLET 30 MG PO (08:35)
[2023-10-02] MEDS: PANTOPRAZOLE 40 MG TABLET PO (08:36)
[2023-10-02] MEDS: METOPROLOL TARTRATE 25 MG TABLET PO (10:14)
--- NOTE | 2023-10-02 10:46 | ECG_ITS ---
Measurements Intervals [place] Rate: 76 P: 64 TN: 255 QRS: 5 QRSD: 108 T: -36 QT: 413 QTc: 466 Interpretive Statements SINUS RHYTHM WITH FIRST DEGREE AV BLOCK VENTRICULAR PREMATURE COMPLEX LEFT VENTRICULAR HYPERTROPHY WITH ST-T CHANGE INFERIOR INFARCT, AGE INDETERMINATE ABNORMAL ECG COMPARED TO ECG 10/01/2023 12:34:52 SINUS RHYTHM NOW PRESENT Electronically Signed On 10-02-2023 11:47:40 ROBOTIC WELDER by Nicola Nur D.O.
[2023-10-02] MEDS: INSULIN ASPART (*BKC) 100 UNITS/ML SUB-Q ×2 (12:13→20:47)
[2023-10-02 12:28] LABS: Glucose Point of Care 246 mg/dl (65-105)
--- NOTE | 2023-10-02 13:00 | PM.IMPN ---
Progress Note: A&P Assessment and Plan (1) Unresponsive episode: Code(s): R40.4 - Transient alteration of awareness Status: Acute Assessment and Plan: possibly related to infection vs. hyponatremia vs. BP elevation previously had a normal EEG however remains on Keppra neurologic checks Q4 hours UA positive for bacteria, start on Rocephin pending UA culture Brain CT did not show any acute findings BC pending (2) Hyponatremia: Code(s): E87.1 - Hypo-osmolality and hyponatremia Status: Chronic Assessment and Plan: chronic on acute urine sodium 46, will check cortisol random with labs in am for now, 2L fluid restriction as this may be SIADH consider consult to nephrology d/c IVF, up to 126 from 124 from admission continue to monitor (3) Type 2 diabetes mellitus: Qualifiers: Diabetes mellitus complication status: with other specified complication Diabetes mellitus lobsterman insulin use: without skilled nursing use Qualified Code(s): E11.69 - Type 2 diabetes mellitus with other specified complication Code(s): E11.9 - Type 2 diabetes mellitus without complications Status: Acute Assessment and Plan: home insulin, AccuCheck and hypoglycemic protocol (4) Tachycardia: Code(s): R00.0 - Tachycardia, unspecified Status: Acute Assessment and Plan: new onset this morning sustained in 140s, bradycardic on admission Repeat EKG 10/02 showed no changes from admission cardiology consulted restart home metoprolol and continue diltiazem monitor closely TSH w/ reflex ordered Plan Subjective Date/time seen: 10/02/23 13:00 Interval history: Patient is a 77 YO female with PMH of stroke, unconfirmed seizure on levetiracetam, CAD with history of [place], insulin-dependent type 2 diabetes mellitus, hypertension, chronic hyponatremia, and hypothyroidism admitted from the emergency department for evaluation of weakness and confusion. She is known to the hospitalist service from a hospitalization a little over 1 month ago at which time she was treated for hyponatremia and urinary tract infection after presenting with transient confusion. Hyponatremia was felt to be due to over-hydration. She has been cutting back on the number of bottled whyte that she drinks today and has been supplementing them with electrolyte drinks and root beer though she does continue to drink water as well. She does not think she is drinking as much water as she was last month however. Yesterday the patient reports that she felt ?woozy all day? but she did not have any other specific complaints. She denies sick contacts, headache, neck ache, sinus congestion, sore throat, chest pain, pleuritic pain, shortness a breath, vomiting, diarrhea, and dysuria. No focal weakness, paresthesias, facial droop, or difficulty speaking or swallowing. There were no reports of seizure activity and she denies tongue bite and incontinence. Labs on admission were significant for a sodium of 124, potassium 3.1, chloride 89, BUN 0.60, lactic acid 1.0, troponin less than 0.012, CRP less than 0.5. Brain CT showed old infarcts. This morning she is alert and oriented, speaking in full sentences and without acute distress. She was sitting up eating breakfast without complaint of pain, dizziness or confusion, but does endorse that she does not remember what happened yesterday. UA was positive for bacteria, will start on Rocephin while culture is pending. I was called back to the bedside after my initial examination this morning when the patient began sustaining her HR in the 140s after getting up to the bathroom. She was feeling palpitations, but denies chest pain and is not dyspneic with speech. She is quite emotional today, feeling depressed and unsure if she wants to go on. Reassurance given, may need care coordination consult and discussed possibly considering a care home for social interaction. Metoprolol r
[2023-10-02] MEDS: SODIUM CHLORIDE 0.9% IV 1,000 ML 100 ML IV CONT (13:33)
--- NOTE | 2023-10-02 15:21 | PM.CNCAR ---
Assessment and Plan Assessment and plan (1) Tachycardia: Code(s): R00.0 - Tachycardia, unspecified Status: Acute Assessment and Plan: Tele this morning shows what appears to be SVT. Has known paroxysmal atrial fibrillation. Currently in normal sinus rhythm. Continue tele monitoring for now. Continue Metoprolol 100mg BID. Will increase Diltiazem 120mg to 180mg. Discharge home with a 14 day monitor (order placed). (2) Acute hyponatremia: Code(s): E87.1 - Hypo-osmolality and hyponatremia Status: Acute Assessment and Plan: Management and workup as per primary team (3) Transient confusion: Code(s): R41.0 - Disorientation, unspecified Status: Acute Assessment and Plan: Management and workup as per primary team (4) Coronary artery disease: Code(s): I25.10 - Atherosclerotic heart disease of [place] coronary artery without angina pectoris Status: Acute Assessment and Plan: Stable. Continue Plavix and statin. (5) Atrial fibrillation: Code(s): I48.91 - Unspecified atrial fibrillation Status: Acute Assessment and Plan: Beta romeo and Diltiazem as noted above. Continue Xarelto. History of Present Illness History of Present Illness Consult date/time: 10/02/23 15:21 Requesting physician: Ana M Zepeda APRN Consult reason: Other (Tachycardia) Reason For Visit: Hyponatremia/Weakness/Bradycardia Narrative: We are consulted for tachycardia. This is a 77 year old female with coronary artery disease with STEMI in May 2023 s/p PCI to the LAD, paroxysmal atrial fibrillation, CVA, diabetes who presented to [facility] with weakness, confusion. Daughter is at bedside who provides additional history. On Sunday, patient's other daughter found her to be confused and sleepy. This was noted again on day of admission by the daughter present in the room. Daughter states that she went to patient's house and she was unresponsive, she would open her eyes when she called her mom's name, but would fall back asleep quickly. Patient was admitted to the hospital in August 2023 for hyponatremia and UTI after presenting with transient confusion. She has been noted to be hypertensive this admission. This morning, patient is awake and alert and conversive, not confused. She reports feeling tired. She was noted to be tachycardic this morning. Patient reports having palpitations at home occasionally. Review of Systems Review of Systems: No chest pain, shortness of breath. + Palpitations. + Weakness PMFSH Past Medical History Medical History CVA (cerebral vascular accident) Hypertension Hypothyroidism Kidney stones Myocardial infarction Type 2 diabetes mellitus Surgical History Surgical History H/O: hysterectomy History of bladder suspension procedure History of cataract surgery History of lithotripsy Hx of appendectomy Previous back surgery x2 S/P oophorectomy Family History Family History Mother Angina concurrent with and due to arteriosclerosis of coronary artery Heart disease CAD (coronary artery disease) Sibling Heart disease CAD (coronary artery disease) Social History Social History Social History: Currently lives at home alone. Daughter and granddaughter come by the house often to help. Surrogate decision maker: Gail Riosbookerluc, daughter. Code Status: Full Code Smoking packs per day: 0.5 Smoking cigarettes per day: 10.0 Years smoked: 15 Smoking pack-years: 7.50 Smoking status: Former smoker Alcohol intake: never Substance use: never Substance use type: does not use Lack of Transportation: No Lack of Food: Never True Current Housing: I Have Housing Concerned About Future Housing: No
[2023-10-02 17:32] LABS: Glucose Point of Care 120 mg/dl (65-105)
[2023-10-02] MEDS: INSULIN GLARGINE (*BKC) 100 UNITS/ML 19 UNITS SUB-Q (17:49)
[2023-10-02 20:30] LABS: Glucose Point of Care 253 mg/dl (65-105)
[2023-10-02] MEDS: METOPROLOL TARTRATE 50 MG TAB 100 MG PO (20:47)
[2023-10-03] VITALS (13 sets, daily range): BP systolic 141–157; BP diastolic 40–72; PULSE 36–55; RESP 14–16; TEMP 36.3–37.4; O2SAT 97–100
[2023-10-03] MEDS: LEVOTHYROXINE SODIUM 100 MCG TABLET PO (05:45)
[2023-10-03 06:16] LABS: Hematocrit 33.2 % (37.0-47.0); Hemoglobin 10.7 g/dL (12.0-15.0); Mean Corpuscular HGB Conc 32.2 g/dl (32-36); Mean Corpuscular Hemoglobin 27.4 pg (26-34); Mean Corpuscular Volume 85.1 fl (80-100); Mean Platelet Volume 9.7 fl (7.4-10.4); Platelet Count Result 315 k/mm3 (150-375); Red Cell Distribution Width 14.2 % (11.5-14.5); White Blood Count 8.3 K/mm3 (4.5-10.0)
[2023-10-03 06:24] LABS: Anion Gap 9 mmol/L (8-16); Blood Urea Nitrogen 15 mg/dL (7-17); Carbon Dioxide 25 mmol/L (22-30); Chloride 95 mmol/L (98-107); Estimated CRCL calculation 39 ml/min; Estimated Glomerular Filt Rate 53; Glucose 146 mg/dL (65-110); Potassium 3.4 mmol/L (3.4-5.0); Sodium 129 mmol/L (137-145)
[2023-10-03 08:00] LABS: Glucose Point of Care 133 mg/dl (65-105)
[2023-10-03] MEDS: MULTIVITAMINS /C LUTEIN (CENTRUM SILVER) TABLET *BKC 1 TAB PO (08:45)
[2023-10-03] MEDS: RIVAROXABAN 15 MG TABLET PO (08:46)
[2023-10-03] MEDS: ROSUVASTATIN 10 MG TABLET 30 MG PO (08:46)
[2023-10-03] MEDS: CLOPIDOGREL BISULFATE 75 MG TABLET PO (08:46)
[2023-10-03] MEDS: PANTOPRAZOLE 40 MG TABLET PO (08:46)
[2023-10-03] MEDS: levETIRAcetam 250 MG TABLET PO ×2 (08:46→20:09)
[2023-10-03] MEDS: METOPROLOL TARTRATE 50 MG TAB 100 MG PO (09:47)
[2023-10-03] MEDS: dilTIAZem HCL CD 180 MG CAP.24HR PO (09:48)
--- NOTE | 2023-10-03 10:01 | P.PNIM_ITS ---
Progress Note: A&P Assessment and Plan (1) Unresponsive episode: Code(s): R40.4 - Transient alteration of awareness Status: Acute Assessment and Plan: 10/02/23: * possibly related to infection vs. hyponatremia vs. BP elevation * previously had a normal EEG however remains on Keppra * neurologic checks Q4 hours * UA positive for bacteria, start on Rocephin pending UA culture * Brain CT did not show any acute findings * BC pending 10/03/23: * Possibly due to hyponatremia versus urinary tract infection versus blood pressure elevation * Patient is alert oriented x3. She did have 1 bout of confusion through the night. * Continue neuro checks q.4 hours * Urine cultures pending * Blood culture showing no growth (2) Hyponatremia: Code(s): E87.1 - Hypo-osmolality and hyponatremia Status: Chronic Assessment and Plan: 10/02/23: * chronic on acute * urine sodium 46, will check cortisol random with labs in am * for now, 2L fluid restriction as this may be SIADH * consider consult to nephrology * d/c IVF, up to 126 from 124 from admission * continue to monitor 10/03/23: * Sodium level 129 today * Continue fluid restriction * Urine osmolarity and serum osmolarity pending * Will get Nephrology on board for management of electrolyte imbalance (3) Type 2 diabetes mellitus: Qualifiers: Diabetes mellitus complication status: with other specified complication Diabetes mellitus intermediate insulin use: without intermediate use Qualified Code(s): E11.69 - Type 2 diabetes mellitus with other specified complication Code(s): E11.9 - Type 2 diabetes mellitus without complications Status: Acute Assessment and Plan: 10/02/23: * home insulin, AccuCheck and hypoglycemic protocol 10/03/23: * Blood sugars ranging 133-146 * Continue with current treatment plan (4) Tachycardia: Code(s): R00.0 - Tachycardia, unspecified Status: Acute Assessment and Plan: 10/02/23: * new onset this morning sustained in 140s, bradycardic on admission * Repeat EKG 10/02 showed no changes from admission * cardiology consulted * restart home metoprolol and continue diltiazem * monitor closely * TSH w/ reflex ordered 10/03/23: * Currently bradycardic in the 40's * Cardiology on board and is following * Patient currently on metoprolol 100 mg b.i.d. and diltiazem 180 mg * TSH 1.990, PTH 281.3 Plan Time Spent With Patient Time with patient: Greater than 35 minutes Subjective Date/time seen: 10/03/23 10:01 Interval history: This is a 77 year old female who presented to the hospital on 10/01/23 with complaints of weakness and confusion. 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 Labs revealed Na+ 124, K+ 3.1, Chloride 89, BUN 12, Creatinine 0.60, Lactic acid 1.0, liver enzymes normal, troponin negative x3. UA shown 1+ protein, trace glucose, 3+ bacteria. Urine sodium 46, Urine creatinine 38.2, Urine osmolarity and serum osmolarity pending. Patient was placed on a fluid restriction. She was started on Rocephin for UTI coverage. Cardiology was consulted for SVT in the 140's on 10/02/23. They increased her Cardizem to 180mg and continued Metoprolol 100mg BID as she has a history of paroxysmal A-fib. She will need a halter monitor for 14 days upon discharge. On examination today patient is alert oriented x3, lying in the bed. HR ranging 38-54, she is afebrile, blood pressures ranging 135/50-141/40, currently on
--- NOTE | 2023-10-03 10:01 | PM.IMPN ---
Progress Note: A&P Assessment and Plan (1) Unresponsive episode: Code(s): R40.4 - Transient alteration of awareness Status: Acute Assessment and Plan: 10/02/23: possibly related to infection vs. hyponatremia vs. BP elevation previously had a normal EEG however remains on Keppra neurologic checks Q4 hours UA positive for bacteria, start on Rocephin pending UA culture Brain CT did not show any acute findings BC pending 10/03/23: Possibly due to hyponatremia versus urinary tract infection versus blood pressure elevation Patient is alert oriented x3. She did have 1 bout of confusion through the night. Continue neuro checks q.4 hours Urine cultures pending Blood culture showing no growth (2) Hyponatremia: Code(s): E87.1 - Hypo-osmolality and hyponatremia Status: Chronic Assessment and Plan: 10/02/23: chronic on acute urine sodium 46, will check cortisol random with labs in am for now, 2L fluid restriction as this may be SIADH consider consult to nephrology d/c IVF, up to 126 from 124 from admission continue to monitor 10/03/23: Sodium level 129 today Continue fluid restriction Urine osmolarity and serum osmolarity pending Will get Nephrology on board for management of electrolyte imbalance (3) Type 2 diabetes mellitus: Qualifiers: Diabetes mellitus complication status: with other specified complication Diabetes mellitus intermodal dispatcher insulin use: without snf use Qualified Code(s): E11.69 - Type 2 diabetes mellitus with other specified complication Code(s): E11.9 - Type 2 diabetes mellitus without complications Status: Acute Assessment and Plan: 10/02/23: home insulin, AccuCheck and hypoglycemic protocol 10/03/23: Blood sugars ranging 133-146 Continue with current treatment plan (4) Tachycardia: Code(s): R00.0 - Tachycardia, unspecified Status: Acute Assessment and Plan: 10/02/23: new onset this morning sustained in 140s, bradycardic on admission Repeat EKG 10/02 showed no changes from admission cardiology consulted restart home metoprolol and continue diltiazem monitor closely TSH w/ reflex ordered 10/03/23: Currently bradycardic in the 40's Cardiology on board and is following Patient currently on metoprolol 100 mg b.i.d. and diltiazem 180 mg TSH 1.990, PTH 281.3 Plan Time Spent With Patient Time with patient: Greater than 35 minutes Subjective Date/time seen: 10/03/23 10:01 Interval history: This is a 77 year old female who presented to the hospital on 10/01/23 with complaints of weakness and confusion. 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 Labs revealed Na+ 124, K+ 3.1, Chloride 89, BUN 12, Creatinine 0.60, Lactic acid 1.0, liver enzymes normal, troponin negative x3. UA shown 1+ protein, trace glucose, 3+ bacteria. Urine sodium 46, Urine creatinine 38.2, Urine osmolarity and serum osmolarity pending. Patient was placed on a fluid restriction. She was started on Rocephin for UTI coverage. Cardiology was consulted for SVT in the 140's on 10/02/23. They increased her Cardizem to 180mg and continued Metoprolol 100mg BID as she has a history of paroxysmal A-fib. She will need a halter monitor for 14 days upon discharge. On examination today patient is alert oriented x3, lying in the bed. HR ranging 38-54, she is afebrile, blood pressures ranging 135/50-141/40, currently on room air. She denies any pain or discomfort at this time. Daughter is at the bedside. Patient denies any nausea, vomiting, diarrhea, abdominal pain, shortness of breath, chest pain, fever, chills, headache. Labs today reveal WBC 8.3, Hgb 10.7, Hct 33.2, Na+ 129, K+ 3.4, Chloride 95, BUN 15, Creatinine 1.00, BG ranging 133-146, random cortisol 17.10. Blood cultures showing no growth, urine culture pending. Continue
[2023-10-03 11:55] LABS: Glucose Point of Care 211 mg/dl (65-105)
[2023-10-03] MEDS: INSULIN ASPART (*BKC) 100 UNITS/ML SUB-Q (12:57)
--- NOTE | 2023-10-03 13:54 | PM.PNCARD ---
Progress Note: A&P Assessment and Plan (1) Tachycardia: Code(s): R00.0 - Tachycardia, unspecified Status: Acute Assessment and Plan: Tele shows what appears to be SVT. Has known paroxysmal atrial fibrillation. Currently in normal sinus rhythm. Continue tele monitoring for now. Continue Metoprolol 100mg BID. Diltiazem increased from 120mg to 180mg. Discharge home with a 14 day monitor (order placed). (2) Acute hyponatremia: Code(s): E87.1 - Hypo-osmolality and hyponatremia Status: Acute Assessment and Plan: Management and workup as per primary team (3) Transient confusion: Code(s): R41.0 - Disorientation, unspecified Status: Acute Assessment and Plan: Management and workup as per primary team (4) Coronary artery disease: Code(s): I25.10 - Atherosclerotic heart disease of [place]al[place] coronary artery without angina pectoris Status: Acute Assessment and Plan: Stable. Continue Plavix and statin. (5) Atrial fibrillation: Code(s): I48.91 - Unspecified atrial fibrillation Status: Acute Assessment and Plan: Beta romeo and Diltiazem as noted above. Continue Xarelto Subjective Date/time seen: 10/03/23 13:54 Interval history: Reason for visit: Tachycardia HPI: We are consulted for tachycardia. This is a 77 year old female with coronary artery disease with STEMI in May 2023 s/p PCI to the LAD, paroxysmal atrial fibrillation, CVA, diabetes who presented to [facility] with weakness, confusion. Daughter is at bedside who provides additional history. On Sunday, patient's other daughter found her to be confused and sleepy. This was noted again on day of admission by the daughter present in the room. Daughter states that she went to patient's house and she was unresponsive, she would open her eyes when she called her mom's name, but would fall back asleep quickly. Patient was admitted to the hospital in August 2023 for hyponatremia and UTI after presenting with transient confusion. She has been noted to be hypertensive this admission. This morning, patient is awake and alert and conversive, not confused. She reports feeling tired. She was noted to be tachycardic this morning. Patient reports having palpitations at home occasionally. Date of service 10/03: Awake, alert, sitting up at bedside eating lunch. Tele showed some SVT earlier today -- patient denies any palpitations tonight. Reports sleeping soundly overnight, although she states that when she woke up, she thought she was at home. Had some lightheadedness when standing up and walking to the bathroom. Review of Systems Review of Systems: No chest pain, palpitations, shortness of breath Exam Const: General: no acute distress HENMT: Mouth: Yes dry mucous membranes Eyes: General: appearance normal, both eyes and all related structures Sclera: sclerae normal Resp: Effort & Inspection: normal respiratory effort Cardio: Rate: bradycardic Rhythm: regular rhythm Skin: General skin exam: normal color Neuro: Speech: normal speech Psych: Mental Status: mental status grossly normal Affect: normal affect Objective Data Vital Signs Vital Signs: Vital Signs - 24 hr 10/02/23 16:00 10/02/23 14:00 10/02/23 20:47 Temperature 37.1 C Pulse Rate 56 L 58 L 60 Respiratory Rate 14 Blood Pressure 147/57 H Pulse Oximetry 100 Oxygen Delivery 10/02/23 21:08 10/02/23 20:00 10/03/23 00:00 Temperature 36.8 C Pulse Rate 51 L 43 L 38 L Respiratory Rate 18 Blood Pressure 135/50 L Pulse Oximetry 96 Oxygen Delivery 10/03/23 04:43 10/03/23 04:00 10/03/23 09:47 Temperature 36.8 C Pulse Rate 54 L 53 L 53 L Respiratory Rate 16 Blood Pressure 141/40 H Pulse Oximetry 100 Oxygen Delivery 10/03/23 13:52 Temperature Pulse Rate Respiratory Rate Blood Pressure Pulse Oximetry 97 Oxygen Delivery Room Air Intake/Output Intake/Output
[2023-10-03 16:47] LABS: Glucose Point of Care 116 mg/dl (65-105)
[2023-10-03] MEDS: INSULIN GLARGINE (*BKC) 100 UNITS/ML 19 UNITS SUB-Q (17:38)
[2023-10-03 22:29] LABS: Glucose Point of Care 161 mg/dl (65-105)
[2023-10-04] VITALS (11 sets, daily range): BP systolic 131–157; BP diastolic 57–76; PULSE 39–96; RESP 16–20; TEMP 36.1–36.9; O2SAT 99–100
[2023-10-04] MEDS: LEVOTHYROXINE SODIUM 100 MCG TABLET PO (05:20)
[2023-10-04 06:09] LABS: Basophils Absolute Auto 0.1 K/mm3 (0.0-0.1); Basophils Percent Auto 0.7 % (0.2-1.2); Eosinophils Absolute Auto 0.1 K/mm3 (0-0.3); Eosinophils Percent Auto 1.2 % (0-4.4); Hematocrit 31.3 % (37.0-47.0); Hemoglobin 10.4 g/dL (12.0-15.0); Immature Granulocyte Absolute 0.04 K/mm3 (0.00-0.031); Immature Granulocyte Percent A 0.4 % (0-0.5); Lymphocytes Absolute Auto 1.83 K/mm3 (0.9-3.2); Lymphocytes Percent Auto 18.4 % (18.3-44.2); Mean Corpuscular HGB Conc 33.2 g/dl (32-36); Mean Corpuscular Volume 84.1 fl (80-100); Mean Platelet Volume 9.5 fl (7.4-10.4); Monocytes Absolute Auto 0.9 K/mm3 (0.1-0.6); Monocytes Percent Auto 9.2 % (2.6-8.5); Neutrophils Percent Auto 70.1 % (45.5-73.1); Platelet Count Result 310 k/mm3 (150-375); Red Blood Count 3.72 M/mm3 (4.2-5.4); White Blood Count 9.9 K/mm3 (4.5-10.0)
[2023-10-04 06:15] LABS: Alanine Aminotransferase 14 U/L (6-35); Albumin Level 3.7 g/dL (3.5-5.1); Alkaline Phosphatase 59 U/L (38-126); Anion Gap 8 mmol/L (8-16); Aspartate Amino Transferase 23 U/L (14-36); Bilirubin,Total 0.5 mg/dL (0.2-1.3); Blood Urea Nitrogen 15 mg/dL (7-17); Calcium 8.9 mg/dL (8.4-10.2); Carbon Dioxide 25 mmol/L (22-30); Chloride 94 mmol/L (98-107); Estimated CRCL calculation 43 ml/min; Estimated Glomerular Filt Rate 60; Glucose 144 mg/dL (65-110); Potassium 3.5 mmol/L (3.4-5.0); Sodium 127 mmol/L (137-145)
[2023-10-04 07:38] LABS: Glucose Point of Care 132 mg/dl (65-105)
[2023-10-04] MEDS: ROSUVASTATIN 10 MG TABLET 30 MG PO (08:35)
[2023-10-04] MEDS: METOPROLOL TARTRATE 50 MG TAB 100 MG PO ×2 (08:36→21:39)
[2023-10-04] MEDS: MULTIVITAMINS /C LUTEIN (CENTRUM SILVER) TABLET *BKC 1 TAB PO (08:36)
[2023-10-04] MEDS: PANTOPRAZOLE 40 MG TABLET PO (08:36)
[2023-10-04] MEDS: dilTIAZem HCL CD 180 MG CAP.24HR PO (08:36)
[2023-10-04] MEDS: levETIRAcetam 250 MG TABLET PO ×2 (08:36→21:39)
[2023-10-04] MEDS: RIVAROXABAN 15 MG TABLET PO (08:36)
[2023-10-04] MEDS: CLOPIDOGREL BISULFATE 75 MG TABLET PO (08:36)
--- NOTE | 2023-10-04 08:53 | ECG_ITS ---
Measurements Intervals [place] Rate: 115 P: SC: 0 QRS: 17 QRSD: 111 T: -75 QT: 322 QTc: 447 Interpretive Statements ATRIAL FIBRILLATION WITH RAPID VENTRICULAR RESPONSE VENTRICULAR PREMATURE COMPLEX INCOMPLETE LEFT BUNDLE BRANCH BLOCK CONSIDER INFERIOR INFARCT, AGE INDETERMINATE BORDERLINE ST-T WAVE ABNORMALITY- ANTEROLAT/HIGH LAT LEADS BASELINE WANDER- I, II, III, AVL, AVF ABNORMAL ECG COMPARED TO ECG 10/02/2023 11:02:55 ATRIAL FIBRILLATION NOW PRESENT Electronically Signed On 10-04-2023 9:25:25 [employer]IL [employer] by Nicola Nur D.O.
--- NOTE | 2023-10-04 08:58 | P.PNIM_ITS ---
Progress Note: A&P Assessment and Plan (1) Unresponsive episode: Code(s): R40.4 - Transient alteration of awareness Status: Acute Assessment and Plan: 10/02/23: * possibly related to infection vs. hyponatremia vs. BP elevation * previously had a normal EEG however remains on Keppra * neurologic checks Q4 hours * UA positive for bacteria, start on Rocephin pending UA culture * Brain CT did not show any acute findings * BC pending 10/03/23: * Possibly due to hyponatremia versus urinary tract infection versus blood pressure elevation * Patient is alert oriented x3. She did have 1 bout of confusion through the night. * Continue neuro checks q.4 hours * Urine cultures pending * Blood culture showing no growth 10/04/23: * Na+ 127 today * Urine culture showing enterococcus species on preliminary * Blood cultures showing no growth to date * Continue neuro checks. (2) Hyponatremia: Code(s): E87.1 - Hypo-osmolality and hyponatremia Status: Chronic Assessment and Plan: 10/02/23: * chronic on acute * urine sodium 46, will check cortisol random with labs in am * for now, 2L fluid restriction as this may be SIADH * consider consult to nephrology * d/c IVF, up to 126 from 124 from admission * continue to monitor 10/03/23: * Sodium level 129 today * Continue fluid restriction * Urine osmolarity and serum osmolarity pending * Will get Nephrology on board for management of electrolyte imbalance 10/04/23: * Na+ level 127 today * Continue with 2L fluid restriction * Urine Na+ 46, Urine creatinine 38.2 * Urine osmolarity and serum osmolarity pending. * Nephrology consulted for continued management of hyponatremia which could pote ntially be SIADH or cerebral salt wasting syndrome post stroke. (3) Type 2 diabetes mellitus: Qualifiers: Diabetes mellitus complication status: with other specified complication Diabetes mellitus termite control technician insulin use: without termite control technician use Qualified Code(s): E11.69 - Type 2 diabetes mellitus with other specified complication Code(s): E11.9 - Type 2 diabetes mellitus without complications Status: Acute Assessment and Plan: 10/02/23: * home insulin, AccuCheck and hypoglycemic protocol 10/03/23: * Blood sugars ranging 133-146 * Continue with current treatment plan (4) Tachycardia: Code(s): R00.0 - Tachycardia, unspecified Status: Acute Assessment and Plan: 10/02/23: * new onset this morning sustained in 140s, bradycardic on admission * Repeat EKG 10/02 showed no changes from admission * cardiology consulted * restart home metoprolol and continue diltiazem * monitor closely * TSH w/ reflex ordered 10/03/23: * Currently bradycardic in the 40's * Cardiology on board and is following * Patient currently on metoprolol 100 mg b.i.d. and diltiazem 180 mg * TSH 1.990, PTH 281.3 Plan Time Spent With Patient Time with patient: 25 - 35 minutes Subjective Date/time seen: 10/04/23 08:58 Interval history: 10/03/23: This is a 77 year old female who presented to the hospital on 10/01/23 with complaints of weakness and confusion. 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 Labs revealed Na+ 124, K+ 3.1, Chloride 89, BUN 12, Creatinine 0.60, Lactic acid 1.0, liver enzymes normal, troponin negative x3. UA shown 1+ protein, trace glucose, 3+ bacteria. Urine sodium 46, Urine creatinine 38.2, Urine osmola
--- NOTE | 2023-10-04 08:58 | PM.IMPN ---
Progress Note: A&P Assessment and Plan (1) Unresponsive episode: Code(s): R40.4 - Transient alteration of awareness Status: Acute Assessment and Plan: 10/02/23: possibly related to infection vs. hyponatremia vs. BP elevation previously had a normal EEG however remains on Keppra neurologic checks Q4 hours UA positive for bacteria, start on Rocephin pending UA culture Brain CT did not show any acute findings BC pending 10/03/23: Possibly due to hyponatremia versus urinary tract infection versus blood pressure elevation Patient is alert oriented x3. She did have 1 bout of confusion through the night. Continue neuro checks q.4 hours Urine cultures pending Blood culture showing no growth 10/04/23: Na+ 127 today Urine culture showing enterococcus species on preliminary Blood cultures showing no growth to date Continue neuro checks. (2) Hyponatremia: Code(s): E87.1 - Hypo-osmolality and hyponatremia Status: Chronic Assessment and Plan: 10/02/23: chronic on acute urine sodium 46, will check cortisol random with labs in am for now, 2L fluid restriction as this may be SIADH consider consult to nephrology d/c IVF, up to 126 from 124 from admission continue to monitor 10/03/23: Sodium level 129 today Continue fluid restriction Urine osmolarity and serum osmolarity pending Will get Nephrology on board for management of electrolyte imbalance 10/04/23: Na+ level 127 today Continue with 2L fluid restriction Urine Na+ 46, Urine creatinine 38.2 Urine osmolarity and serum osmolarity pending. Nephrology consulted for continued management of hyponatremia which could potentially be SIADH or cerebral salt wasting syndrome post stroke. (3) Type 2 diabetes mellitus: Qualifiers: Diabetes mellitus complication status: with other specified complication Diabetes mellitus superintendent terminal insulin use: without superintendent terminal use Qualified Code(s): E11.69 - Type 2 diabetes mellitus with other specified complication Code(s): E11.9 - Type 2 diabetes mellitus without complications Status: Acute Assessment and Plan: 10/02/23: home insulin, AccuCheck and hypoglycemic protocol 10/03/23: Blood sugars ranging 133-146 Continue with current treatment plan (4) Tachycardia: Code(s): R00.0 - Tachycardia, unspecified Status: Acute Assessment and Plan: 10/02/23: new onset this morning sustained in 140s, bradycardic on admission Repeat EKG 10/02 showed no changes from admission cardiology consulted restart home metoprolol and continue diltiazem monitor closely TSH w/ reflex ordered 10/03/23: Currently bradycardic in the 40's Cardiology on board and is following Patient currently on metoprolol 100 mg b.i.d. and diltiazem 180 mg TSH 1.990, PTH 281.3 Plan Time Spent With Patient Time with patient: 25 - 35 minutes Subjective Date/time seen: 10/04/23 08:58 Interval history: 10/03/23: This is a 77 year old female who presented to the hospital on 10/01/23 with complaints of weakness and confusion. 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 Labs revealed Na+ 124, K+ 3.1, Chloride 89, BUN 12, Creatinine 0.60, Lactic acid 1.0, liver enzymes normal, troponin negative x3. UA shown 1+ protein, trace glucose, 3+ bacteria. Urine sodium 46, Urine creatinine 38.2, Urine osmolarity and serum osmolarity pending. Patient was placed on a fluid restriction. She was started on Rocephin for UTI coverage. Cardiology was consulted for SVT in the 140's on 10/02/23. They increased her Cardizem to 180mg and continued Metoprolol 100mg BID as she has a history of paroxysmal A-fib. She will need a halter monitor for 14 days upon discharge. On examination today patient is alert oriented x3, lying in the bed. HR ranging 38-54, she is afebrile, blood pressu
[2023-10-04 11:34] LABS: Glucose Point of Care 238 mg/dl (65-105)
[2023-10-04] MEDS: INSULIN ASPART (*BKC) 100 UNITS/ML SUB-Q (12:13)
[2023-10-04] MEDS: AMOXICILLIN 500 MG CAPSULE PO ×2 (12:27→21:40)
--- NOTE | 2023-10-04 14:30 | PM.CNNEP ---
Assessment and Plan Assessment and plan (1) Hyponatremia: Code(s): E87.1 - Hypo-osmolality and hyponatremia Status: Chronic Assessment and Plan: acute on chronic has been presen since at least 2020 sodium seems to fluctuate anywhere from 124 - 136mmol/L etiology no clear but appears asymptomatic evaluation to date: TSH okay cortisol acceptable urine electrolytes non-prerenal serum/urine osmo + SPEP/UPEP pending already on fluid restriction could consider salt tabs if necessary follow trend of repeat sodium levels (2) Urinary tract infection: Code(s): N39.0 - Urinary tract infection, site not specified Status: Acute Assessment and Plan: UA noted urine culture positive on antibiotics await final organism identification (3) Tachycardia: Code(s): R00.0 - Tachycardia, unspecified Status: Acute Assessment and Plan: Cardiology following known history of atrial fibrillation element of DVT on metoprolol and diltiazem 14-day monitor on discharge (4) Atrial fibrillation: Code(s): I48.91 - Unspecified atrial fibrillation Status: Acute Assessment and Plan: rate control strategy on anticoagulation (5) Type 2 diabetes mellitus: Qualifiers: Diabetes mellitus complication status: with other specified complication 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 Thank you for allowing me to participate in the care of this patient. History of Present Illness Reason for Consult Consult date: 10/04/23 Reason for consult: hyponatremia Chief Complaint Chief complaint: Hyponatremia/Weakness/Bradycardia History of Present Illness Narrative: The patient is a 77-year-old female with a past medical history as outlined below who presented to [facility] Emergency room for further evaluation weakness and confusion. Apparently, her granddaughter visited the patient a few days ago and thought that she was not completely acting like herself but she was not completely sure. Then, the day before admission, the patient reported that she felt woozy and throughout the day but did not have any other specific complaints. The morning of admission, she reported that she got up and she felt quite weak and lightheaded. Her daughter came to visit her and found the patient reportedly unresponsive. Eventually, she was able to get the patient aroused but she seemed quite confused by that point in time. Her daughter called 911 and EMS was summoned and she was subsequently transferred to the emergency room for further assessment. Workup and evaluation emergency room demonstrated the patient to be hemodynamically stable and without fever although she was somewhat hypertensive in the 180s to 190 systolic. Her heart rate has been fluctuating where from 30 to 40 since arrival. Routine blood tests were significant for hyponatremia with a sodium 124, hypokalemia with a potassium of 3.1, normal renal function normal lactic acid, and normal troponin. CT scan of the brain was significant for old CVA/infarctions. Given the constellation of symptoms as mentioned above and her laboratory findings, she was admitted the hospital for further evaluation and therapy. Since her admission, her overall mentation seems to have improved if not return to baseline. Her sodium level seems to be gradually improving with current interventions and it appears that she also has a urinary tract infection by testing to date. Cardiology has seen the patient with regard t
[2023-10-04 16:32] LABS: Glucose Point of Care 160 mg/dl (65-105)
[2023-10-04] MEDS: INSULIN GLARGINE (*BKC) 100 UNITS/ML 19 UNITS SUB-Q (17:59)
[2023-10-04 19:41] LABS: Osmolality, Urine 210 mOsm/kg (50-1200)
[2023-10-04 20:33] LABS: Glucose Point of Care 188 mg/dl (65-105)
[2023-10-05] VITALS (11 sets, daily range): BP systolic 126–140; BP diastolic 44–70; PULSE 49–103; RESP 14–16; TEMP 36.4–36.8; O2SAT 100
[2023-10-05] MEDS: LEVOTHYROXINE SODIUM 100 MCG TABLET PO (06:36)
[2023-10-05] MEDS: AMOXICILLIN 500 MG CAPSULE PO ×3 (06:36→20:57)
[2023-10-05 06:57] LABS: Basophils Absolute Auto 0.1 K/mm3 (0.0-0.1); Basophils Percent Auto 0.7 % (0.2-1.2); Eosinophils Absolute Auto 0.1 K/mm3 (0-0.3); Hematocrit 34.4 % (37.0-47.0); Hemoglobin 11.3 g/dL (12.0-15.0); Immature Granulocyte Absolute 0.03 K/mm3 (0.00-0.031); Immature Granulocyte Percent A 0.3 % (0-0.5); Lymphocytes Absolute Auto 1.61 K/mm3 (0.9-3.2); Lymphocytes Percent Auto 15.3 % (18.3-44.2); Mean Corpuscular HGB Conc 32.8 g/dl (32-36); Mean Corpuscular Hemoglobin 28.1 pg (26-34); Mean Corpuscular Volume 85.6 fl (80-100); Mean Platelet Volume 9.3 fl (7.4-10.4); Monocytes Absolute Auto 0.9 K/mm3 (0.1-0.6); Monocytes Percent Auto 8.6 % (2.6-8.5); Neutrophils Absolute Auto 7.8 K/mm3 (1.3-6.7); Neutrophils Percent Auto 74.1 % (45.5-73.1); Platelet Count Result 332 k/mm3 (150-375); Red Blood Count 4.02 M/mm3 (4.2-5.4); Red Cell Distribution Width 14.2 % (11.5-14.5); White Blood Count 10.5 K/mm3 (4.5-10.0)
[2023-10-05 07:15] LABS: Alanine Aminotransferase 16 U/L (6-35); Albumin Level 3.9 g/dL (3.5-5.1); Alkaline Phosphatase 60 U/L (38-126); Anion Gap 10 mmol/L (8-16); Aspartate Amino Transferase 26 U/L (14-36); Bilirubin,Total 0.4 mg/dL (0.2-1.3); Blood Urea Nitrogen 13 mg/dL (7-17); Calcium 8.8 mg/dL (8.4-10.2); Carbon Dioxide 24 mmol/L (22-30); Chloride 96 mmol/L (98-107); Estimated CRCL calculation 54 ml/min; Estimated Glomerular Filt Rate > 60; Glucose 137 mg/dL (65-110); Potassium 3.5 mmol/L (3.4-5.0); Sodium 130 mmol/L (137-145)
[2023-10-05 08:23] LABS: Glucose Point of Care 159 mg/dl (65-105)
[2023-10-05] MEDS: dilTIAZem HCL CD 180 MG CAP.24HR PO (09:25)
[2023-10-05] MEDS: PANTOPRAZOLE 40 MG TABLET PO (09:25)
[2023-10-05] MEDS: RIVAROXABAN 15 MG TABLET PO (09:25)
[2023-10-05] MEDS: levETIRAcetam 250 MG TABLET PO ×2 (09:25→20:56)
[2023-10-05] MEDS: polyethylene glycoL 3350 17 GM POWD.PACK PO (09:25)
[2023-10-05] MEDS: METOPROLOL TARTRATE 50 MG TAB 100 MG PO (09:25)
[2023-10-05] MEDS: ROSUVASTATIN 10 MG TABLET 30 MG PO (09:25)
[2023-10-05] MEDS: MULTIVITAMINS /C LUTEIN (CENTRUM SILVER) TABLET *BKC 1 TAB PO (09:26)
[2023-10-05] MEDS: DOCUSATE SODIUM 100 MG CAPSULE PO (09:26)
[2023-10-05] MEDS: CLOPIDOGREL BISULFATE 75 MG TABLET PO (09:26)
--- NOTE | 2023-10-05 09:48 | P.PNIM_ITS ---
Progress Note: A&P Assessment and Plan (1) Unresponsive episode: Code(s): R40.4 - Transient alteration of awareness Status: Acute Assessment and Plan: 10/02/23: * possibly related to infection vs. hyponatremia vs. BP elevation * previously had a normal EEG however remains on Keppra * neurologic checks Q4 hours * UA positive for bacteria, start on Rocephin pending UA culture * Brain CT did not show any acute findings * BC pending 10/03/23: * Possibly due to hyponatremia versus urinary tract infection versus blood pressure elevation * Patient is alert oriented x3. She did have 1 bout of confusion through the night. * Continue neuro checks q.4 hours * Urine cultures pending * Blood culture showing no growth 10/04/23: * Na+ 127 today * Urine culture showing enterococcus species on preliminary * Blood cultures showing no growth to date * Continue neuro checks. 10/05/23: * Remains alert and oriented x4 * Na+ 130 today * Urine culture showing enterococcus species on final report, patient started on Amoxicillin oral yesterday * Blood cultures still showing no growth * Continue neuro checks. (2) Hyponatremia: Code(s): E87.1 - Hypo-osmolality and hyponatremia Status: Chronic Assessment and Plan: 10/02/23: * chronic on acute * urine sodium 46, will check cortisol random with labs in am * for now, 2L fluid restriction as this may be SIADH * consider consult to nephrology * d/c IVF, up to 126 from 124 from admission * continue to monitor 10/03/23: * Sodium level 129 today * Continue fluid restriction * Urine osmolarity and serum osmolarity pending * Will get Nephrology on board for management of electrolyte imbalance 10/04/23: * Na+ level 127 today * Continue with 2L fluid restriction * Urine Na+ 46, Urine creatinine 38.2 * Urine osmolarity and serum osmolarity pending. * Nephrology consulted for continued management of hyponatremia which could potentially be SIADH or cerebral salt wasting syndrome post stroke. 10/05/23: * Na+ 130 today * Continue with 2L fluid restriction * Urine Na+ 46, Urine creatinine 38.2, Urine osmolarity 210, serum osmolarity 270. * Nephrology seen and following, sodium level has been chronically low likely due to multiple co-morbidities and her recent CVA insulting it further. * [place]/Lambda light chain and protein electrophoresis routine results pending (3) Type 2 diabetes mellitus: Qualifiers: Diabetes mellitus complication status: with other specified complication Diabetes mellitus long-term insulin use: without ocean transportation intermediary use Qualified Code(s): E11.69 - Type 2 diabetes mellitus with other specified complication Code(s): E11.9 - Type 2 diabetes mellitus without complications Status: Acute Assessment and Plan: 10/02/23: * home insulin, AccuCheck and hypoglycemic protocol 10/03/23: * Blood sugars ranging 133-146 * Continue with current treatment plan 10/05/23: * No change to current treatment plan (4) Tachycardia: Code(s): R00.0 - Tachycardia, unspecified Status: Acute Assessment and Plan: 10/02/23: * new onset this morning sustained in 140s, bradycardic on admission * Repeat EKG 10/02 showed no changes from admission * cardiology consulted * restart home metoprolol and continue diltiazem * monitor closely * TSH w/ reflex ordered 10/03/23: * Currently bradycardic in the 40's * Cardiology on board and is following * Patient currently on metoprolol 100 mg b.i.d. a
--- NOTE | 2023-10-05 09:48 | PM.IMPN ---
Progress Note: A&P Assessment and Plan (1) Unresponsive episode: Code(s): R40.4 - Transient alteration of awareness Status: Acute Assessment and Plan: 10/02/23: possibly related to infection vs. hyponatremia vs. BP elevation previously had a normal EEG however remains on Keppra neurologic checks Q4 hours UA positive for bacteria, start on Rocephin pending UA culture Brain CT did not show any acute findings BC pending 10/03/23: Possibly due to hyponatremia versus urinary tract infection versus blood pressure elevation Patient is alert oriented x3. She did have 1 bout of confusion through the night. Continue neuro checks q.4 hours Urine cultures pending Blood culture showing no growth 10/04/23: Na+ 127 today Urine culture showing enterococcus species on preliminary Blood cultures showing no growth to date Continue neuro checks. 10/05/23: Remains alert and oriented x4 Na+ 130 today Urine culture showing enterococcus species on final report, patient started on Amoxicillin oral yesterday Blood cultures still showing no growth Continue neuro checks. (2) Hyponatremia: Code(s): E87.1 - Hypo-osmolality and hyponatremia Status: Chronic Assessment and Plan: 10/02/23: chronic on acute urine sodium 46, will check cortisol random with labs in am for now, 2L fluid restriction as this may be SIADH consider consult to nephrology d/c IVF, up to 126 from 124 from admission continue to monitor 10/03/23: Sodium level 129 today Continue fluid restriction Urine osmolarity and serum osmolarity pending Will get Nephrology on board for management of electrolyte imbalance 10/04/23: Na+ level 127 today Continue with 2L fluid restriction Urine Na+ 46, Urine creatinine 38.2 Urine osmolarity and serum osmolarity pending. Nephrology consulted for continued management of hyponatremia which could potentially be SIADH or cerebral salt wasting syndrome post stroke. 10/05/23: Na+ 130 today Continue with 2L fluid restriction Urine Na+ 46, Urine creatinine 38.2, Urine osmolarity 210, serum osmolarity 270. Nephrology seen and following, sodium level has been chronically low likely due to multiple co-morbidities and her recent CVA insulting it further. [place]/Lambda light chain and protein electrophoresis routine results pending (3) Type 2 diabetes mellitus: Qualifiers: Diabetes mellitus complication status: with other specified complication Diabetes mellitus longterm insulin use: without terminal press operator use Qualified Code(s): E11.69 - Type 2 diabetes mellitus with other specified complication Code(s): E11.9 - Type 2 diabetes mellitus without complications Status: Acute Assessment and Plan: 10/02/23: home insulin, AccuCheck and hypoglycemic protocol 10/03/23: Blood sugars ranging 133-146 Continue with current treatment plan 10/05/23: No change to current treatment plan (4) Tachycardia: Code(s): R00.0 - Tachycardia, unspecified Status: Acute Assessment and Plan: 10/02/23: new onset this morning sustained in 140s, bradycardic on admission Repeat EKG 10/02 showed no changes from admission cardiology consulted restart home metoprolol and continue diltiazem monitor closely TSH w/ reflex ordered 10/03/23: Currently bradycardic in the 40's Cardiology on board and is following Patient currently on metoprolol 100 mg b.i.d. and diltiazem 180 mg TSH 1.990, PTH 281.3 10/05/23: No change to current treatment plan Patient will need a halter monitor upon discharge for 14 days. Plan Time Spent With Patient Time with patient: Greater than 35 minutes Subjective Date/time seen: 10/05/23 09:48 Interval history: 10/03/23: This is a 77 year old female who presented to the hospital on 10/01/23 with complaints of weakness and confusion. Work up in the hospital includes head CT which shown old infarc
--- NOTE | 2023-10-05 10:20 | PM.PNCARD ---
Progress Note: A&P Assessment and Plan (1) Tachycardia: Code(s): R00.0 - Tachycardia, unspecified Status: Acute Assessment and Plan: Tele shows what appears to be SVT. Has known paroxysmal atrial fibrillation. Has been in and out of sinus rhythm during her hospitalization, but currently in atrial fibrillation with controlled rate. Continue tele monitoring for now. Continue Metoprolol 100mg BID. Diltiazem increased from 120mg to 180mg. Discharge home with a 14 day monitor (order placed). (2) Acute hyponatremia: Code(s): E87.1 - Hypo-osmolality and hyponatremia Status: Acute Assessment and Plan: Management and workup as per primary team (3) Transient confusion: Code(s): R41.0 - Disorientation, unspecified Status: Acute Assessment and Plan: Management and workup as per primary team (4) Coronary artery disease: Code(s): I25.10 - Atherosclerotic heart disease of [place] coronary artery without angina pectoris Status: Acute Assessment and Plan: Stable. Continue Plavix and statin. (5) Atrial fibrillation: Code(s): I48.91 - Unspecified atrial fibrillation Status: Acute Assessment and Plan: Beta romeo and Diltiazem as noted above. Continue Xarelto Subjective Date/time seen: 10/05/23 10:20 Interval history: Reason for visit: Tachycardia HPI: We are consulted for tachycardia. This is a 77 year old female with coronary artery disease with STEMI in May 2023 s/p PCI to the LAD, paroxysmal atrial fibrillation, CVA, diabetes who presented to [facility] with weakness, confusion. Daughter is at bedside who provides additional history. On Sunday, patient's other daughter found her to be confused and sleepy. This was noted again on day of admission by the daughter present in the room. Daughter states that she went to patient's house and she was unresponsive, she would open her eyes when she called her mom's name, but would fall back asleep quickly. Patient was admitted to the hospital in August 2023 for hyponatremia and UTI after presenting with transient confusion. She has been noted to be hypertensive this admission. This morning, patient is awake and alert and conversive, not confused. She reports feeling tired. She was noted to be tachycardic this morning. Patient reports having palpitations at home occasionally. Date of service 10/03: Awake, alert, sitting up at bedside eating lunch. Tele showed some SVT earlier today -- patient denies any palpitations tonight. Reports sleeping soundly overnight, although she states that when she woke up, she thought she was at home. Had some lightheadedness when standing up and walking to the bathroom. Date of service 10/05/23: Feeling well today. Complaining of constipation. She remains in atrial fibrillation with intermittent tachycardia but generally rate is well controlled. No shortness of breath or chest pain. She does report palpitations after she got up to use the bathroom earlier this morning. Review of Systems Review of Systems: All systems reviewed & are unremarkable except as noted in HPI and below Exam Const: General: comfortable and no acute distress HENMT: Mouth: Yes dry mucous membranes Eyes: General: appearance normal, both eyes and all related structures Sclera: sclerae normal Neck: Neck: supple Resp: Effort & Inspection: normal respiratory effort Auscultation: clear to auscultation bilaterally Cardio: Rate: regular rate Rhythm: abnormal rhythm irregularly irregular Heart sounds: no murmurs Skin: General skin exam: normal color Neuro: Speech: normal speech Psych: Mental Status: mental status grossly normal Affect: normal affect Objective Data Vital Signs Vital Signs: Vital Signs - 24 hr 10/04/23 12:00 10/04/23 14:00 10/04/23 16:00 Temperature 36.9 C Pulse Rate 74 59 L 67 Respiratory Rate 18 Blood Pressure 131/57 L Pulse Oximetry 99
--- NOTE | 2023-10-05 11:26 | P.PNNP_ITS ---
Progress Note: A&P Assessment and Plan (1) Hyponatremia: Code(s): E87.1 - Hypo-osmolality and hyponatremia Status: Chronic Assessment and Plan: * acute on chronic * has been presen since at least 2020 * sodium seems to fluctuate anywhere from 124 - 136mmol/L * etiology no clear but appears asymptomatic * risk factors: * recent CVAs * PPI use * diabetes (and associated fluctuation blood sugars) * known history of excessive free water intake * thyroid disease * evaluation to date: * TSH okay * cortisol acceptable * urine electrolytes non-prerenal * SPEP/UPEP pending * serum/urine osmo noted * already on fluid restriction - increase this? * could consider salt tabs if necessary as well * follow trend of repeat sodium levels (2) Urinary tract infection: Code(s): N39.0 - Urinary tract infection, site not specified Status: Acute Assessment and Plan: * UA noted * urine culture with Enterococcus * on antibiotics (3) Tachycardia: Code(s): R00.0 - Tachycardia, unspecified Status: Acute Assessment and Plan: * Cardiology following * known history of atrial fibrillation * element of DVT * on metoprolol and diltiazem * 14-day monitor on discharge (4) Atrial fibrillation: Code(s): I48.91 - Unspecified atrial fibrillation Status: Acute Assessment and Plan: * rate control strategy * on anticoagulation (5) Type 2 diabetes mellitus: Qualifiers: Diabetes mellitus complication status: with other specified complication Diabetes mellitus oil heaterman insulin use: without oil heaterman use Qualified Code(s): E11.69 - Type 2 diabetes mellitus with other specified complication Code(s): E11.9 - Type 2 diabetes mellitus without complications Status: Chronic Assessment and Plan: * follow accu-cheks * glycemic control per hopitalists Will continue to follow. Subjective Date/time seen: 10/05/23 11:26 Interval history: Follow-up for acute on chronic hyponatremia. Sodium level is stable if not improved by trend of labs; no apparent distress noted; no issues/events overnight or earlier this morning. Exam Narrative: General: elderly but WD/WN fenale in NAD Heart: normal S1 and S2; no rub Lungs: clear to auscultation Abdomen: soft, nontender, nondistended, positive bowel sounds Extremities: no cyanosis or clubbing; no edema Skin: warm and dry Objective Data Vital Signs Vital Signs: Vital Signs Temp Pulse Resp BP Pulse Ox O2 Del Method 10/05/23 11:00 97.9 F 51 L 16 140/44 L 100 10/05/23 09:20 Room Air 10/05/23 09:25 96 10/05/23 05:07 98.2 F 60 14 126/70 100 10/05/23 04:00 76 10/05/23 00:00 64 10/04/23 20:00 66 10/04/23 21:39 85 10/04/23 21:26 97 F L 72 16 157/72 H 100 Intake/Output Intake/Output: Intake & Output 10/02/23 10/03/23 10/04/23 10/05/23 23:59 23:59 23:59 23:59 Intake Total 1942 1538 1314 1030 Output Total 5480 4114 252 Balance 267 9033 -068 747 Meds/Results Medications: Active Medications Generic Name Dose Route
--- NOTE | 2023-10-05 11:26 | PM.PNNEP ---
Progress Note: A&P Assessment and Plan (1) Hyponatremia: Code(s): E87.1 - Hypo-osmolality and hyponatremia Status: Chronic Assessment and Plan: acute on chronic has been presen since at least 2020 sodium seems to fluctuate anywhere from 124 - 136mmol/L etiology no clear but appears asymptomatic risk factors: recent CVAs PPI use diabetes (and associated fluctuation blood sugars) known history of excessive free water intake thyroid disease evaluation to date: TSH okay cortisol acceptable urine electrolytes non-prerenal SPEP/UPEP pending serum/urine osmo noted already on fluid restriction - increase this? could consider salt tabs if necessary as well follow trend of repeat sodium levels (2) Urinary tract infection: Code(s): N39.0 - Urinary tract infection, site not specified Status: Acute Assessment and Plan: UA noted urine culture with Enterococcus on antibiotics (3) Tachycardia: Code(s): R00.0 - Tachycardia, unspecified Status: Acute Assessment and Plan: Cardiology following known history of atrial fibrillation element of DVT on metoprolol and diltiazem 14-day monitor on discharge (4) Atrial fibrillation: Code(s): I48.91 - Unspecified atrial fibrillation Status: Acute Assessment and Plan: rate control strategy on anticoagulation (5) Type 2 diabetes mellitus: Qualifiers: Diabetes mellitus complication status: with other specified complication Diabetes mellitus intermediate teacher insulin use: without intermediate teacher use Qualified Code(s): E11.69 - Type 2 diabetes mellitus with other specified complication Code(s): E11.9 - Type 2 diabetes mellitus without complications Status: Chronic Assessment and Plan: follow accu-cheks glycemic control per hopitalists Will continue to follow. Subjective Date/time seen: 10/05/23 11:26 Interval history: Follow-up for acute on chronic hyponatremia. Sodium level is stable if not improved by trend of labs; no apparent distress noted; no issues/events overnight or earlier this morning. Exam Narrative: General: elderly but WD/WN fenale in NAD Heart: normal S1 and S2; no rub Lungs: clear to auscultation Abdomen: soft, nontender, nondistended, positive bowel sounds Extremities: no cyanosis or clubbing; no edema Skin: warm and dry Objective Data Vital Signs Vital Signs: Vital Signs Temp Pulse Resp BP Pulse Ox O2 Del Method 10/05/23 11:00 97.9 F 51 L 16 140/44 L 100 10/05/23 09:20 Room Air 10/05/23 09:25 96 10/05/23 05:07 98.2 F 60 14 126/70 100 10/05/23 04:00 76 10/05/23 00:00 64 10/04/23 20:00 66 10/04/23 21:39 85 10/04/23 21:26 97 F L 72 16 157/72 H 100 Intake/Output Intake/Output: Intake & Output 10/02/23 10/03/23 10/04/23 10/05/23 23:59 23:59 23:59 23:59 Intake Total 1942 1538 1314 1030 Output Total 1675 1950 650 Balance 267 2137 -379 380 Meds/Results Medications: Active Medications Generic Name Dose Route Start Last Admin Trade Name Freq PRN Reason Stop Dose Admin Amoxicillin 500 mg 10/04/23 13:00 10/05/23 14:14 Amoxicillin 500 Mg Capsule PO 10/11/23 06:01 500 mg Q8HR TEO Administration Clopidogrel Bisulfate 75 mg 10/02/23 09:00 10/05/23 09:26 Clopidogrel Bisulfate 75 Mg Tablet PO 75 mg QAM TEO Administration Dextrose 12.5 gm 10/01/23 21:06 Dextrose 50% 25 Gm/50 Ml Syringe IV PUSH PRN PRN Hypoglycemia Protocol Diltiazem HCl 180 mg 10/03/23 09:00 10/05/23 09:25 Diltiazem Hcl Cd 180 Mg Cap.24hr PO 180 mg QAM TEO Administration Docusate Sodium 100 mg 10/01/23 21:05 10/05/23 09:26 Docusate Sodium 100 Mg Capsule PO 100 mg DAILY PRN Administration Constipation Glucagon 1 mg 10/01/23 21:06 Glucagon For Inj 1 Mg Vial IM PRN PRN H
[2023-10-05 11:39] LABS: Glucose Point of Care 192 mg/dl (65-105)
[2023-10-05 17:16] LABS: Glucose Point of Care 195 mg/dl (65-105)
[2023-10-05 20:25] LABS: Glucose Point of Care 251 mg/dl (65-105)
[2023-10-05] MEDS: INSULIN ASPART (*BKC) 100 UNITS/ML SUB-Q (20:53)
[2023-10-05] MEDS: INSULIN GLARGINE (*BKC) 100 UNITS/ML 19 UNITS SUB-Q (20:55)
[2023-10-06] VITALS (13 sets, daily range): BP systolic 151–176; BP diastolic 47–78; PULSE 42–56; RESP 16–22; TEMP 36.3–36.7; O2SAT 99–100
[2023-10-06] MEDS: AMOXICILLIN 500 MG CAPSULE PO ×3 (05:15→21:24)
[2023-10-06] MEDS: LEVOTHYROXINE SODIUM 100 MCG TABLET PO (05:15)
[2023-10-06 07:02] LABS: Basophils Absolute Auto 0.1 K/mm3 (0.0-0.1); Basophils Percent Auto 0.7 % (0.2-1.2); Eosinophils Absolute Auto 0.1 K/mm3 (0-0.3); Eosinophils Percent Auto 1.2 % (0-4.4); Hematocrit 30.2 % (37.0-47.0); Hemoglobin 9.8 g/dL (12.0-15.0); Immature Granulocyte Absolute 0.03 K/mm3 (0.00-0.031); Immature Granulocyte Percent A 0.3 % (0-0.5); Lymphocytes Absolute Auto 1.63 K/mm3 (0.9-3.2); Mean Corpuscular HGB Conc 32.5 g/dl (32-36); Mean Corpuscular Volume 86.3 fl (80-100); Mean Platelet Volume 9.7 fl (7.4-10.4); Monocytes Absolute Auto 0.8 K/mm3 (0.1-0.6); Monocytes Percent Auto 9.2 % (2.6-8.5); Neutrophils Percent Auto 69.6 % (45.5-73.1); Platelet Count Result 284 k/mm3 (150-375); Red Cell Distribution Width 14.2 % (11.5-14.5); White Blood Count 8.6 K/mm3 (4.5-10.0)
[2023-10-06 07:12] LABS: Alanine Aminotransferase 14 U/L (6-35); Albumin Level 3.6 g/dL (3.5-5.1); Alkaline Phosphatase 56 U/L (38-126); Anion Gap 10 mmol/L (8-16); Aspartate Amino Transferase 22 U/L (14-36); Bilirubin,Total 0.5 mg/dL (0.2-1.3); Blood Urea Nitrogen 20 mg/dL (7-17); Calcium 8.8 mg/dL (8.4-10.2); Carbon Dioxide 24 mmol/L (22-30); Chloride 93 mmol/L (98-107); Estimated CRCL calculation 43 ml/min; Estimated Glomerular Filt Rate 60; Glucose 159 mg/dL (65-110); Potassium 3.6 mmol/L (3.4-5.0); Sodium 127 mmol/L (137-145)
[2023-10-06 08:19] LABS: Glucose Point of Care 159 mg/dl (65-105)
--- NOTE | 2023-10-06 08:35 | P.PNIM_ITS ---
Progress Note: A&P Assessment and Plan (1) Unresponsive episode: Code(s): R40.4 - Transient alteration of awareness Status: Acute Assessment and Plan: 10/02/23: * possibly related to infection vs. hyponatremia vs. BP elevation * previously had a normal EEG however remains on Keppra * neurologic checks Q4 hours * UA positive for bacteria, start on Rocephin pending UA culture * Brain CT did not show any acute findings * BC pending 10/03/23: * Possibly due to hyponatremia versus urinary tract infection versus blood pressure elevation * Patient is alert oriented x3. She did have 1 bout of confusion through the night. * Continue neuro checks q.4 hours * Urine cultures pending * Blood culture showing no growth 10/04/23: * Na+ 127 today * Urine culture showing enterococcus species on preliminary * Blood cultures showing no growth to date * Continue neuro checks. 10/05/23: * Remains alert and oriented x4 * Na+ 130 today * Urine culture showing enterococcus species on final report, patient started on Amoxicillin oral yesterday * Blood cultures still showing no growth * Continue neuro checks. 10/06/23: * Na+ 127 today * Blood cultures showing no growth (2) Hyponatremia: Code(s): E87.1 - Hypo-osmolality and hyponatremia Status: Chronic Assessment and Plan: 10/02/23: * chronic on acute * urine sodium 46, will check cortisol random with labs in am * for now, 2L fluid restriction as this may be SIADH * consider consult to nephrology * d/c IVF, up to 126 from 124 from admission * continue to monitor 10/03/23: * Sodium level 129 today * Continue fluid restriction * Urine osmolarity and serum osmolarity pending * Will get Nephrology on board for management of electrolyte imbalance 10/04/23: * Na+ level 127 today * Continue with 2L fluid restriction * Urine Na+ 46, Urine creatinine 38.2 * Urine osmolarity and serum osmolarity pending. * Nephrology consulted for continued management of hyponatremia which could potentially be SIADH or cerebral salt wasting syndrome post stroke. 10/05/23: * Na+ 130 today * Continue with 2L fluid restriction * Urine Na+ 46, Urine creatinine 38.2, Urine osmolarity 210, serum osmolarity 270. * Nephrology seen and following, sodium level has been chronically low likely due to multiple co-morbidities and her recent CVA insulting it further. * [place]/Lambda light chain and protein electrophoresis routine results pending 10/06/23: * Na+ 127 today * No change to current treatment plan, still awaiting lab results * Nephrology following. (3) Type 2 diabetes mellitus: Qualifiers: Diabetes mellitus complication status: with other specified complication Diabetes mellitus senior care insulin use: without senior care use Qualified Code(s): E11.69 - Type 2 diabetes mellitus with other specified complication Code(s): E11.9 - Type 2 diabetes mellitus without complications Status: Chronic Assessment and Plan: 10/02/23: * home insulin, AccuCheck and hypoglycemic protocol 10/03/23: * Blood sugars ranging 133-146 * Continue with current treatment plan 10/05/23: * No change to current treatment plan (4) Tachycardia: Code(s): R00.0 - Tachycardia, unspecified Status: Acute Assessment and Plan: 10/02/23: * new onset this morning sustained in 140s, bradycardic on admission * Repeat EKG 10/02 showed no changes from admission * cardiology consulted * restart home metoprolol and continue
--- NOTE | 2023-10-06 08:35 | PM.IMPN ---
Progress Note: A&P Assessment and Plan (1) Unresponsive episode: Code(s): R40.4 - Transient alteration of awareness Status: Acute Assessment and Plan: 10/02/23: possibly related to infection vs. hyponatremia vs. BP elevation previously had a normal EEG however remains on Keppra neurologic checks Q4 hours UA positive for bacteria, start on Rocephin pending UA culture Brain CT did not show any acute findings BC pending 10/03/23: Possibly due to hyponatremia versus urinary tract infection versus blood pressure elevation Patient is alert oriented x3. She did have 1 bout of confusion through the night. Continue neuro checks q.4 hours Urine cultures pending Blood culture showing no growth 10/04/23: Na+ 127 today Urine culture showing enterococcus species on preliminary Blood cultures showing no growth to date Continue neuro checks. 10/05/23: Remains alert and oriented x4 Na+ 130 today Urine culture showing enterococcus species on final report, patient started on Amoxicillin oral yesterday Blood cultures still showing no growth Continue neuro checks. 10/06/23: Na+ 127 today Blood cultures showing no growth (2) Hyponatremia: Code(s): E87.1 - Hypo-osmolality and hyponatremia Status: Chronic Assessment and Plan: 10/02/23: chronic on acute urine sodium 46, will check cortisol random with labs in am for now, 2L fluid restriction as this may be SIADH consider consult to nephrology d/c IVF, up to 126 from 124 from admission continue to monitor 10/03/23: Sodium level 129 today Continue fluid restriction Urine osmolarity and serum osmolarity pending Will get Nephrology on board for management of electrolyte imbalance 10/04/23: Na+ level 127 today Continue with 2L fluid restriction Urine Na+ 46, Urine creatinine 38.2 Urine osmolarity and serum osmolarity pending. Nephrology consulted for continued management of hyponatremia which could potentially be SIADH or cerebral salt wasting syndrome post stroke. 10/05/23: Na+ 130 today Continue with 2L fluid restriction Urine Na+ 46, Urine creatinine 38.2, Urine osmolarity 210, serum osmolarity 270. Nephrology seen and following, sodium level has been chronically low likely due to multiple co-morbidities and her recent CVA insulting it further. Buckhorn/Lambda light chain and protein electrophoresis routine results pending 10/06/23: Na+ 127 today No change to current treatment plan, still awaiting lab results Nephrology following. (3) Type 2 diabetes mellitus: Qualifiers: Diabetes mellitus complication status: with other specified complication Diabetes mellitus group home insulin use: without terminal carman use Qualified Code(s): E11.69 - Type 2 diabetes mellitus with other specified complication Code(s): E11.9 - Type 2 diabetes mellitus without complications Status: Chronic Assessment and Plan: 10/02/23: home insulin, AccuCheck and hypoglycemic protocol 10/03/23: Blood sugars ranging 133-146 Continue with current treatment plan 10/05/23: No change to current treatment plan (4) Tachycardia: Code(s): R00.0 - Tachycardia, unspecified Status: Acute Assessment and Plan: 10/02/23: new onset this morning sustained in 140s, bradycardic on admission Repeat EKG 10/02 showed no changes from admission cardiology consulted restart home metoprolol and continue diltiazem monitor closely TSH w/ reflex ordered 10/03/23: Currently bradycardic in the 40's Cardiology on board and is following Patient currently on metoprolol 100 mg b.i.d. and diltiazem 180 mg TSH 1.990, PTH 281.3 10/05/23: No change to current treatment plan Patient will need a halter monitor upon discharge for 14 days. Plan Time Spent With Patient Time with patient: Greater than 35 minutes Subjective Date/time seen: 10/06/23 08:35 Interval history: Inte
[2023-10-06] MEDS: MULTIVITAMINS /C LUTEIN (CENTRUM SILVER) TABLET *BKC 1 TAB PO (08:49)
[2023-10-06] MEDS: ROSUVASTATIN 10 MG TABLET 30 MG PO (08:50)
[2023-10-06] MEDS: dilTIAZem HCL CD 180 MG CAP.24HR PO (08:50)
[2023-10-06] MEDS: RIVAROXABAN 15 MG TABLET PO (08:50)
[2023-10-06] MEDS: METOPROLOL TARTRATE 50 MG TAB 100 MG PO (08:50)
[2023-10-06] MEDS: levETIRAcetam 250 MG TABLET PO ×2 (08:50→21:16)
[2023-10-06] MEDS: PANTOPRAZOLE 40 MG TABLET PO (08:50)
[2023-10-06] MEDS: CLOPIDOGREL BISULFATE 75 MG TABLET PO (08:50)
[2023-10-06 11:57] LABS: Glucose Point of Care 298 mg/dl (65-105)
--- NOTE | 2023-10-06 12:45 | P.PNNP_ITS ---
Progress Note: A&P Assessment and Plan (1) Hyponatremia: Code(s): E87.1 - Hypo-osmolality and hyponatremia Status: Chronic Assessment and Plan: * acute on chronic * has been presen since at least 2020 * sodium seems to fluctuate anywhere from 124 - 136mmol/L * etiology no clear but appears asymptomatic * risk factors: * recent CVAs * PPI use * diabetes (and associated fluctuation blood sugars) * known history of excessive free water intake * thyroid disease * evaluation to date: * TSH okay * cortisol acceptable * urine electrolytes non-prerenal * SPEP/UPEP pending * serum/urine osmo noted * already on fluid restriction - consider increasing this (but question if she would follow on discharge) * could consider salt tabs initiation * follow trend of repeat sodium levels (2) Urinary tract infection: Code(s): N39.0 - Urinary tract infection, site not specified Status: Acute Assessment and Plan: * UA noted * urine culture with Enterococcus * on antibiotics (3) Tachycardia: Code(s): R00.0 - Tachycardia, unspecified Status: Acute Assessment and Plan: * Cardiology following * known history of atrial fibrillation * element of DVT * on metoprolol and diltiazem * 14-day monitor on discharge (4) Atrial fibrillation: Code(s): I48.91 - Unspecified atrial fibrillation Status: Acute Assessment and Plan: * rate control strategy * on anticoagulation (5) Type 2 diabetes mellitus: Qualifiers: Diabetes mellitus complication status: with other specified complication Diabetes mellitus detention insulin use: without local intermodal truck driver use Qualified Code(s): E11.69 - Type 2 diabetes mellitus with other specified complication Code(s): E11.9 - Type 2 diabetes mellitus without complications Status: Chronic Assessment and Plan: * follow accu-cheks * glycemic control per hospitalists Not opposed to discharge from renal perspective (as long as sodium remains relatively stable) if otherwise medically stable (with follow-up on pending tests given chronic nature of her hyponatremia) Will continue to follow. Subjective Date/time seen: 10/06/23 12:45 Interval history: Follow-up for acute on chronic hyponatremia. No new issues or problems voiced at the time of my visit; no apparent distress noted; feels reasonably well; sodium continues to fluctuate (but still within range of baseline); no other acute complatins to report; no events overnight or earlier this AM. Exam Narrative: General: elderly but WD/WN fenale in NAD Heart: normal S1 and S2; no rub Lungs: clear to auscultation Abdomen: soft, nontender, nondistended, positive bowel sounds Extremities: no cyanosis or clubbing; no edema Skin: warm and intact Objective Data Vital Signs Vital Signs: Vital Signs Temp Pulse Resp BP Pulse Ox O2 Del Method 10/06/23 12:00 51 L 10/06/23 08:00 55 L 10/06/23 15:00 98.1 F 52 L 22 H 152/51 H 100 10/06/23 08:00 Room Air 10/06/23 08:50 56 L 10/06/23 04:00 54 L 10/06/23 05:20 97.3 F L 55 L 16 151/47 H 99 10/06/23 00:00 42 L 10/05/23 21:00 52 L 10/05/23 20:57 50 L 10/05/23 21:06 97.5 F L 52 L 16 13
--- NOTE | 2023-10-06 12:45 | PM.PNNEP ---
Progress Note: A&P Assessment and Plan (1) Hyponatremia: Code(s): E87.1 - Hypo-osmolality and hyponatremia Status: Chronic Assessment and Plan: acute on chronic has been presen since at least 2020 sodium seems to fluctuate anywhere from 124 - 136mmol/L etiology no clear but appears asymptomatic risk factors: recent CVAs PPI use diabetes (and associated fluctuation blood sugars) known history of excessive free water intake thyroid disease evaluation to date: TSH okay cortisol acceptable urine electrolytes non-prerenal SPEP/UPEP pending serum/urine osmo noted already on fluid restriction - consider increasing this (but question if she would follow on discharge) could consider salt tabs initiation follow trend of repeat sodium levels (2) Urinary tract infection: Code(s): N39.0 - Urinary tract infection, site not specified Status: Acute Assessment and Plan: UA noted urine culture with Enterococcus on antibiotics (3) Tachycardia: Code(s): R00.0 - Tachycardia, unspecified Status: Acute Assessment and Plan: Cardiology following known history of atrial fibrillation element of DVT on metoprolol and diltiazem 14-day monitor on discharge (4) Atrial fibrillation: Code(s): I48.91 - Unspecified atrial fibrillation Status: Acute Assessment and Plan: rate control strategy on anticoagulation (5) Type 2 diabetes mellitus: Qualifiers: Diabetes mellitus complication status: with other specified complication 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 Subjective Date/time seen: 10/06/23 12:45 Interval history: Follow-up for acute on chronic hyponatremia. No new issues or problems voiced at the time of my visit; no apparent distress noted; feels reasonably well; sodium continues to fluctuate (but still within range of baseline); no other acute complatins to report; no events overnight or earlier this AM. Exam Narrative: General: elderly but WD/WN fenale in NAD Heart: normal S1 and S2; no rub Lungs: clear to auscultation Abdomen: soft, nontender, nondistended, positive bowel sounds Extremities: no cyanosis or clubbing; no edema Skin: warm and intact Objective Data Vital Signs Vital Signs: Vital Signs Temp Pulse Resp BP Pulse Ox O2 Del Method 10/06/23 12:00 51 L 10/06/23 08:00 55 L 10/06/23 15:00 98.1 F 52 L 22 H 152/51 H 100 10/06/23 08:00 Room Air 10/06/23 08:50 56 L 10/06/23 04:00 54 L 10/06/23 05:20 97.3 F L 55 L 16 151/47 H 99 10/06/23 00:00 42 L 10/05/23 21:00 52 L 10/05/23 20:57 50 L 10/05/23 21:06 97.5 F L 52 L 16 138/58 L 100 Intake/Output Intake/Output: Intake & Output 10/03/23 10/04/23 10/05/23 10/06/23 23:59 23:59 23:59 23:59 Intake Total 1538 1314 1270 250 Output Total 1950 650 700 Balance 1538 636 620 -450 Meds/Results Medications: Active Medications Generic Name Dose Route Start Last Admin Trade Name Rajwinder PRN Reason Stop Dose Admin Amoxicillin 500 mg 10/04/23 13:00 10/06/23 13:01 Amoxicillin 500 Mg Capsule PO 10/11/23 06:01 500 mg Q8HR TEO Administration Clopidogrel Bisulfate 75 mg 10/02/23 09:00 10/06/23 08:50 Clopidogrel Bisulfate 75 Mg Tablet PO 75 mg QAM TEO Administration Dextrose 12.5 gm 10/01/23 21:06 Dextrose 5
[2023-10-06] MEDS: INSULIN ASPART (*BKC) 100 UNITS/ML SUB-Q (12:58)
[2023-10-06 17:18] LABS: Glucose Point of Care 194 mg/dl (65-105)
[2023-10-06] MEDS: INSULIN GLARGINE (*BKC) 100 UNITS/ML 19 UNITS SUB-Q (21:20)
[2023-10-06 21:33] LABS: Glucose Point of Care 187 mg/dl (65-105)
[2023-10-07] VITALS (12 sets, daily range): BP systolic 131–184; BP diastolic 42–59; PULSE 39–152; RESP 17–18; TEMP 29.7–37.1; O2SAT 98–100
[2023-10-07] MEDS: AMOXICILLIN 500 MG CAPSULE PO ×3 (05:22→21:06)
[2023-10-07] MEDS: LEVOTHYROXINE SODIUM 100 MCG TABLET PO (05:22)
[2023-10-07 07:54] LABS: Basophils Absolute Auto 0.1 K/mm3 (0.0-0.1); Basophils Percent Auto 0.8 % (0.2-1.2); Eosinophils Absolute Auto 0.1 K/mm3 (0-0.3); Hematocrit 32.2 % (37.0-47.0); Hemoglobin 10.5 g/dL (12.0-15.0); Immature Granulocyte Absolute 0.05 K/mm3 (0.00-0.031); Immature Granulocyte Percent A 0.6 % (0-0.5); Lymphocytes Absolute Auto 1.71 K/mm3 (0.9-3.2); Lymphocytes Percent Auto 19.7 % (18.3-44.2); Mean Corpuscular HGB Conc 32.6 g/dl (32-36); Mean Corpuscular Hemoglobin 28.2 pg (26-34); Mean Corpuscular Volume 86.3 fl (80-100); Mean Platelet Volume 9.8 fl (7.4-10.4); Monocytes Absolute Auto 0.8 K/mm3 (0.1-0.6); Monocytes Percent Auto 8.7 % (2.6-8.5); Neutrophils Percent Auto 69.2 % (45.5-73.1); Platelet Count Result 313 k/mm3 (150-375); Red Blood Count 3.73 M/mm3 (4.2-5.4); Red Cell Distribution Width 14.2 % (11.5-14.5); White Blood Count 8.7 K/mm3 (4.5-10.0)
[2023-10-07 08:10] LABS: Alanine Aminotransferase 16 U/L (6-35); Albumin Level 3.9 g/dL (3.5-5.1); Alkaline Phosphatase 61 U/L (38-126); Anion Gap 12 mmol/L (8-16); Aspartate Amino Transferase 25 U/L (14-36); Bilirubin,Total 0.4 mg/dL (0.2-1.3); Blood Urea Nitrogen 13 mg/dL (7-17); Calcium 9.3 mg/dL (8.4-10.2); Carbon Dioxide 24 mmol/L (22-30); Chloride 95 mmol/L (98-107); Estimated CRCL calculation 62 ml/min; Estimated Glomerular Filt Rate > 60; Glucose 135 mg/dL (65-110); Potassium 3.8 mmol/L (3.4-5.0); Sodium 131 mmol/L (137-145)
--- NOTE | 2023-10-07 08:12 | PM.DS ---
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 Labs revealed Na+ 124, K+ 3.1, Chloride 89, BUN 12, Creatinine 0.60, Lactic acid 1.0, liver enzymes normal, troponin negative x3. UA shown 1+ protein, trace glucose, 3+ bacteria. Urine sodium 46, Urine creatinine 38.2. Patient was started on Rocephin for UTI, UC obtained and showing enterococcus species on the final read. On examination today patient is alert and oriented x3, lying in the bed. VSS, she is afebrile, she currently is on room air. HR in the upper 40's today, Metoprolol was held yesterday by Cardiology. Cardiology seen patient today and made adjustments to her Metoprolol. She is stable for discharge from their standpoint. She denies any pain or discomfort at this time. Labs today reveal white blood cell count 7.8, hemoglobin 10.3, hematocrit 32.1, sodium 131, potassium 3.9, chloride 94 Will, liver enzymes are normal. Patient is stable for discharge at this time. She will need to call cardiology office right away for placement of halter monitor for 14 days. She will need to follow up with her PCP, Cardiology, and Nephrology. Status at Discharge Cognitive/behavioral status at discharge: Alert and oriented x3 Functional status at discharge: uses cane/walker Overall status at discharge: patient is progressing back to baseline Time Spent with Patient Time attestation: Total time spent providing and/or coordinating discharge services: Time spent: Greater than 30 minutes Exam Narrative: General: In no acute distress, well nourished Head: atraumatic, no encephalopathy Eyes: EOMI, PERRLA, sclera clear ENT: moist mucous membranes, nasal passages clear Neck: supple, no JVD, no adenopathy, trachea midline Cardiac: Normal S1 and S2. No murmur, gallops or friction rubs, peripheral pulses intact. Respiratory: Lungs clear to auscultation, no adventitious lung sounds Gastrointestinal: soft, non-distended, non-tender, normoactive bowel sounds. : voiding without difficulty. Extremities: moves all extremities well, no edema, good ROM, strength 5/5 Skin: clean, dry, intact. No wounds or lesions. Neuro: Alert and oriented x4, cranial nerves intact, no neuro deficits. Psych: normal mood, normal affect, interactive, depressed DS: Data Data Completed and Pending Completed studies during hospitalization: Head CT Chest x-ray Pending studies at discharge: none Labs on day of discharge: Labs from last 24 hours 10/07/23 10/06/23 10/06/23 07:16 21:15 16:59 WBC 8.7 RBC 3.73 L Hgb 10.5 L Hct 32.2 L MCV 86.3 MCH 28.2 MCHC 32.6 RDW 14.2 Plt Count 313 MPV 9.8 Immature Gran % (Auto) 0.6 H Neut % (Auto) 69.2 Lymph % (Auto) 19.7 [place] % (Auto) 8.7 H Eos % (Auto) 1.0 Baso % (Auto) 0.8 Lymph # (Auto) 1.71 Mo
[2023-10-07 08:23] LABS: Glucose Point of Care 138 mg/dl (65-105)
[2023-10-07] MEDS: CLOPIDOGREL BISULFATE 75 MG TABLET PO (08:34)
[2023-10-07] MEDS: dilTIAZem HCL CD 180 MG CAP.24HR PO (08:34)
[2023-10-07] MEDS: PANTOPRAZOLE 40 MG TABLET PO (08:34)
[2023-10-07] MEDS: ROSUVASTATIN 10 MG TABLET 30 MG PO (08:35)
[2023-10-07] MEDS: MULTIVITAMINS /C LUTEIN (CENTRUM SILVER) TABLET *BKC 1 TAB PO (08:36)
[2023-10-07] MEDS: RIVAROXABAN 15 MG TABLET PO (08:36)
[2023-10-07] MEDS: levETIRAcetam 250 MG TABLET PO ×2 (08:36→20:37)
--- NOTE | 2023-10-07 10:40 | PC.NURSE ---
Patient minimally forgetful during morning assessment. Patient is cooperative. Patient wanted to take her medication after eating breakfast. She states she had a really good BM this morning and is no longer constipated. Upon palpation HR was 57 and I held the Metoprolol for see if she elevates any by lunch time, as she can drop into the 30's while awake.
--- NOTE | 2023-10-07 11:27 | PM.PNNEP ---
Progress Note: A&P Assessment and Plan (1) Hyponatremia: Code(s): E87.1 - Hypo-osmolality and hyponatremia Status: Chronic Assessment and Plan: acute on chronic has been presen since at least 2020 sodium seems to fluctuate anywhere from 124 - 136mmol/L etiology no clear but appears asymptomatic risk factors: recent CVAs PPI use diabetes (and associated fluctuation blood sugars) known history of excessive free water intake thyroid disease evaluation to date: TSH okay cortisol acceptable urine electrolytes non-prerenal SPEP/UPEP pending serum/urine osmo noted already on fluid restriction - consider increasing this (but question if she would follow on discharge) could consider salt tabs initiation follow trend of repeat sodium levels (2) Urinary tract infection: Code(s): N39.0 - Urinary tract infection, site not specified Status: Acute Assessment and Plan: UA noted urine culture with Enterococcus on antibiotics (3) Tachycardia: Code(s): R00.0 - Tachycardia, unspecified Status: Acute Assessment and Plan: Cardiology following known history of atrial fibrillation element of SVT noted on metoprolol and diltiazem 14-day monitor on discharge (4) Atrial fibrillation: Code(s): I48.91 - Unspecified atrial fibrillation Status: Acute Assessment and Plan: rate control strategy on anticoagulation (5) Type 2 diabetes mellitus: Qualifiers: Diabetes mellitus complication status: with other specified complication Diabetes mellitus detention insulin use: without detention use Qualified Code(s): E11.69 - Type 2 diabetes mellitus with other specified complication Code(s): E11.9 - Type 2 diabetes mellitus without complications Status: Chronic Assessment and Plan: follow accu-cheks glycemic control per hospitalists Not opposed to discharge from renal perspective (as long as sodium remains relatively stable) if otherwise medically stable (with follow-up on pending tests given chronic nature of her hyponatremia) Not much else to add -- will continue to follow intermittently. Subjective Date/time seen: 10/07/23 11:27 Interval history: Follow-up for acute on chronic hyponatremia. Was apparently planned to be discharged today but had an episode of SVT -- this apparently resolved after performing Valsalva maneuvers x 2; she had complaints of shortness of breath and chest pain during the SVT episode which resolved with the rhythm was broken; discharge plan was held given this event; sodium levels seems relatively stable at this time. Exam Narrative: General: elderly but WD/WN fenale in NAD Heart: normal S1 and S2; no rub Lungs: clear to auscultation Abdomen: soft, nontender, nondistended, positive bowel sounds Extremities: no cyanosis or clubbing; no edema Skin: no rash Objective Data Vital Signs Vital Signs: Vital Signs Temp Pulse Resp BP Pulse Ox 10/07/23 11:08 85.5 F L 50 L 18 148/55 H 100 10/07/23 08:36 57 L 10/07/23 05:06 98.8 F 55 L 17 169/42 H 100 10/07/23 04:00 49 L 10/06/23 23:00 152/68 H 10/07/23 00:00 39 L 10/06/23 23:29 46 L 10/06/23 22:00 97.6 F 10/06/23 21:24 47 L 10/06/23 21:05 50 L 16 176/78 H 99 Intake/Output Intake/Output: Intake & Output 10/04/23 10/05/23 10/06/23 10/07/23 23:59 23:59 23:59 23:59 Intake Total 1314 6660 454 9241 Output Total 1950 650 700 600 Balance -636 620 -228 430 Meds/Results Medications: Active Medications Generic Name Dose Route Start Last Admin Trade Name Freq PRN Reason Stop Dose Admin Amoxicillin 500 mg 10/04/23 13:00 10/07/23 13:45 Amoxicillin 500 Mg Capsule PO 10/11/23 06:01 500 mg Q8HR TEO Administration Clopidogrel Bisulfate 75 mg 10/02/23 09:00 10/07/23 08:34 Clopidogrel Bisulfate 75 Mg Tablet PO 7
--- NOTE | 2023-10-07 11:27 | P.PNNP_ITS ---
Progress Note: A&P Assessment and Plan (1) Hyponatremia: Code(s): E87.1 - Hypo-osmolality and hyponatremia Status: Chronic Assessment and Plan: * acute on chronic * has been presen since at least 2020 * sodium seems to fluctuate anywhere from 124 - 136mmol/L * etiology no clear but appears asymptomatic * risk factors: * recent CVAs * PPI use * diabetes (and associated fluctuation blood sugars) * known history of excessive free water intake * thyroid disease * evaluation to date: * TSH okay * cortisol acceptable * urine electrolytes non-prerenal * SPEP/UPEP pending * serum/urine osmo noted * already on fluid restriction - consider increasing this (but question if she would follow on discharge) * could consider salt tabs initiation * follow trend of repeat sodium levels (2) Urinary tract infection: Code(s): N39.0 - Urinary tract infection, site not specified Status: Acute Assessment and Plan: * UA noted * urine culture with Enterococcus * on antibiotics (3) Tachycardia: Code(s): R00.0 - Tachycardia, unspecified Status: Acute Assessment and Plan: * Cardiology following * known history of atrial fibrillation * element of SVT noted * on metoprolol and diltiazem * 14-day monitor on discharge (4) Atrial fibrillation: Code(s): I48.91 - Unspecified atrial fibrillation Status: Acute Assessment and Plan: * rate control strategy * on anticoagulation (5) Type 2 diabetes mellitus: Qualifiers: Diabetes mellitus complication status: with other specified complication Diabetes mellitus fci insulin use: without regional intermodal truck driver use Qualified Code(s): E11.69 - Type 2 diabetes mellitus with other specified complication Code(s): E11.9 - Type 2 diabetes mellitus without complications Status: Chronic Assessment and Plan: * follow accu-cheks * glycemic control per hospitalists Not opposed to discharge from renal perspective (as long as sodium remains relatively stable) if otherwise medically stable (with follow-up on pending tests given chronic nature of her hyponatremia) Not much else to add -- will continue to follow intermittently. Subjective Date/time seen: 10/07/23 11:27 Interval history: Follow-up for acute on chronic hyponatremia. Was apparently planned to be discharged today but had an episode of SVT -- this apparently resolved after performing Valsalva maneuvers x 2; she had complaints of shortness of breath and chest pain during the SVT episode which resolved with the rhythm was broken; discharge plan was held given this event; sodium levels seems relatively stable at this time. Exam Narrative: General: elderly but WD/WN fenale in NAD Heart: normal S1 and S2; no rub Lungs: clear to auscultation Abdomen: soft, nontender, nondistended, positive bowel sounds Extremities: no cyanosis or clubbing; no edema Skin: no rash Objective Data Vital Signs Vital Signs: Vital Signs Temp Pulse Resp BP Pulse Ox 10/07/23 11:08 85.5 F L 50 L 18 148/55 H 100 10/07/23 08:36 57 L 10/07/23 05:06 98.8 F 55 L 17 169/42 H 100 10/07/23 04:00 49 L 10/06/23 23:00 152/68 H 10/07/23 00:00 39 L 10/06/23 23:29 46 L 10/06/23 22:00 97.6 F
[2023-10-07 12:13] LABS: Glucose Point of Care 174 mg/dl (65-105)
[2023-10-07] MEDS: METOPROLOL TARTRATE 50 MG TAB 100 MG PO ×2 (12:48→20:37)
--- NOTE | 2023-10-07 13:21 | ECG_ITS ---
Measurements Intervals [place] Rate: 54 P: 66 OR: 277 QRS: 6 QRSD: 113 T: -6 QT: 442 QTc: 421 Interpretive Statements SINUS BRADYCARDIA WITH FIRST DEGREE AV BLOCK LEFT VENTRICULAR HYPERTROPHY AND ST-T CHANGE [VOLTAGE CRITERIA PLUS ST/T ABNORMALITY] CONSIDER PREVIOUS INFERIOR INFARCTION ABNORMAL ECG COMPARED TO ECG 10/04/2023 09:20:36 SINUS BRADYCARDIA NOW PRESENT SINUS RHYTHM WITH FIRST-DEGREE AV BLOCK REPLACES ATRIAL FIBRILLATION Electronically Signed On 10-08-2023 13:03:18 STATUE CARVER by Eliseo Chery M.D.
[2023-10-07] MEDS: POTASSIUM CHLORIDE 20 MEQ ER TABLET PO (13:45)
[2023-10-07 13:50] LABS: Magnesium 1.5 mg/dL (1.6-2.3)
--- NOTE | 2023-10-07 13:57 | PC.NURSE ---
Patient HR elevated into the 190's. Cardiology called and STAT EKG, troponin, Magnesium, and PO potassium entered. VIDEO CAMERA OPERATOR in room. PO metoprolol given. Patient asked to attempt Valsalva maneuver to help break tachycardia. HR returned to mid 70's and sustained.
[2023-10-07 14:02] LABS: Troponin I < 0.012 ng/mL (0.000-0.034)
--- NOTE | 2023-10-07 14:25 | P.PNIM_ITS ---
Progress Note: A&P Assessment and Plan (1) Unresponsive episode: Code(s): R40.4 - Transient alteration of awareness Status: Acute Assessment and Plan: 10/02/23: * possibly related to infection vs. hyponatremia vs. BP elevation * previously had a normal EEG however remains on Keppra * neurologic checks Q4 hours * UA positive for bacteria, start on Rocephin pending UA culture * Brain CT did not show any acute findings * BC pending 10/03/23: * Possibly due to hyponatremia versus urinary tract infection versus blood pressure elevation * Patient is alert oriented x3. She did have 1 bout of confusion through the night. * Continue neuro checks q.4 hours * Urine cultures pending * Blood culture showing no growth 10/04/23: * Na+ 127 today * Urine culture showing enterococcus species on preliminary * Blood cultures showing no growth to date * Continue neuro checks. 10/05/23: * Remains alert and oriented x4 * Na+ 130 today * Urine culture showing enterococcus species on final report, patient started on Amoxicillin oral yesterday * Blood cultures still showing no growth * Continue neuro checks. 10/06/23: * Na+ 127 today * Blood cultures showing no growth 10/07/23: * Na+ 131 * Blood cultures x2 showing no growth on final read (2) Hyponatremia: Code(s): E87.1 - Hypo-osmolality and hyponatremia Status: Chronic Assessment and Plan: 10/02/23: * chronic on acute * urine sodium 46, will check cortisol random with labs in am * for now, 2L fluid restriction as this may be SIADH * consider consult to nephrology * d/c IVF, up to 126 from 124 from admission * continue to monitor 10/03/23: * Sodium level 129 today * Continue fluid restriction * Urine osmolarity and serum osmolarity pending * Will get Nephrology on board for management of electrolyte imbalance 10/04/23: * Na+ level 127 today * Continue with 2L fluid restriction * Urine Na+ 46, Urine creatinine 38.2 * Urine osmolarity and serum osmolarity pending. * Nephrology consulted for continued management of hyponatremia which could potentially be SIADH or cerebral salt wasting syndrome post stroke. 10/05/23: * Na+ 130 today * Continue with 2L fluid restriction * Urine Na+ 46, Urine creatinine 38.2, Urine osmolarity 210, serum osmolarity 270. * Nephrology seen and following, sodium level has been chronically low likely due to multiple co-morbidities and her recent CVA insulting it further. * [place]/Lambda light chain and protein electrophoresis routine results pending 10/06/23: * Na+ 127 today * No change to current treatment plan, still awaiting lab results * Nephrology following. 10/07/23: * Na+ 131 * No change to current treatment plan (3) Type 2 diabetes mellitus: Qualifiers: Diabetes mellitus complication status: with other specified complication Diabetes mellitus mcfp insulin use: without intermodal customer service use Qualified Code(s): E11.69 - Type 2 diabetes mellitus with other specified complication Code(s): E11.9 - Type 2 diabetes mellitus without complications Status: Chronic Assessment and Plan: 10/02/23: * home insulin, AccuCheck and hypoglycemic protocol 10/03/23: * Blood sugars ranging 133-146 * Continue with current treatment plan 10/05/23: * No change to current treatment plan (4) Tachycardia: Code(s): R00.0 - Tachycardia, unspecified Status: Acute Assessment and Plan: 10/02/23: * new onset this morning evelina
--- NOTE | 2023-10-07 14:25 | PM.IMPN ---
Progress Note: A&P Assessment and Plan (1) Unresponsive episode: Code(s): R40.4 - Transient alteration of awareness Status: Acute Assessment and Plan: 10/02/23: possibly related to infection vs. hyponatremia vs. BP elevation previously had a normal EEG however remains on Keppra neurologic checks Q4 hours UA positive for bacteria, start on Rocephin pending UA culture Brain CT did not show any acute findings BC pending 10/03/23: Possibly due to hyponatremia versus urinary tract infection versus blood pressure elevation Patient is alert oriented x3. She did have 1 bout of confusion through the night. Continue neuro checks q.4 hours Urine cultures pending Blood culture showing no growth 10/04/23: Na+ 127 today Urine culture showing enterococcus species on preliminary Blood cultures showing no growth to date Continue neuro checks. 10/05/23: Remains alert and oriented x4 Na+ 130 today Urine culture showing enterococcus species on final report, patient started on Amoxicillin oral yesterday Blood cultures still showing no growth Continue neuro checks. 10/06/23: Na+ 127 today Blood cultures showing no growth 10/07/23: Na+ 131 Blood cultures x2 showing no growth on final read (2) Hyponatremia: Code(s): E87.1 - Hypo-osmolality and hyponatremia Status: Chronic Assessment and Plan: 10/02/23: chronic on acute urine sodium 46, will check cortisol random with labs in am for now, 2L fluid restriction as this may be SIADH consider consult to nephrology d/c IVF, up to 126 from 124 from admission continue to monitor 10/03/23: Sodium level 129 today Continue fluid restriction Urine osmolarity and serum osmolarity pending Will get Nephrology on board for management of electrolyte imbalance 10/04/23: Na+ level 127 today Continue with 2L fluid restriction Urine Na+ 46, Urine creatinine 38.2 Urine osmolarity and serum osmolarity pending. Nephrology consulted for continued management of hyponatremia which could potentially be SIADH or cerebral salt wasting syndrome post stroke. 10/05/23: Na+ 130 today Continue with 2L fluid restriction Urine Na+ 46, Urine creatinine 38.2, Urine osmolarity 210, serum osmolarity 270. Nephrology seen and following, sodium level has been chronically low likely due to multiple co-morbidities and her recent CVA insulting it further. [place]/Lambda light chain and protein electrophoresis routine results pending 10/06/23: Na+ 127 today No change to current treatment plan, still awaiting lab results Nephrology following. 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 Qualified Code(s): E11.69 - Type 2 diabetes mellitus with other specified complication Code(s): E11.9 - Type 2 diabetes mellitus without complications Status: Chronic Assessment and Plan: 10/02/23: home insulin, AccuCheck and hypoglycemic protocol 10/03/23: Blood sugars ranging 133-146 Continue with current treatment plan 10/05/23: No change to current treatment plan (4) Tachycardia: Code(s): R00.0 - Tachycardia, unspecified Status: Acute Assessment and Plan: 10/02/23: new onset this morning sustained in 140s, bradycardic on admission Repeat EKG 10/02 showed no changes from admission cardiology consulted restart home metoprolol and continue diltiazem monitor closely TSH w/ reflex ordered 10/03/23: Currently bradycardic in the 40's Cardiology on board and is following Patient currently on metoprolol 100 mg b.i.d. and diltiazem 180 mg TSH 1.990, PTH 281.3 10/05/23: No change to current treatment plan Patient will need a halter monitor upon discharge for 14 days. 10/07/23: Patient
[2023-10-07] MEDS: MAGNESIUM SULF 4 GM/WATER100ML 4 GM/100 ML BAG IVPB (14:53)
[2023-10-07 17:47] LABS: Glucose Point of Care 142 mg/dl (65-105)
[2023-10-07] MEDS: INSULIN GLARGINE (*BKC) 100 UNITS/ML 19 UNITS SUB-Q (20:37)
[2023-10-07] MEDS: INSULIN ASPART (*BKC) 100 UNITS/ML SUB-Q (20:37)
[2023-10-07 21:33] LABS: Glucose Point of Care 239 mg/dl (65-105)
--- NOTE | 2023-10-07 22:19 | PC.NURSE ---
rechecked bp 132/52 prior by reported to by SBp 184 prior to giving metoprolol 100 mg PO
[2023-10-08] VITALS (10 sets, daily range): BP systolic 152–163; BP diastolic 42–50; PULSE 43–55; RESP 16–20; TEMP 36.6–37.3; O2SAT 100
--- NOTE | 2023-10-08 03:42 | PC.NURSE ---
urine sample collected sent to lab
[2023-10-08 06:52] LABS: Basophils Absolute Auto 0.1 K/mm3 (0.0-0.1); Basophils Percent Auto 0.9 % (0.2-1.2); Eosinophils Absolute Auto 0.1 K/mm3 (0-0.3); Eosinophils Percent Auto 1.2 % (0-4.4); Hematocrit 31.8 % (37.0-47.0); Hemoglobin 10.4 g/dL (12.0-15.0); Immature Granulocyte Absolute 0.05 K/mm3 (0.00-0.031); Immature Granulocyte Percent A 0.5 % (0-0.5); Lymphocytes Absolute Auto 1.38 K/mm3 (0.9-3.2); Lymphocytes Percent Auto 14.7 % (18.3-44.2); Mean Corpuscular HGB Conc 32.7 g/dl (32-36); Mean Corpuscular Hemoglobin 28.1 pg (26-34); Mean Corpuscular Volume 85.9 fl (80-100); Mean Platelet Volume 9.7 fl (7.4-10.4); Monocytes Absolute Auto 0.8 K/mm3 (0.1-0.6); Monocytes Percent Auto 8.1 % (2.6-8.5); Neutrophils Percent Auto 74.6 % (45.5-73.1); Platelet Count Result 311 k/mm3 (150-375); Red Cell Distribution Width 14.4 % (11.5-14.5); White Blood Count 9.4 K/mm3 (4.5-10.0)
[2023-10-08] MEDS: AMOXICILLIN 500 MG CAPSULE PO ×3 (07:00→21:16)
[2023-10-08] MEDS: LEVOTHYROXINE SODIUM 100 MCG TABLET PO (07:00)
[2023-10-08 07:15] LABS: Alanine Aminotransferase 15 U/L (6-35); Albumin Level 3.9 g/dL (3.5-5.1); Alkaline Phosphatase 63 U/L (38-126); Anion Gap 11 mmol/L (8-16); Aspartate Amino Transferase 24 U/L (14-36); Bilirubin,Total 0.5 mg/dL (0.2-1.3); Blood Urea Nitrogen 10 mg/dL (7-17); Calcium 8.9 mg/dL (8.4-10.2); Carbon Dioxide 23 mmol/L (22-30); Chloride 96 mmol/L (98-107); Estimated CRCL calculation 62 ml/min; Estimated Glomerular Filt Rate > 60; Glucose 152 mg/dL (65-110); Sodium 130 mmol/L (137-145)
[2023-10-08 07:46] LABS: Glucose Point of Care 153 mg/dl (65-105)
[2023-10-08] MEDS: dilTIAZem HCL CD 180 MG CAP.24HR PO (08:22)
[2023-10-08] MEDS: RIVAROXABAN 15 MG TABLET PO (08:22)
[2023-10-08] MEDS: MULTIVITAMINS /C LUTEIN (CENTRUM SILVER) TABLET *BKC 1 TAB PO (08:22)
[2023-10-08] MEDS: PANTOPRAZOLE 40 MG TABLET PO (08:22)
[2023-10-08] MEDS: CLOPIDOGREL BISULFATE 75 MG TABLET PO (08:22)
[2023-10-08] MEDS: levETIRAcetam 250 MG TABLET PO ×2 (08:22→21:16)
[2023-10-08 11:29] LABS: Glucose Point of Care 253 mg/dl (65-105)
[2023-10-08] MEDS: INSULIN ASPART (*BKC) 100 UNITS/ML SUB-Q (12:01)
[2023-10-08 16:07] LABS: Albumin 3.5 g/dL (3.8-4.8); Alpha 1 Globulin 0.3 g/dL (0.2-0.3); Beta 1 Globulin 0.5 g/dL (0.4-0.6); Gamma Globulin 0.9 g/dL (0.8-1.7); Protein, Total 6.5 g/dL (6.1-8.1)
[2023-10-08 16:36] LABS: Glucose Point of Care 161 mg/dl (65-105)
--- NOTE | 2023-10-08 16:42 | P.PNIM_ITS ---
Progress Note: A&P Assessment and Plan (1) Unresponsive episode: Code(s): R40.4 - Transient alteration of awareness Status: Acute Assessment and Plan: 10/02/23: * possibly related to infection vs. hyponatremia vs. BP elevation * previously had a normal EEG however remains on Keppra * neurologic checks Q4 hours * UA positive for bacteria, start on Rocephin pending UA culture * Brain CT did not show any acute findings * BC pending 10/03/23: * Possibly due to hyponatremia versus urinary tract infection versus blood pressure elevation * Patient is alert oriented x3. She did have 1 bout of confusion through the night. * Continue neuro checks q.4 hours * Urine cultures pending * Blood culture showing no growth 10/04/23: * Na+ 127 today * Urine culture showing enterococcus species on preliminary * Blood cultures showing no growth to date * Continue neuro checks. 10/05/23: * Remains alert and oriented x4 * Na+ 130 today * Urine culture showing enterococcus species on final report, patient started on Amoxicillin oral yesterday * Blood cultures still showing no growth * Continue neuro checks. 10/06/23: * Na+ 127 today * Blood cultures showing no growth 10/07/23: * Na+ 131 * Blood cultures x2 showing no growth on final read 10/08/23: * Na+ 130 * no change to current treatment plan (2) Hyponatremia: Code(s): E87.1 - Hypo-osmolality and hyponatremia Status: Chronic Assessment and Plan: 10/02/23: * chronic on acute * urine sodium 46, will check cortisol random with labs in am * for now, 2L fluid restriction as this may be SIADH * consider consult to nephrology * d/c IVF, up to 126 from 124 from admission * continue to monitor 10/03/23: * Sodium level 129 today * Continue fluid restriction * Urine osmolarity and serum osmolarity pending * Will get Nephrology on board for management of electrolyte imbalance 10/04/23: * Na+ level 127 today * Continue with 2L fluid restriction * Urine Na+ 46, Urine creatinine 38.2 * Urine osmolarity and serum osmolarity pending. * Nephrology consulted for continued management of hyponatremia which could pot entially be SIADH or cerebral salt wasting syndrome post stroke. 10/05/23: * Na+ 130 today * Continue with 2L fluid restriction * Urine Na+ 46, Urine creatinine 38.2, Urine osmolarity 210, serum osmolarity 270. * Nephrology seen and following, sodium level has been chronically low likely due to multiple co-morbidities and her recent CVA insulting it further. * [place]/Lambda light chain and protein electrophoresis routine results pending 10/06/23: * Na+ 127 today * No change to current treatment plan, still awaiting lab results * Nephrology following. 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
--- NOTE | 2023-10-08 16:42 | PM.IMPN ---
Progress Note: A&P Assessment and Plan (1) Unresponsive episode: Code(s): R40.4 - Transient alteration of awareness Status: Acute Assessment and Plan: 10/02/23: possibly related to infection vs. hyponatremia vs. BP elevation previously had a normal EEG however remains on Keppra neurologic checks Q4 hours UA positive for bacteria, start on Rocephin pending UA culture Brain CT did not show any acute findings BC pending 10/03/23: Possibly due to hyponatremia versus urinary tract infection versus blood pressure elevation Patient is alert oriented x3. She did have 1 bout of confusion through the night. Continue neuro checks q.4 hours Urine cultures pending Blood culture showing no growth 10/04/23: Na+ 127 today Urine culture showing enterococcus species on preliminary Blood cultures showing no growth to date Continue neuro checks. 10/05/23: Remains alert and oriented x4 Na+ 130 today Urine culture showing enterococcus species on final report, patient started on Amoxicillin oral yesterday Blood cultures still showing no growth Continue neuro checks. 10/06/23: Na+ 127 today Blood cultures showing no growth 10/07/23: Na+ 131 Blood cultures x2 showing no growth on final read 10/08/23: Na+ 130 no change to current treatment plan (2) Hyponatremia: Code(s): E87.1 - Hypo-osmolality and hyponatremia Status: Chronic Assessment and Plan: 10/02/23: chronic on acute urine sodium 46, will check cortisol random with labs in am for now, 2L fluid restriction as this may be SIADH consider consult to nephrology d/c IVF, up to 126 from 124 from admission continue to monitor 10/03/23: Sodium level 129 today Continue fluid restriction Urine osmolarity and serum osmolarity pending Will get Nephrology on board for management of electrolyte imbalance 10/04/23: Na+ level 127 today Continue with 2L fluid restriction Urine Na+ 46, Urine creatinine 38.2 Urine osmolarity and serum osmolarity pending. Nephrology consulted for continued management of hyponatremia which could potentially be SIADH or cerebral salt wasting syndrome post stroke. 10/05/23: Na+ 130 today Continue with 2L fluid restriction Urine Na+ 46, Urine creatinine 38.2, Urine osmolarity 210, serum osmolarity 270. Nephrology seen and following, sodium level has been chronically low likely due to multiple co-morbidities and her recent CVA insulting it further. [place]/Lambda light chain and protein electrophoresis routine results pending 10/06/23: Na+ 127 today No change to current treatment plan, still awaiting lab results Nephrology following. 10/07/23: Na+ 131 No change to current treatment plan : sodium level 130 no change to current treatment plan (3) Type 2 diabetes mellitus: Qualifiers: Diabetes mellitus complication status: with other specified complication Diabetes mellitus correction insulin use: without correction use Qualified Code(s): E11.69 - Type 2 diabetes mellitus with other specified complication Code(s): E11.9 - Type 2 diabetes mellitus without complications Status: Chronic Assessment and Plan: 10/02/23: home insulin, AccuCheck and hypoglycemic protocol 10/03/23: Blood sugars ranging 133-146 Continue with current treatment plan 10/05/23: No change to current treatment plan (4) Tachycardia: Code(s): R00.0 - Tachycardia, unspecified Status: Acute Assessment and Plan: 10/02/23: new onset this morning sustained in 140s, bradycardic on admission Repeat EKG 10/02 showed no changes from admission cardiology consulted restart home metoprolol and continue diltiazem monitor closely TSH w/ reflex ordered 10/03/23: Currently bradycardic in the 40's Cardiology on board and is following Patient currently on metoprolol 100 mg b.i.d. and diltiazem 180 mg TSH 1.990, PTH 281
[2023-10-08 21:04] LABS: Glucose Point of Care 144 mg/dl (65-105)
[2023-10-08] MEDS: INSULIN GLARGINE (*BKC) 100 UNITS/ML 19 UNITS SUB-Q (21:12)
[2023-10-08] MEDS: ROSUVASTATIN 10 MG TABLET 30 MG PO (21:15)
[2023-10-09] VITALS (8 sets, daily range): BP systolic 159–163; BP diastolic 37–49; PULSE 36–68; RESP 16–22; TEMP 36.3–36.6; O2SAT 100
[2023-10-09 00:19] LABS: Kappa\\Lambda Light Chains 1.25 (0.26-1.65); Lambda Light Chain 17.8 mg/L (5.7-26.3)
[2023-10-09] MEDS: AMOXICILLIN 500 MG CAPSULE PO ×2 (05:12→15:00)
[2023-10-09] MEDS: LEVOTHYROXINE SODIUM 100 MCG TABLET PO (05:12)
[2023-10-09 06:59] LABS: Basophils Absolute Auto 0.1 K/mm3 (0.0-0.1); Basophils Percent Auto 0.9 % (0.2-1.2); Eosinophils Absolute Auto 0.1 K/mm3 (0-0.3); Eosinophils Percent Auto 0.9 % (0-4.4); Hematocrit 32.1 % (37.0-47.0); Hemoglobin 10.3 g/dL (12.0-15.0); Immature Granulocyte Absolute 0.03 K/mm3 (0.00-0.031); Immature Granulocyte Percent A 0.4 % (0-0.5); Lymphocytes Absolute Auto 1.54 K/mm3 (0.9-3.2); Lymphocytes Percent Auto 19.9 % (18.3-44.2); Mean Corpuscular HGB Conc 32.1 g/dl (32-36); Mean Corpuscular Hemoglobin 27.5 pg (26-34); Mean Corpuscular Volume 85.8 fl (80-100); Mean Platelet Volume 9.5 fl (7.4-10.4); Monocytes Absolute Auto 0.6 K/mm3 (0.1-0.6); Monocytes Percent Auto 7.5 % (2.6-8.5); Neutrophils Absolute Auto 5.5 K/mm3 (1.3-6.7); Neutrophils Percent Auto 70.4 % (45.5-73.1); Platelet Count Result 301 k/mm3 (150-375); Red Blood Count 3.74 M/mm3 (4.2-5.4); Red Cell Distribution Width 14.2 % (11.5-14.5); White Blood Count 7.8 K/mm3 (4.5-10.0)
[2023-10-09 07:18] LABS: Alanine Aminotransferase 14 U/L (6-35); Albumin Level 3.9 g/dL (3.5-5.1); Alkaline Phosphatase 61 U/L (38-126); Anion Gap 11 mmol/L (8-16); Aspartate Amino Transferase 28 U/L (14-36); Bilirubin,Total 0.5 mg/dL (0.2-1.3); Blood Urea Nitrogen 12 mg/dL (7-17); Calcium 9.1 mg/dL (8.4-10.2); Carbon Dioxide 26 mmol/L (22-30); Chloride 94 mmol/L (98-107); Estimated CRCL calculation 54 ml/min; Estimated Glomerular Filt Rate > 60; Glucose 162 mg/dL (65-110); Potassium 3.9 mmol/L (3.4-5.0); Sodium 131 mmol/L (137-145)
[2023-10-09 07:42] LABS: Glucose Point of Care 160 mg/dl (65-105)
[2023-10-09] MEDS: levETIRAcetam 250 MG TABLET PO (08:47)
[2023-10-09] MEDS: MULTIVITAMINS /C LUTEIN (CENTRUM SILVER) TABLET *BKC 1 TAB PO (08:47)
[2023-10-09] MEDS: RIVAROXABAN 15 MG TABLET PO (08:47)
[2023-10-09] MEDS: CLOPIDOGREL BISULFATE 75 MG TABLET PO (08:47)
[2023-10-09] MEDS: dilTIAZem HCL CD 180 MG CAP.24HR PO (08:47)
[2023-10-09] MEDS: PANTOPRAZOLE 40 MG TABLET PO (08:47)
[2023-10-09] MEDS: METOPROLOL TARTRATE 50 MG TAB 100 MG PO (08:50)
--- NOTE | 2023-10-09 10:23 | PCNWS ---
Weekly nutritional screen. Patient is tolerating current diabetic diet with adequate intake 100% all meals. No weight loss reported. No nutritional needs at this time.
[2023-10-09 12:05] LABS: Glucose Point of Care 208 mg/dl (65-105)
[2023-10-09] MEDS: INSULIN ASPART (*BKC) 100 UNITS/ML SUB-Q (12:22)
--- NOTE | 2023-10-09 13:19 | PM.PNCARD ---
Progress Note: A&P Assessment and Plan (1) Tachycardia: Code(s): R00.0 - Tachycardia, unspecified Status: Acute Assessment and Plan: Tele shows what appears to be SVT. Has known paroxysmal atrial fibrillation. Has been in and out of sinus rhythm during her hospitalization, but currently in sinus rhythm with ratein the high 40's - 50's. A.M. dose of metoprolol was held yesterday because of bradycardia overnight. Decrease metoprolol to 75mg BID. Continue Diltiazem 180mg. Discharge home with a 14 day monitor (order placed). (2) Acute hyponatremia: Code(s): E87.1 - Hypo-osmolality and hyponatremia Status: Acute Assessment and Plan: Management and workup as per primary team (3) Transient confusion: Code(s): R41.0 - Disorientation, unspecified Status: Acute Assessment and Plan: Management and workup as per primary team (4) Coronary artery disease: Code(s): I25.10 - Atherosclerotic heart disease of [place] coronary artery without angina pectoris Status: Acute Assessment and Plan: Stable. Continue Plavix and statin. (5) Atrial fibrillation: Code(s): I48.91 - Unspecified atrial fibrillation Status: Acute Assessment and Plan: Beta romeo and Diltiazem as noted above. Continue Xarelto Subjective Date/time seen: 10/09/23 13:19 Interval history: Reason for visit: Tachycardia HPI: We are consulted for tachycardia. This is a 77 year old female with coronary artery disease with STEMI in May 2023 s/p PCI to the LAD, paroxysmal atrial fibrillation, CVA, diabetes who presented to [facility] with weakness, confusion. Daughter is at bedside who provides additional history. On Sunday, patient's other daughter found her to be confused and sleepy. This was noted again on day of admission by the daughter present in the room. Daughter states that she went to patient's house and she was unresponsive, she would open her eyes when she called her mom's name, but would fall back asleep quickly. Patient was admitted to the hospital in August 2023 for hyponatremia and UTI after presenting with transient confusion. She has been noted to be hypertensive this admission. This morning, patient is awake and alert and conversive, not confused. She reports feeling tired. She was noted to be tachycardic this morning. Patient reports having palpitations at home occasionally. Date of service 10/03: Awake, alert, sitting up at bedside eating lunch. Tele showed some SVT earlier today -- patient denies any palpitations tonight. Reports sleeping soundly overnight, although she states that when she woke up, she thought she was at home. Had some lightheadedness when standing up and walking to the bathroom. Date of service 10/05/23: Feeling well today. Complaining of constipation. She remains in atrial fibrillation with intermittent tachycardia but generally rate is well controlled. No shortness of breath or chest pain. She does report palpitations after she got up to use the bathroom earlier this morning. Date of service 10/09/23: Telemetry shows predominantly sinus bradycardia/sinus rhythm. She did have some SVT this morning that was brief and self-limiting. Overnight her telemetry shows some sinus bradycardia with rates in the mid 30's transiently but generally in the high 40's. Review of Systems Review of Systems: No chest pain, palpitations, shortness of breath All systems reviewed & are unremarkable except as noted in HPI and below Exam Const: General: comfortable and no acute distress HENMT: Mouth: Yes dry mucous membranes Eyes: General: appearance normal, both eyes and all related structures Sclera: sclerae normal Neck: Neck: supple Resp: Effort & Inspection: normal respiratory effort Auscultation: clear to auscultation bilaterally Cardio: Rate: regular rate and bradycardic Rhythm: regular rhythm Heart sounds: no murmurs Skin: General ski
[2023-10-13 01:34] LABS: Creatinine, Random Urine 59 mg/dL (20-275); Total Protein/Creatinine Ratio 203 mg/g creat (24-184)
== END 2023-10-09 15:35 | disposition home health service (06) | DRG 690 ==
LOC: ANHED 17:05 → ANH3MEDSUR 17:51
PROVIDERS: Internal Medicine Nephrology; Nurse Practitioner; Physician Assistant; Admitting Provider Hospitalist; Emergency Provider Student in an Organized Health Care Education/Training Program; PCP Physician Assistant; Visit Provider Nurse Practitioner Acute Care
DX: N39.0 Urinary tract infection, site not specified (principal); E87.1 Hypo-osmolality and hyponatremia; I47.10 Supraventricular tachycardia, unspecified; R40.4 Transient alteration of awareness; B95.2 Enterococcus as the cause of diseases classified elsewhere; R50.9 Fever, unspecified; R55 Syncope and collapse; I48.0 Paroxysmal atrial fibrillation; Z20.822 Contact with and (suspected) exposure to COVID-19; I25.10 Atherosclerotic heart disease of native coronary artery without angina pectoris; E03.9 Hypothyroidism, unspecified; I10 Essential (primary) hypertension; E11.9 Type 2 diabetes mellitus without complications; R00.1 Bradycardia, unspecified; E87.6 Hypokalemia; Z86.73 Personal history of transient ischemic attack (TIA), and cerebral infarction without residual deficits; Z79.4 Long term (current) use of insulin; I25.2 Old myocardial infarction; Z87.442 Personal history of urinary calculi; Z90.710 Acquired absence of both cervix and uterus; Z90.49 Acquired absence of other specified parts of digestive tract; Z87.891 Personal history of nicotine dependence
CPT/HCPCS: 36415; 70450; 71045; 80048; 80053; 81003; 82533; 82570; 82607; 82948; 83605; 83735; 83883; 83930; 83935; 84155; 84156; 84165; 84166; 84300; 84443; 84484; 85025; 85027; 85610; 85730; 86140; 87040; 87077; 87086; 87088; 87186; 87637; 93005; 96360; 97110; 97116; 97161; 97165; 99285; A9270; J0696; J1815; J3475; J7030

== ENCOUNTER 2023-10-15 10:24 | Inpatient (IN) | payer MEDICARE, OTHER, SELFPAY ==
[2023-10-15] VITALS (10 sets, daily range): BP systolic 153–225; BP diastolic 44–70; PULSE 52–63; RESP 11–18; TEMP 36.4–36.6; O2SAT 98–100; BMI 27.8
--- NOTE | ~2023-10-15 | XR_ITS ---
EXAMINATION: XR chest 2V DATE: 10/15/2023 11:26 INDICATION: Weakness TECHNIQUE: AP and lateral views of the chest are obtained. COMPARISON: 10/01/2023 FINDINGS: The lungs are free of acute opacities. No pleural effusion or pneumothorax. The cardiomedia stinal silhouette is normal. There is mild thoracic spondylosis. Coronary artery stents are noted. Th ere is moderate osteoarthritis of the shoulders. IMPRESSION: 1. No acute cardiopulmonary abnormality. Reviewed, dictated and finalized at location B. INTMENT MANAGER
--- NOTE | ~2023-10-15 | CT_ITS ---
EXAMINATION: CT brain wo con INDICATION: Altered mental status COMPARISON: 10/01/2023 TECHNIQUE: Standard unenhanced head CT. The dose-length product (DLP) was 605.33 mGy-cm. The mA was a djusted according to patient size. Iterative reconstruction technique was employed. FINDINGS: No acute intraparenchymal hemorrhage. No evidence of mass lesion. There is chronic encephal omalacia in the right temporal and occipital lobes. Interval infarct of the left basal ganglia is als o noted. No evidence of acute infarction. There is mild periventricular and subcortical hypodensity p robably related to small vessel ischemic disease. There is mild prominence of the sulci and ventricle s related to cerebral atrophy. Intracranial calcified cerebral atherosclerosis is noted. No extra-axi al collections. No mass effect or midline shift. Changes in the globes are likely from ocular lens davis rgery. The visualized sinuses and mastoid air cells are well aerated. IMPRESSION: 1. Areas of prior infarction without acute intracranial abnormality. 2. Age related findings. Reviewed, dictated and finalized at location B. ELAIN ENAMELING SUPERVISOR
--- NOTE | ~2023-10-15 | MR_ITS ---
EXAMINATION: MR brain/brain stem wo/w con DATE: 10/16/2023 09:46 INDICATION: Transient ischemic attack. TECHNIQUE: Magnetic resonance imaging (MRI) of the brain and brainstem was performed without and with 14 mL MultiHance intravenous contrast. COMPARISON: Brain MRI 08/17/2023 FINDINGS: There is an old infarct involving right temporal occipital region in the expected distribut ion of right posterior cerebral artery. There is an old infarct in right temporal lobe in the expecte d distribution of right middle cerebral artery. There are scattered areas of nonspecific increased T2 -weighted signal intensity in the cerebral white matter, which is within normal limits for the patien t's age. There is an old lacunar infarct in the naheed. There is a small old infarct in left temporal l obe. There is no intracranial hemorrhage, acute infarction, or abnormal intracranial mass lesion. The re is ex vacuo dilatation of trigone of right lateral ventricle. There are likely changes of ocular l ens replacement surgeries. There are old fracture deformities of left zygomaticomaxillary complex. Th e mastoid air cells are normal. IMPRESSION: 1. Old infarcts in the brain. Reviewed, dictated and finalized at location A. CTOR CARD
--- NOTE | 2023-10-15 10:39 | ECG_ITS ---
Measurements Intervals [place] Rate: 55 P: 57 AL: 225 QRS: 6 QRSD: 116 T: -6 QT: 454 QTc: 435 Interpretive Statements SINUS BRADYCARDIA WITH FIRST DEGREE AV BLOCK LEFT VENTRICULAR HYPERTROPHY AND ST-T CHANGE [VOLTAGE CRITERIA PLUS ST/T ABNORMALITY] ABNORMAL ECG COMPARED TO ECG 10/07/2023 13:34:01 NO SIGNIFICANT CHANGES Electronically Signed On 10-15-2023 12:50:52 [employer]OR [employer]OVERING INST[employer]ER by Ba Decker M.D.
[2023-10-15] MEDS: hydrALAZINE HCL 20 MG/ML VIAL 10 MG IV PUSH (11:01)
[2023-10-15 11:06] LABS: Basophils Absolute Auto 0.1 K/mm3 (0.0-0.1); Basophils Percent Auto 0.7 % (0.2-1.2); Eosinophils Absolute Auto 0.1 K/mm3 (0-0.3); Eosinophils Percent Auto 0.8 % (0-4.4); Hematocrit 34.8 % (37.0-47.0); Hemoglobin 11.4 g/dL (12.0-15.0); Immature Granulocyte Absolute 0.03 K/mm3 (0.00-0.031); Immature Granulocyte Percent A 0.3 % (0-0.5); Lymphocytes Absolute Auto 1.99 K/mm3 (0.9-3.2); Lymphocytes Percent Auto 21.9 % (18.3-44.2); Mean Corpuscular HGB Conc 32.8 g/dl (32-36); Mean Corpuscular Volume 85.5 fl (80-100); Mean Platelet Volume 9.2 fl (7.4-10.4); Monocytes Absolute Auto 0.8 K/mm3 (0.1-0.6); Monocytes Percent Auto 9.3 % (2.6-8.5); Neutrophils Absolute Auto 6.1 K/mm3 (1.3-6.7); Platelet Count Result 328 k/mm3 (150-375); Red Blood Count 4.07 M/mm3 (4.2-5.4); Red Cell Distribution Width 14.1 % (11.5-14.5); White Blood Count 9.1 K/mm3 (4.5-10.0)
[2023-10-15 11:12] LABS: Appearance Urine Clear (Clear); Bacteria Urine None Seen /hpf; Bilirubin Urine Negative (Negative); Blood Urine Negative (Negative); Color Urine Yellow (Yellow); Glucose Urine UA Negative (Negative); Ketones Urine Negative (Negative); Leukocyte Esterase Ur Trace LEU/UL (Negative); Nitrate Urine Negative (Negative); Non Pathogenic Casts 0-2; Protein Urine 1+ mg/dL (Negative); RBC Urine 0-2 /hpf (0-2); Specific Grav Ur 1.007 (1.001-1.035); Squamous Epithelial Cell Urine None seen /hpf (Few); Urobilinogen Urine 0.2 mg/dL (<2.0); WBC Urine 0-5 /hpf; pH Urine 7.5 (5.0-9.0)
[2023-10-15 11:18] LABS: Add Urine Microscopic? YES
[2023-10-15 11:19] LABS: Alanine Aminotransferase 14 U/L (6-35); Albumin Level 4.4 g/dL (3.5-5.1); Alkaline Phosphatase 67 U/L (38-126); Anion Gap 9 mmol/L (8-16); Aspartate Amino Transferase 25 U/L (14-36); Bilirubin,Total 0.7 mg/dL (0.2-1.3); Blood Urea Nitrogen 13 mg/dL (7-17); Calcium 9.8 mg/dL (8.4-10.2); Carbon Dioxide 25 mmol/L (22-30); Chloride 99 mmol/L (98-107); Estimated CRCL calculation 53 ml/min; Estimated Glomerular Filt Rate > 60; Glucose 149 mg/dL (65-110); Potassium 3.9 mmol/L (3.4-5.0); Sodium 133 mmol/L (137-145)
[2023-10-15 11:27] LABS: INR 1.9; Partial Thromboplastin Time 32.9 SECONDS (22.3-36.8); Prothrombin Time 22.8 Seconds (11.1-14.7)
[2023-10-15 11:29] LABS: Glucose Point of Care 141 mg/dl (65-105)
--- NOTE | 2023-10-15 13:23 | ED.AMS ---
HPI - Altered Mental Status General Chief Complaint: Altered Mental Status Stated Complaint: AMS Time Seen by Provider: 10/15/23 10:27 History of Present Illness HPI narrative: Patient is a 77-year-old female who presents ER with altered mental status / confusion. Patient has history of CVA and AL over the last 6 months. Patient reports that she was more despondent this morning than she typically is. She is oriented x3 at this time. She has no facial droop or slurred speech. No drift in the arms or legs. She has no infectious symptoms. After granddaughter showed up she reports that speaking to the patient today that slurred speech was very much present and patient was more confused than she has her baseline. Apparently since the patient's stroke she has had intermittent forgetfulness that is now her norm but patient was markedly worse this morning. Patient's current improved. It is noted that the patient's blood pressure was in the 200s systolic at home but it is also reported that that is typical for her. Related Data Home Medications Medication Instructions Recorded Confirmed docusate sodium 100 mg capsule 100 mg PO DAILY PRN Constipation 05/13/23 10/15/23 insulin glargine 100 unit/mL (3 19 unit subcut QPM 05/13/23 10/15/23 mL) subcutaneous pen (Lantus Solostar U-100 Insulin) multivitamin-ferrous 1 tablet PO DAILY 05/13/23 10/15/23 fumarate-folic acid 18 mg-400 mcg tablet (Centrum Women) sitagliptin phosphate 100 mg 100 mg PO DAILY 05/13/23 10/15/23 tablet (Januvia) levothyroxine 100 mcg tablet 100 mcg PO DAILY 05/22/23 10/15/23 (Synthroid) pantoprazole 40 mg tablet,delayed 40 mg PO DAILY 05/22/23 10/15/23 release rivaroxaban 15 mg tablet (Xarelto) 15 mg PO DAILY 05/22/23 10/15/23 polyethylene glycol 3350 17 gram 17 g PO QAM PRN Constipation 08/16/23 10/15/23 oral powder packet (Miralax) sertraline 25 mg tablet 25 mg PO DAILY 10/15/23 10/15/23 Allergies Allergy/AdvReac Type Severity Reaction Status Date / Time atorvastatin [From Lipitor] Allergy Hives Verified 10/01/23 12:36 propoxyphene [From Darvon] Allergy Unknown Verified 10/01/23 12:36 glipizide AdvReac Dizziness Verified 10/01/23 12:36 metformin AdvReac Other Verified 10/01/23 12:36 Streptomyces Albus Allergy Hives Uncoded 10/01/23 12:36 [facility] Past Medical History Medical History CVA (cerebral vascular accident) Hypertension Hypothyroidism Kidney stones Myocardial infarction Type 2 diabetes mellitus Surgical History Surgical History H/O: hysterectomy History of bladder suspension procedure History of cataract surgery History of lithotripsy Hx of appendectomy Previous back surgery x2 S/P oophorectomy Family History Family History Mother Angina concurrent with and due to arteriosclerosis of coronary artery Heart disease CAD (coronary artery disease) Sibling Heart disease CAD (coronary artery disease) Social History Social History Social History: Currently lives at home alone. Daughter and granddaughter come by the house often to help. Surrogate decision maker: Gail Haas, daughter. Code Status: Full Code Smoking packs per day: 0.5 Smoking cigarettes per day: 10.0 Years smoked: 15 Smoking pack-years: 7.50 Smoking status: Former smoker Tobacco type: cigarettes Alcohol intake: never Substance use: never Substance use type: does not use Lack of Transportation: No Lack of Food: Never True Current Housing: I Have Housing Concerned About Future Housing: No Difficulty Paying Gas/Electric Bills: No Difficulty Paying for Meds: No Currently Unemployed: No Education: High School Diploma/GED Difficulty w/ Childcare or Family Care: No Living arrangements: alone O
--- NOTE | 2023-10-15 17:22 | PM.IMHP ---
H&P: HPI History of Present Illness Date/Time: 10/15/23 16:00 Chief Complaint: Altered mental status. Narrative: This is a 77-year-old female with history of stroke, possible seizure on levetiracetam, coronary artery disease with history of [place], paroxysmal atrial fibrillation on chronic anticoagulation, insulin-dependent type 2 diabetes mellitus, hypertension, chronic hyponatremia, and hypothyroidism who presented to the emergency department via EMS from home for evaluation of altered mental status. The patient provides the following history. Her granddaughter provides additional information, with the patient's permission. She is known to myself and the hospitalist service from a recent admission several weeks ago at which time she was admitted with hyponatremia and bradycardia following an unresponsive episode. She was seen by Cardiology and they recommended continuing diltiazem and decreasing metoprolol dose. She was discharged on event monitor and continues to have that on at this time. According to the granddaughter, she has been doing okay. The patient lives alone but family members check on her multiple times a day and they are responsible for giving her her medications. Yesterday she seemed to be in her usual state of health. This morning granddaughter called to check on her and she told her granddaughter that she felt as though her heart was beating slowly and she went silent. Granddaughter immediately went to the home and found the patient supine in bed, awake but not really making sense. Her speech was a bit slurred and she seemed more confused than usual. She was brought into the emergency department and by the time she arrived her slurred speech had improved and at the time my evaluation she is alert and oriented x3. Currently she complains of a headache. She denies fever, chills, sweats, cold and flu symptoms, chest pain, pleuritic pain, shortness a breath, nausea, vomiting, diarrhea, and dysuria. In the ED: She was afebrile on arrival. Pulse has been persistently in the 50s. Blood pressure has been as high as 225/68. Brain CT showed no acute findings. Labs were reviewed and they were pretty unremarkable and stable compared to recent lab draws. She was given a dose of IV hydralazine 10 mg x 1 with some improvement in her blood pressures. she is being admitted in this setting for further treatment and evaluation. Review of Systems Review of Systems: Twelve systems were reviewed and are negative except for as per HPI. [facility] Past Medical History Medical History (Updated 10/15/23 @ 22:37 by Aruna Moya PA-C) Cerebrovascular accident Chronic anticoagulation Hypertension Hypothyroidism Kidney stones Myocardial infarction Paroxysmal atrial fibrillation Type 2 diabetes mellitus Surgical History Surgical History (Updated 10/15/23 @ 22:35 by Aruna Moya PA-C) History of appendectomy History of back surgery History of bladder suspension procedure History of cataract surgery History of hysterectomy History of lithotripsy History of oophorectomy Family History Family History Mother Angina concurrent with and due to arteriosclerosis of coronary artery Heart disease CAD (coronary artery disease) Sibling Heart disease CAD (coronary artery disease) Social History Social History (Updated 10/15/23 @ 22:35 by Aruna Moya PA-C) Social History: Currently lives at home alone. Daughter and granddaughter come by the house often to help. Surrogate decision maker: Gail Haas, daughter. Code Status: Full Code Smoking packs per day: 0.5 Smoking cigarettes per day: 10.0 Years smoked: 15 Smoking pack-years: 7.50 Smoking status: Former smoker Tobacco type: cigarettes Alcohol intake: never Substance use: never Substance use type: does not use Lack of Transportation: No Lack of Food: Never True Current Housing: I
--- NOTE | 2023-10-15 17:50 | ADMGEN ---
This patient, Francy Porter, was admitted to 3 [facility] Surg Room 307-01 AT 1640. Patient/family oriented to hospital policies and general routines including ID bracelet, bed and alarms, visiting hours, pain management, procedures, bathroom and other care routines, personal items, smoking policy, room service/diet, and visiting hours. Information on how to activate the Rapid Response Team has been discussed. Patient/Family are encouraged to report perceived risks to care and to ask questions if they do not understand what they are told or what they should do.
[2023-10-15 21:06] LABS: Glucose Point of Care 216 mg/dl (65-105)
[2023-10-16] VITALS (14 sets, daily range): BP systolic 141–169; BP diastolic 49–78; PULSE 41–156; RESP 14–18; TEMP 35.9–36.6; O2SAT 100
[2023-10-16] MEDS: METOPROLOL TARTRATE INJ 5 MG/5 ML VIAL IV PUSH ×2 (05:49→06:40)
[2023-10-16] MEDS: LEVOTHYROXINE SODIUM 100 MCG TABLET PO (05:49)
[2023-10-16 07:38] LABS: Hematocrit 37.2 % (37.0-47.0); Mean Corpuscular HGB Conc 32.3 g/dl (32-36); Mean Corpuscular Hemoglobin 28.1 pg (26-34); Mean Corpuscular Volume 87.1 fl (80-100); Mean Platelet Volume 9.8 fl (7.4-10.4); Platelet Count Result 367 k/mm3 (150-375); Red Blood Count 4.27 M/mm3 (4.2-5.4); Red Cell Distribution Width 14.4 % (11.5-14.5); White Blood Count 10.5 K/mm3 (4.5-10.0)
[2023-10-16] MEDS: METOPROLOL TARTRATE 25 MG TABLET 75 MG PO (07:42)
[2023-10-16] MEDS: dilTIAZem HCL CD 180 MG CAP.24HR PO (07:42)
[2023-10-16 07:59] LABS: Anion Gap 14 mmol/L (8-16); Blood Urea Nitrogen 15 mg/dL (7-17); Calcium 9.9 mg/dL (8.4-10.2); Carbon Dioxide 21 mmol/L (22-30); Chloride 96 mmol/L (98-107); Estimated CRCL calculation 47 ml/min; Estimated Glomerular Filt Rate > 60; Glucose 219 mg/dL (65-110); Magnesium 1.8 mg/dL (1.6-2.3); Potassium 3.8 mmol/L (3.4-5.0); Sodium 131 mmol/L (137-145)
[2023-10-16 08:00] LABS: Glucose Point of Care 237 mg/dl (65-105)
--- NOTE | 2023-10-16 08:35 | ECG_ITS ---
Measurements Intervals [place] Rate: 133 P: 184 [place]: 126 QRS: 22 QRSD: 109 T: -74 QT: 299 QTc: 446 Interpretive Statements SINUS TACHYCARDIA LEFT VENTRICULAR HYPERTROPHY AND ST-T CHANGE [VOLTAGE CRITERIA PLUS ST/T ABNORMALITY] ABNORMAL ECG COMPARED TO ECG 10/15/2023 11:00:30 SINUS TACHYCARDIA NOW PRESENT Electronically Signed On 10-17-2023 10:24:58 PIPE WRAPPING MACHINE OPERATOR by Ba Decker M.D.
[2023-10-16] MEDS: INSULIN ASPART (*BKC) 100 UNITS/ML SUB-Q ×2 (10:07→12:39)
[2023-10-16] MEDS: RIVAROXABAN 15 MG TABLET PO (10:09)
[2023-10-16] MEDS: ROSUVASTATIN 10 MG TABLET 30 MG PO (10:09)
[2023-10-16] MEDS: levETIRAcetam 250 MG TABLET PO ×2 (10:09→20:38)
[2023-10-16] MEDS: PANTOPRAZOLE 40 MG TABLET PO (10:09)
[2023-10-16] MEDS: MULTIVITAMINS /C LUTEIN (CENTRUM SILVER) TABLET *BKC 1 TAB PO (10:10)
[2023-10-16] MEDS: CLOPIDOGREL BISULFATE 75 MG TABLET PO (10:10)
[2023-10-16] MEDS: SERTRALINE HCL 25 MG TABLET PO (10:10)
[2023-10-16 11:33] LABS: Glucose Point of Care 298 mg/dl (65-105)
--- NOTE | 2023-10-16 12:36 | WPDNEURCNPN ---
Assessment and Plan Assessment and plan (1) Paroxysmal atrial fibrillation: Code(s): I48.0 - Paroxysmal atrial fibrillation Status: Acute Plan Is status post multiple strokes 2. Change in the mental status with history of bradycardia and paroxysmal atrial fibrillation in the past patient is already on Plavix, diabetic treatment, she is receiving Plavix 75mg daily in addition to Synthroid 100mcg daily as well because the low T4 and also Crestor 30mg daily. Considering multiple infarcts in different distributions she needs to stay on aspirin and Plavix and also with good care of the blood pressure and diabetes will discuss with the patient. Consult date: 10/16/23 HPI: Francy Porter is a 77 year old female admitted to the hospital through the emergency room for the complaints of change in the mental status with confusion in addition to the ongoing history of cerebrovascular accident, MRI about 6 months ago reportedly patient was more despondent it this morning usually she is oriented x3 and she was oriented x3 at the time of initial visit in the ER also she was not noted to have in facial droop or slurred speech no drift in the upper extremities or the lower extremities when the granddaughter came to the ER she mentioned that she had a slurred speech and she was definitely more confused patient's medications included insulin in addition to see Rocco Hebert 100mg daily levothyroxine 100mcg daily rivaroxaban 15mg daily and sertraline 25mg daily, she has history of as mentioned above stroke in the past, hypertension, hypothyroidism, and type 2 diabetes mellitus she has undergone cataract extraction, and also low back surgeries she is a former smoker never alcohol intake or initial exam in the emergency room were grossly nonfocal vital signs were with blood pressure of 225/68 CBC was normal with hemoglobin 9.1 and routine labs were negative otherwise chest x-ray negative EKG without atrial fibrillation though it was in sinus rhythm with bradycardia admitted to the hospital with diagnosis of TIA initial CT scan of the head revealed areas of previous infarction without any acute intracranial abnormality or any bleed but MRI subsequent to admission documented old infarct involving the right temporal occipital region in the distribution of right posterior cerebral artery, old infarct in the right temporal lobe in the distribution of right middle cerebral artery scattered areas of nonspecific increased intensity in the cerebral white matter there is an old infarct in the naheed old infarct in the left temporal lobe and there was dilatation trigone of the right lateral ventricle [facility] Past Medical History Medical History (Updated 10/15/23 @ 22:37 by Aruna Moya PA-C) Cerebrovascular accident Chronic anticoagulation Hypertension Hypothyroidism Kidney stones Myocardial infarction Paroxysmal atrial fibrillation Type 2 diabetes mellitus Surgical History Surgical History (Updated 10/15/23 @ 22:35 by Aruna Moya PA-C) History of appendectomy History of back surgery History of bladder suspension procedure History of cataract surgery History of hysterectomy History of lithotripsy History of oophorectomy Family History Family History Mother Angina concurrent with and due to arteriosclerosis of coronary artery Heart disease CAD (coronary artery disease) Sibling Heart disease CAD (coronary artery disease) Social History Social History (Updated 10/15/23 @ 22:35 by Aruna Moya PA-C) Social History: Currently lives at home alone. Daughter and granddaughter come by the house often to help. Surrogate decision maker: Gail Haas, daughter. Code Status: Full Code Smoking packs per day: 0.5 Smoking cigarettes per day: 10.0 Years smoked: 15 Smoking pack-years: 7.50 Smoking status: Former smoker Tobacco type: cigarettes Alcohol intake: never
[2023-10-16 16:29] LABS: Glucose Point of Care 162 mg/dl (65-105)
--- NOTE | 2023-10-16 16:57 | PM.IMPN ---
Progress Note: A&P Assessment and Plan (1) Paroxysmal atrial fibrillation: Code(s): I48.0 - Paroxysmal atrial fibrillation Status: Acute (2) Chronic anticoagulation: Code(s): Z79.01 - long term care phlebotomist (current) use of anticoagulants Status: Acute (3) Decreased responsiveness: Code(s): R41.89 - Other symptoms and signs involving cognitive functions and awareness Status: Acute (4) Tachycardia: Code(s): R00.0 - Tachycardia, unspecified Status: Acute Plan pt symptoms have resolved. her episodes are characteristic of silent seizures. pending keppra level. consult neurology. it appears eeg was not done last admission, that would be prudent now, as well as medication mgmt. questionable affect via bradycardia (she described her episodes as her heart was slowing, and family described them as a blank stare), but I was able to retrieve the event monitor info from [facility] cardiology and she had been sustaining in the 40's without prolonged adverse events. in any event, she was tachycardic this AM and then when she was given her morning meds she responded almost too well, turning to sinus bradycardia. decrease metoprolol dose. if her tachybrady becomes difficult to manage a cardiology consult would be appropriate. full code. appreciate neurology recs cont johannato Subjective Date/time seen: 10/16/23 16:57 Interval history: naoe. the patient has been her usual self since admission, albeit she is anxious. Review of Systems Review of Systems: All systems reviewed & are unremarkable except as noted in HPI and below (subjective) Exam Const: General: comfortable and no acute distress Other: A&ox3 Eyes: Pupils: Equal, round and reactive pupils present Neck: Neck: supple Resp: Effort & Inspection: normal respiratory effort Auscultation: clear to auscultation bilaterally Cardio: Rate: regular rate Rhythm: regular rhythm GI: GI Palp: Yes Soft to palpation Extrem: General: no edema Objective Data Vital Signs Vital Signs: Vital Signs - 24 hr 10/15/23 17:11 10/15/23 17:32 10/15/23 17:55 Temperature 97.7 F Pulse Rate 63 Respiratory Rate 18 Blood Pressure 180/70 H Pulse Oximetry 100 Oxygen Delivery Room Air 10/15/23 20:16 10/15/23 20:00 10/15/23 20:00 Temperature 97.9 F Pulse Rate 55 L 55 L Respiratory Rate 16 Blood Pressure 167/47 H Pulse Oximetry 98 Oxygen Delivery Room Air 10/16/23 00:00 10/16/23 04:01 10/16/23 05:49 Temperature 97.6 F Pulse Rate 64 68 156 H Respiratory Rate 16 Blood Pressure 169/64 H Pulse Oximetry 100 Oxygen Delivery 10/16/23 04:00 10/16/23 06:40 10/16/23 06:32 Temperature Pulse Rate 68 148 H 152 H Respiratory Rate 18 Blood Pressure 150/78 H Pulse Oximetry 100 Oxygen Delivery 10/16/23 07:42 10/16/23 14:00 Temperature 96.7 F L Pulse Rate 155 H 75 Respiratory Rate 16 Blood Pressure 141/62 H Pulse Oximetry 100 Oxygen Delivery Intake/Output Intake/Output: Intake & Output 10/13/23 10/14/23 10/15/23 10/16/23 23:59 23:59 23:59 23:59 Intake Total 240 730 Balance 240 730 Meds/Results Medications: Active Medications Generic Name Dose Route Start Last Admin Trade Name Freq PRN Reason Stop Dose Admin Acetaminophen 650 mg 10/15/23 15:10 Acetaminophen 325 Mg Tablet PO Q4H PRN Mild Pain (1-3) or Fever Hydrocodone Bitart/Acetaminophen 1 tab 10/15/23 15:10 Hydrocodone/Acetaminophen (*Crx) 5-325 Mg Tablet PO Q4H PRN Pain Rated 4-6 Clopidogrel Bisulfate 75 mg 10/16/23 09:00 10/16/23 10:10 Clopidogrel Bisulfate 75 Mg Tablet PO 75 mg QAM TEO Administration Dextrose 12.5 gm 10/15/23 22:41 Dextrose 50% 25 Gm/50 Ml Syringe IV PUSH PRN PRN Hypoglycemia Protocol Diltiazem HCl 180 mg 10/16/23 09:00 10/16/23 07:42 Diltiazem Hcl Cd 180 Mg Cap.24hr PO 180 mg QAM TEO Administration Docu
[2023-10-16] MEDS: INSULIN GLARGINE (*BKC) 100 UNITS/ML 19 UNITS SUB-Q (17:47)
[2023-10-16 20:32] LABS: Glucose Point of Care 146 mg/dl (65-105)
[2023-10-17] VITALS (12 sets, daily range): BP systolic 130–155; BP diastolic 48–53; PULSE 38–142; RESP 14–20; TEMP 36.3–37.2; O2SAT 99–100
[2023-10-17] MEDS: LEVOTHYROXINE SODIUM 100 MCG TABLET PO (06:00)
[2023-10-17 07:09] LABS: Basophils Percent Auto 0.5 % (0.2-1.2); Eosinophils Absolute Auto 0.1 K/mm3 (0-0.3); Eosinophils Percent Auto 0.8 % (0-4.4); Hematocrit 34.1 % (37.0-47.0); Immature Granulocyte Absolute 0.02 K/mm3 (0.00-0.031); Immature Granulocyte Percent A 0.2 % (0-0.5); Lymphocytes Absolute Auto 1.51 K/mm3 (0.9-3.2); Mean Corpuscular HGB Conc 32.3 g/dl (32-36); Mean Corpuscular Hemoglobin 27.8 pg (26-34); Mean Corpuscular Volume 86.1 fl (80-100); Mean Platelet Volume 9.7 fl (7.4-10.4); Monocytes Absolute Auto 0.7 K/mm3 (0.1-0.6); Monocytes Percent Auto 8.2 % (2.6-8.5); Neutrophils Absolute Auto 6.5 K/mm3 (1.3-6.7); Neutrophils Percent Auto 73.3 % (45.5-73.1); Platelet Count Result 317 k/mm3 (150-375); Red Blood Count 3.96 M/mm3 (4.2-5.4); Red Cell Distribution Width 14.2 % (11.5-14.5); White Blood Count 8.9 K/mm3 (4.5-10.0)
[2023-10-17 07:18] LABS: Anion Gap 9 mmol/L (8-16); Blood Urea Nitrogen 21 mg/dL (7-17); Calcium 9.5 mg/dL (8.4-10.2); Carbon Dioxide 23 mmol/L (22-30); Chloride 97 mmol/L (98-107); Estimated CRCL calculation 47 ml/min; Estimated Glomerular Filt Rate > 60; Glucose 155 mg/dL (65-110); Potassium 3.8 mmol/L (3.4-5.0); Sodium 129 mmol/L (137-145)
[2023-10-17 07:51] LABS: Glucose Point of Care 164 mg/dl (65-105)
[2023-10-17] MEDS: SERTRALINE HCL 25 MG TABLET PO (08:54)
[2023-10-17] MEDS: METOPROLOL TARTRATE 25 MG TABLET PO (08:54)
[2023-10-17] MEDS: levETIRAcetam 250 MG TABLET PO ×2 (08:55→20:26)
[2023-10-17] MEDS: RIVAROXABAN 15 MG TABLET PO (08:55)
[2023-10-17] MEDS: CLOPIDOGREL BISULFATE 75 MG TABLET PO (08:55)
[2023-10-17] MEDS: PANTOPRAZOLE 40 MG TABLET PO (08:55)
[2023-10-17] MEDS: dilTIAZem HCL CD 180 MG CAP.24HR PO (08:55)
[2023-10-17] MEDS: MULTIVITAMINS /C LUTEIN (CENTRUM SILVER) TABLET *BKC 1 TAB PO (08:55)
[2023-10-17] MEDS: ROSUVASTATIN 10 MG TABLET 30 MG PO (08:55)
--- NOTE | 2023-10-17 10:22 | ECG_ITS ---
Measurements Intervals [place] Rate: 63 P: 61 [place]: 246 QRS: -1 QRSD: 112 T: -22 QT: 425 QTc: 436 Interpretive Statements SINUS RHYTHM WITH FIRST DEGREE AV BLOCK LEFT VENTRICULAR HYPERTROPHY AND ST-T CHANGE [VOLTAGE CRITERIA PLUS ST/T ABNORMALITY] INFERIOR MYOCARDIAL INFARCTION , OF INDETERMINATE AGE [40+ ms Q WAVE AND/OR ST/T ABNORMALITY IN II/aVF] ABNORMAL ECG COMPARED TO ECG 10/16/2023 09:00:14 SINUS RHYTHM NOW PRESENT FIRST DEGREE AV BLOCK NOW PRESENT MYOCARDIAL INFARCT FINDING NOW PRESENT Electronically Signed On 10-17-2023 10:43:07 INHALATION THERAPY AIDES TEACHER by Ba Decker M.D.
[2023-10-17] MEDS: METOPROLOL TARTRATE INJ 5 MG/5 ML VIAL IV PUSH (10:28)
[2023-10-17 11:17] LABS: Glucose Point of Care 255 mg/dl (65-105)
[2023-10-17 11:26] LABS: Troponin I 0.021 ng/mL (0.000-0.034)
[2023-10-17] MEDS: INSULIN ASPART (*BKC) 100 UNITS/ML SUB-Q (11:32)
--- NOTE | 2023-10-17 12:51 | WPDNEUROPN ---
Subjective Date/time seen: 10/17/23 12:51 Interval history: status post multiple stroke in addition to the history of paroxysmal atrial fibrillation, hypothyroidism, remains on the same medication and neurological examination is essentially unchanged MRI of the brain has documented old infarcts likely candidate to have the seizure also because of multiple strokes EEG can be obtained. Objective Data Vital Signs Vital Signs: Vital Signs - 24 hr 10/16/23 14:00 10/16/23 16:00 10/16/23 21:41 Temperature 35.9 C L Pulse Rate 75 45 L 42 L Respiratory Rate 16 Blood Pressure 141/62 H Pulse Oximetry 100 Oxygen Delivery 10/16/23 20:38 10/16/23 22:00 10/17/23 00:00 Temperature 36.6 C Pulse Rate 46 L 41 L 38 L Respiratory Rate 14 Blood Pressure 141/49 H Pulse Oximetry 100 Oxygen Delivery 10/17/23 04:00 10/17/23 06:00 10/17/23 08:54 Temperature 36.3 C L Pulse Rate 51 L 53 L 64 Respiratory Rate 14 Blood Pressure 143/49 H Pulse Oximetry 100 Oxygen Delivery 10/17/23 09:00 10/17/23 10:28 10/17/23 08:00 Temperature Pulse Rate 142 H 58 L Respiratory Rate Blood Pressure Pulse Oximetry Oxygen Delivery Room Air 10/17/23 12:00 Temperature Pulse Rate 60 Respiratory Rate Blood Pressure Pulse Oximetry Oxygen Delivery Intake/Output Intake/Output: Intake & Output 10/14/23 10/15/23 10/16/23 10/17/23 23:59 23:59 23:59 23:59 Intake Total 240 2090 240 Output Total 1 Balance 240 2089 240 Meds/Results Medications: Active Medications Generic Name Dose Route Start Last Admin Trade Name Freq PRN Reason Stop Dose Admin Acetaminophen 650 mg 10/15/23 15:10 Acetaminophen 325 Mg Tablet PO Q4H PRN Mild Pain (1-3) or Fever Hydrocodone Bitart/Acetaminophen 1 tab 10/15/23 15:10 Hydrocodone/Acetaminophen (*Crx) 5-325 Mg Tablet PO Q4H PRN Pain Rated 4-6 Clopidogrel Bisulfate 75 mg 10/16/23 09:00 10/17/23 08:55 Clopidogrel Bisulfate 75 Mg Tablet PO 75 mg QAM ETO Administration Dextrose 12.5 gm 10/15/23 22:41 Dextrose 50% 25 Gm/50 Ml Syringe IV PUSH PRN PRN Hypoglycemia Protocol Diltiazem HCl 180 mg 10/16/23 09:00 10/17/23 08:55 Diltiazem Hcl Cd 180 Mg Cap.24hr PO 180 mg QAM TEO Administration Docusate Sodium 100 mg 10/15/23 22:43 Docusate Sodium 100 Mg Capsule PO DAILY PRN Constipation Glucagon 1 mg 10/15/23 22:41 Glucagon For Inj 1 Mg Vial IM PRN PRN Hypoglycemia Protocol Glucose 15 gm 10/15/23 22:41 Glucose Oral Gel 15 Gm Of Glucse In 37.5 Gm Tube PO PRN PRN Hypoglycemia Protocol Hydralazine HCl 10 mg 10/15/23 19:28 Hydralazine Hcl 20 Mg/Ml Vial IV PUSH Q6H PRN SBP > 165 or DBP > 105 Dextrose 1,000 mls @ 100 mls/hr 10/15/23 22:41 Dextrose 5% 1,000 Ml IVPB PRN PRN Hypoglycemia Protocol Insulin Aspart 2 - 5 units 10/16/23 08:00 10/17/23 11:32 Insulin Aspart (*Bkc) 100 Units/Ml SUB-Q 3 units TIDWM TEO Administration Protocol Insulin Aspart 1 - 2 units 10/16/23 21:00 10/16/23 20:42 Insulin Aspart (*Bkc) 100 Units/Ml SUB-Q Not Given HS TEO Protocol Insulin Glargine 19 units 10/16/23 18:00 10/16/23 17:47 Insulin Glargine (*Bkc) 100 Units/Ml SUB-Q 19 units QPM TEO Administration Levetiracetam 250 mg 10/16/23 09:00 10/17/23 08:55 Levetiracetam 250 Mg Tablet PO 250 mg Q12HR TEO Administration Levothyroxine Sodium 100 mcg 10/16/23 06:30 10/17/23 06:00 Levothyroxine Sodium 100 Mcg Tablet PO 100 mcg DAILY@0630 TEO Administration Metoprolol Tartrate 25 mg 10/16/23 21:00 10/17/23 08:54 Metoprolol Tartrate 25 Mg Tablet PO 25 mg Q12HR TEO Administration Multivitamins/Minerals 1 tab 10/16/23 09:00 10/17/23 08:55 Multivitamins /C Lutein (Centrum Silver) Tablet *Bkc PO 1 tab DAILY TEO Administration Ond
[2023-10-17 14:12] LABS: Troponin I 0.026 ng/mL (0.000-0.034)
--- NOTE | 2023-10-17 15:32 | PM.CNCAR ---
Assessment and Plan Assessment and plan (1) Paroxysmal atrial fibrillation: Code(s): I48.0 - Paroxysmal atrial fibrillation Status: Acute Assessment and Plan: EKG and tele appear to be SVT, cannot rule out underlying atrial flutter. Has known paroxysmal atrial fibrillation. Already wearing an event monitor from last hospitalization -- no urgent findings/reports were sent to us thus far. Recommend to continue Diltiazem 180mg. Metoprolol has been decreased to 25mg BID due to concern for baseline sinus bradycardia. Continue with current dose. Continue tele monitoring. If she has more episodes of SVT, may need to increase dose of Metoprolol if tolerated. Continue Xarelto for anticoagulation. Will arrange for outpatient electrophysiology evaluation. (2) Coronary artery disease: Code(s): I25.10 - Atherosclerotic heart disease of [place] coronary artery without angina pectoris Status: Acute Assessment and Plan: Stable. Continue Plavix, statin, beta romeo. History of Present Illness History of Present Illness Consult date/time: 10/17/23 15:32 Requesting physician: Pily Simmons MD Consult reason: Other (Tachycardia ) Reason For Visit: TIA/ Uncontrolled HTN Narrative: We are consulted for tachycardia. This is a 77 year old female who follows with me in clinic. She has coronary artery disease with STEMI in May 2023 s/p PCI to the LAD, paroxysmal atrial fibrillation, CVA, diabetes. She was recently admitted here for altered mental status, weakness, confusion. Had episodes of SVT for which we were consulted for. She was discharged home with an event monitor, which she is currently wearing. Patient admitted on 10/15 for altered mental status. She was found by her granddaughter to be laying in bed, not making any sense, speech was slurred, she was confused. In the ER, she was alert and oriented x 3 and her speech slurring had resolved. She was noted to be hypertensive with BP of 225/68. Brain CT and brain MRI are negative. Concern for seizure activity, for which Neurology is consulted. She had tachycardia this morning for which we are consulted. Patient currently in normal sinus rhythm. Sleeping comfortably. Alert and oriented x3. Review of Systems Review of Systems: All systems reviewed & are unremarkable except as noted in HPI and below (HPI) [facility] Past Medical History Medical History Cerebrovascular accident Chronic anticoagulation Hypertension Hypothyroidism Kidney stones Myocardial infarction Paroxysmal atrial fibrillation Type 2 diabetes mellitus Surgical History Surgical History History of appendectomy History of back surgery History of bladder suspension procedure History of cataract surgery History of hysterectomy History of lithotripsy History of oophorectomy Family History Family History Mother Angina concurrent with and due to arteriosclerosis of coronary artery Heart disease CAD (coronary artery disease) Sibling Heart disease CAD (coronary artery disease) Social History Social History Social History: Currently lives at home alone. Daughter and granddaughter come by the house often to help. Surrogate decision maker: Gail Haas, daughter. Code Status: Full Code Smoking packs per day: 0.5 Smoking cigarettes per day: 10.0 Years smoked: 15 Smoking pack-years: 7.50 Smoking status: Former smoker Tobacco type: cigarettes Alcohol intake: never Substance use: never Substance use type: does not use Lack of Transportation: No Lack of Food: Never True Current Housing: I Have Housing Concerned About Future Housing: No Difficulty Paying Gas/Electric Bills: No Difficulty Paying for Meds: No Currently Unemployed: No Education: High
--- NOTE | 2023-10-17 15:41 | PM.IMPN ---
Progress Note: A&P Assessment and Plan (1) Decreased responsiveness: Code(s): R41.89 - Other symptoms and signs involving cognitive functions and awareness Status: Acute Plan the patient is back to her baseline. an EEG and adjustment of her antiepileptics would be prudent. appreciate neurology recs. pending keppra level as well. cont diltiazem . metoprolol decreased. cardiology consulted, to have outpatient EP eval. Subjective Date/time seen: 10/17/23 15:41 Interval history: naoe. the patient is not as anxious this am. she reports no symptoms. Review of Systems Review of Systems: All systems reviewed & are unremarkable except as noted in HPI and below (subjective) Exam Const: General: comfortable and no acute distress Eyes: Pupils: Equal, round and reactive pupils present Resp: Effort & Inspection: normal respiratory effort Cardio: Rate: regular rate Rhythm: regular rhythm GI: GI Palp: Yes Soft to palpation and No Tenderness to palpation present (GI) Extrem: General: no edema Objective Data Vital Signs Vital Signs: Vital Signs - 24 hr 10/16/23 16:00 10/16/23 21:41 10/16/23 20:38 Temperature Pulse Rate 45 L 42 L 46 L Respiratory Rate Blood Pressure Pulse Oximetry Oxygen Delivery 10/16/23 22:00 10/17/23 00:00 10/17/23 04:00 Temperature 97.9 F Pulse Rate 41 L 38 L 51 L Respiratory Rate 14 Blood Pressure 141/49 H Pulse Oximetry 100 Oxygen Delivery 10/17/23 06:00 10/17/23 08:54 10/17/23 09:00 Temperature 97.4 F L Pulse Rate 53 L 64 Respiratory Rate 14 Blood Pressure 143/49 H Pulse Oximetry 100 Oxygen Delivery Room Air 10/17/23 10:28 10/17/23 08:00 10/17/23 12:00 Temperature Pulse Rate 142 H 58 L 60 Respiratory Rate Blood Pressure Pulse Oximetry Oxygen Delivery 10/17/23 14:00 Temperature 99.0 F Pulse Rate 57 L Respiratory Rate 20 Blood Pressure 130/48 L Pulse Oximetry 100 Oxygen Delivery Intake/Output Intake/Output: Intake & Output 10/14/23 10/15/23 10/16/23 10/17/23 23:59 23:59 23:59 23:59 Intake Total 240 0 462 Output Total 1 Balance 240 2089 462 Meds/Results Medications: Active Medications Generic Name Dose Route Start Last Admin Trade Name Freq PRN Reason Stop Dose Admin Acetaminophen 650 mg 10/15/23 15:10 Acetaminophen 325 Mg Tablet PO Q4H PRN Mild Pain (1-3) or Fever Hydrocodone Bitart/Acetaminophen 1 tab 10/15/23 15:10 Hydrocodone/Acetaminophen (*Crx) 5-325 Mg Tablet PO Q4H PRN Pain Rated 4-6 Clopidogrel Bisulfate 75 mg 10/16/23 09:00 10/17/23 08:55 Clopidogrel Bisulfate 75 Mg Tablet PO 75 mg QAM TEO Administration Dextrose 12.5 gm 10/15/23 22:41 Dextrose 50% 25 Gm/50 Ml Syringe IV PUSH PRN PRN Hypoglycemia Protocol Diltiazem HCl 180 mg 10/16/23 09:00 10/17/23 08:55 Diltiazem Hcl Cd 180 Mg Cap.24hr PO 180 mg QAM TEO Administration Docusate Sodium 100 mg 10/15/23 22:43 Docusate Sodium 100 Mg Capsule PO DAILY PRN Constipation Glucagon 1 mg 10/15/23 22:41 Glucagon For Inj 1 Mg Vial IM PRN PRN Hypoglycemia Protocol Glucose 15 gm 10/15/23 22:41 Glucose Oral Gel 15 Gm Of Glucse In 37.5 Gm Tube PO PRN PRN Hypoglycemia Protocol Hydralazine HCl 10 mg 10/15/23 19:28 Hydralazine Hcl 20 Mg/Ml Vial IV PUSH Q6H PRN SBP > 165 or DBP > 105 Dextrose 1,000 mls @ 100 mls/hr 10/15/23 22:41 Dextrose 5% 1,000 Ml IVPB PRN PRN Hypoglycemia Protocol Insulin Aspart 2 - 5 units 10/16/23 08:00 10/17/23 11:32 Insulin Aspart (*Bkc) 100 Units/Ml SUB-Q 3 units TIDWM TEO Administration Protocol Insulin Aspart 1 - 2 units 10/16/23 21:00 10/16/23 20:42 Insulin Aspart (*Bkc) 100 Units/Ml SUB-Q Not Given HS TEO Protocol Insulin Glargine 19 units 10/16/23 18:00 10/16/23 17:47 Insulin G
[2023-10-17 16:28] LABS: Glucose Point of Care 141 mg/dl (65-105)
[2023-10-17] MEDS: INSULIN GLARGINE (*BKC) 100 UNITS/ML 19 UNITS SUB-Q (18:44)
[2023-10-17 21:19] LABS: Glucose Point of Care 189 mg/dl (65-105)
[2023-10-18] VITALS: PULSE 48
[2023-10-18 04:00] VITALS: PULSE 68
[2023-10-18] MEDS: DOCUSATE SODIUM 100 MG CAPSULE PO (04:39)
[2023-10-18 05:19] VITALS: BP 150/59; PULSE 51; RESP 16; TEMP 36.4; O2SAT 99
[2023-10-18] MEDS: LEVOTHYROXINE SODIUM 100 MCG TABLET PO (06:45)
[2023-10-18 07:12] LABS: Anion Gap 9 mmol/L (8-16); Blood Urea Nitrogen 18 mg/dL (7-17); Calcium 9.3 mg/dL (8.4-10.2); Carbon Dioxide 25 mmol/L (22-30); Chloride 96 mmol/L (98-107); Estimated CRCL calculation 42 ml/min; Estimated Glomerular Filt Rate 60; Glucose 165 mg/dL (65-110); Potassium 3.9 mmol/L (3.4-5.0); Sodium 130 mmol/L (137-145)
[2023-10-18 07:48] LABS: Hematocrit 32.8 % (37.0-47.0); Hemoglobin 10.7 g/dL (12.0-15.0); Mean Corpuscular HGB Conc 32.6 g/dl (32-36); Mean Corpuscular Hemoglobin 28.1 pg (26-34); Mean Corpuscular Volume 86.1 fl (80-100); Mean Platelet Volume 9.7 fl (7.4-10.4); Platelet Count Result 319 k/mm3 (150-375); Red Blood Count 3.81 M/mm3 (4.2-5.4); Red Cell Distribution Width 13.9 % (11.5-14.5); White Blood Count 7.6 K/mm3 (4.5-10.0)
[2023-10-18 07:58] LABS: Glucose Point of Care 153 mg/dl (65-105)
[2023-10-18 08:00] VITALS: PULSE 60
[2023-10-18 08:33] VITALS: PULSE 60
[2023-10-18] MEDS: ROSUVASTATIN 10 MG TABLET 30 MG PO (08:33)
[2023-10-18] MEDS: dilTIAZem HCL CD 180 MG CAP.24HR PO (08:33)
[2023-10-18] MEDS: METOPROLOL TARTRATE 25 MG TABLET PO (08:33)
[2023-10-18] MEDS: RIVAROXABAN 15 MG TABLET PO (08:33)
[2023-10-18] MEDS: PANTOPRAZOLE 40 MG TABLET PO (08:34)
[2023-10-18] MEDS: SERTRALINE HCL 25 MG TABLET PO (08:34)
[2023-10-18] MEDS: MULTIVITAMINS /C LUTEIN (CENTRUM SILVER) TABLET *BKC 1 TAB PO (08:34)
[2023-10-18] MEDS: CLOPIDOGREL BISULFATE 75 MG TABLET PO (08:34)
[2023-10-18] MEDS: levETIRAcetam 250 MG TABLET PO (08:34)
[2023-10-18 11:54] LABS: Glucose Point of Care 290 mg/dl (65-105)
--- NOTE | 2023-10-18 12:03 | P.NEURO_ITS ---
Neurology EEG Report General Information Date of Study: 10/18/23 TEST Routine EEG DIAGNOSIS Rule out seizures CONDITION OF RECORDING Awake, drowsy EEG NUMBER [id number] CLINICAL HISTORY Patient reports history of several strokes and a [place] in the last several months. Patient was found confused and disoriented a couple of days ago but is back to baseline today. EEG DESCRIPTION During the awake state with eyes closed the background consists of 8 Hz posterior dominant rhythm which attenuates appropriately with eye opening. The recording is continuous. There is a well developed anterior-posterior gradient. No significant asymmetries of background activities are noted. With drowsiness there is waxing and waning of the dominant rhythm with eventual replacement by a mixture of beta, alpha, and theta activity. Patient did not enter stage II sle ep. There are no epileptiform discharges or seizures during this recording. Hyperventilation and photic stimulation were not performed. IMPRESSION This is a normal routine EEG recorded in awake and drowsy states. There are no electrographic seizures identified, nor are there any epileptiform discharges. Please note that a normal EEG cannot exclude a seizure disorder. Clinical correlation is recommended.
[2023-10-18] MEDS: INSULIN ASPART (*BKC) 100 UNITS/ML SUB-Q (12:08)
--- NOTE | 2023-10-18 13:38 | PM.DS ---
DS: Admitting Diagnosis Discharge Date 10/18/23 Admitting Diagnosis altered mental status DS: Discharge Diagnosis Discharge Diagnosis (1) Paroxysmal atrial fibrillation: Code(s): I48.0 - Paroxysmal atrial fibrillation Status: Acute (2) Chronic anticoagulation: Code(s): Z79.01 - senior care (current) use of anticoagulants Status: Acute (3) Decreased responsiveness: Code(s): R41.89 - Other symptoms and signs involving cognitive functions and awareness Status: Acute (4) Tachycardia: Code(s): R00.0 - Tachycardia, unspecified Status: Acute (5) Seizure-like activity: Code(s): R56.9 - Unspecified convulsions Status: Acute DS: Summary Hospital Course Hospital Course: Please see detailed H&P by Aruna Moya on 10/15/23. Ms Porter is a 77F w/ history of stroke and possible seizures, a fib on chronic xarelto. She was at home, her usual self when she told the granddaughter by phone she felt of and her heart was slow. The granddaughter checked on her and found her confused, with slurred speech and staring. MRI on 10/16/23 demonstrated old infarcts. The pt underwent EEG and Dr. Delgado of neurology verbalized this it was normal. Official read to follow. The patient was otherwise at her baseline since being admitted. She felt well enough to go home as did the daughter. She is dc'ed to home in stable condition and per neurology recs will increase keppra to 500mg po for seizure prevention. Otherwise, the patient's metoprolol was decreased from 75mg po bid to 25mg po bid as her heart rate was in 40's. Her HR did improve. She has a fib w/ intermittent episodes of sinus tachy and bradycardia. She continues to wear her [employer] monitor and no other changes per cardiology consult. She is being set up with EP by cardiology. More than 30 minutes spent on discharge planning and documentation. Time Spent with Patient Time attestation: Total time spent providing and/or coordinating discharge services: Exam Const: General: cooperative and no acute distress Resp: Effort & Inspection: normal respiratory effort Auscultation: clear to auscultation bilaterally Cardio: Rate: regular rate Rhythm: regular rhythm Heart sounds: S1 normal heart sound present and S2 normal heart sound present GI: GI Palp: No abdominal tenderness Auscultation: normal bowel sounds DS: Data Data Completed and Pending Labs on day of discharge: Labs from last 24 hours 10/18/23 10/18/23 10/18/23 11:35 07:32 06:57 WBC 7.6 RBC 3.81 L Hgb 10.7 L Hct 32.8 L MCV 86.1 MCH 28.1 MCHC 32.6 RDW 13.9 Plt Count 319 MPV 9.7 Sodium 130 L Potassium 3.9 Chloride 96 L Carbon Dioxide 25 Anion Gap 9 BUN 18 H Creatinine 0.90 Estim Creat Clear Calc 42 Estimated GFR 60 Glucose 165 H POC Capillary Glucose 290 H 153 H Calcium 9.3 Troponin I 10/17/23 10/17/23 10/17/23 20:30 16:19 13:43 WBC RBC Hgb Hct MCV MCH MCHC RDW Plt Count MPV Sodium Potassium Chloride Carbon Dioxide Anion Gap BUN Creatinine Estim Creat Clear Calc Estimated GFR Glucose POC Capillary Glucose 189 H 141 H Calcium Troponin I 0.026 D Discharge Plan Discharge Attending physician on discharge: Pily Simmons Consulting providers: Ahmet Scott; Dk Nam Discharging Clinician: Pily Simmons Patient Disposition: Home, Self-Care Activity: may shower Diet: heart healthy Discharge Instructions: Per Care Coordination. Pt will [facility] with [facility]) for PT/OT at time of discharge. [facility] will call and set up first appointment. If there are any questions please call [phone] Patient Instructions: Antibiotic Form, How to Stop Smoking (DC) Stand Alone Forms: General Discharge Information Follow-up/Referrals: Adriano,SHANITA James [Prim
[2023-10-18 14:00] VITALS: BP 157/48; PULSE 50; RESP 18; TEMP 35.9; O2SAT 100
--- NOTE | 2023-10-18 16:08 | PC.NURSE ---
iv out, dc papers signed and gone over. denies any questions. patient has all heart monitor equipment with her in her bag for home. granddaughter taking home by private car. DISK OPERATOR taking down in wheelchair.
== END 2023-10-18 16:05 | disposition home health service (06) | DRG 309 ==
LOC: ANHED 10:51 → ANH3MEDSUR 16:03
PROVIDERS: Physician Assistant; Admitting Provider Family Medicine; Emergency Provider Emergency Medicine; PCP Physician Assistant; Visit Provider General Practice
DX: I48.0 Paroxysmal atrial fibrillation (principal); E87.1 Hypo-osmolality and hyponatremia; E11.9 Type 2 diabetes mellitus without complications; E03.9 Hypothyroidism, unspecified; I25.10 Atherosclerotic heart disease of native coronary artery without angina pectoris; I25.2 Old myocardial infarction; I10 Essential (primary) hypertension; Z79.4 Long term (current) use of insulin; Z79.01 Long term (current) use of anticoagulants; Z79.02 Long term (current) use of antithrombotics/antiplatelets; Z79.84 Long term (current) use of oral hypoglycemic drugs; Z86.73 Personal history of transient ischemic attack (TIA), and cerebral infarction without residual deficits; Z90.710 Acquired absence of both cervix and uterus; Z90.49 Acquired absence of other specified parts of digestive tract; Z87.891 Personal history of nicotine dependence; Z95.5 Presence of coronary angioplasty implant and graft
CPT/HCPCS: 36415; 70450; 70553; 71046; 80048; 80053; 80177; 81001; 82948; 83735; 84145; 84484; 85025; 85027; 85610; 85730; 93005; 95816; 96374; 96375; 96376; 99285; A9270; A9577; G0378; J0360; J1815

== ENCOUNTER 2023-11-06 11:49 | Emergency (ER) | payer MEDICARE, OTHER, SELFPAY ==
[2023-11-06] VITALS (7 sets, daily range): BP systolic 110–140; BP diastolic 65–91; PULSE 18–70; RESP 16–20; TEMP 36.2; O2SAT 100
--- NOTE | ~2023-11-06 | CT_ITS ---
EXAMINATION: CT brain wo con DATE: 11/06/2023 13:38 INDICATION: Headache TECHNIQUE: Computed tomography (CT) of the head was performed without intravenous contrast. The mA wa s adjusted according to patient size. Iterative reconstruction technique was employed. Exam dose: 60 5.33 mGy-cm total exam DLP. COMPARISON: 10/16/2023 MRI brain/brainstem 10/15/2023 CT brain FINDINGS: There is prominent bilateral vertebral artery calcification as well as some basilar artery calcification. There are prominent bilateral carotid siphon internal carotid artery calcifications. Again noted are old right occipital and right temporal infarcts, present on 10/15/2023. No intracranial mass lesion or hemorrhage, midline shift or mass effect, subdural or epidural hematom a is detected. Again noted are old left zygomaticomaxillary complex fracture deformities. No skull fracture or bone destruction is detected. The mastoid air cells and included paranasal sinuses are normally developed and aerated with exceptio n of mild patchy soft tissue thickening the ethmoid air cells. IMPRESSION: Old right posterior parietal and temporal infarcts Cerebral atherosclerosis and chronic small vessel ischemic changes of the cerebral white matter No acute intracranial finding Reviewed, dictated and finalized at [facility]. Reviewed, dictated and finalized at location [facility]. 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
--- NOTE | ~2023-11-06 | XR_ITS ---
Clinical Indication: Chest pain PA and lateral views of the chest: Comparison: 10/15/2023 Findings: The lungs are clear, without evidence of focal consolidation or pleural effusion. Cardiome diastinal silhouette is within normal limits. Bones and soft tissues are unremarkable. Impression: Normal chest. Reviewed, dictated and finalized at location . [place] LAYER Impression: Normal chest.
--- NOTE | 2023-11-06 12:06 | ECG_ITS ---
Measurements Intervals [place] Rate: 142 P: SD: 0 QRS: 15 QRSD: 113 T: -43 QT: 309 QTc: 476 Interpretive Statements SUPRAVENTRICULAR TACHYCARDIA INCOMPLETE LEFT BUNDLE BRANCH BLOCK CONSIDER INFERIOR INFARCT, AGE INDETERMINATE BORDERLINE ST-T WAVE ABNORMALITY- LATERAL LEADS BASELINE ARTIFACT- I, II, II, AVR, AVL, AVF ABNORMAL ECG COMPARED TO ECG 10/17/2023 10:42:00 SUPRAVENTRICULAR TACHYCARDIA NOW PRESENT ST-T WAVE ABNORMALITY NOW PRESENT Electronically Signed On 11-07-2023 9:40:11 IUSS ACOUSTIC ANALYST by Nicola Nur D.O.
--- NOTE | 2023-11-06 12:20 | ED.WEAKNESS ---
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 CAME TO THE EMERGENCY ROOM BY PRIVATE CAR WITH HER DAUGHTER WAS TELLING ME THAT SHE HAS BEEN FEELING WEAK FOR ALMOST 7 DAYS, INTERMITTENT SHAKING, SOMETIME INABILITY TO GET OUT OF CHAIR OR BED WITHOUT USER INTERFACE ENGINEER. DENIES ANY FEVER, CHILLS, NAUSEA, VOMITING, DIARRHEA. COMPLAINING OF BODY ACHES. Related Data Home Medications Medication Instructions Recorded Confirmed docusate sodium 100 mg capsule 100 mg PO DAILY PRN Constipation 05/13/23 10/15/23 insulin glargine 100 unit/mL (3 19 unit subcut QPM 05/13/23 10/15/23 mL) subcutaneous pen (Lantus Solostar U-100 Insulin) multivitamin-ferrous 1 tablet PO DAILY 05/13/23 10/15/23 fumarate-folic acid 18 mg-400 mcg tablet (Centrum Women) sitagliptin phosphate 100 mg 100 mg PO DAILY 05/13/23 10/15/23 tablet (Januvia) levothyroxine 100 mcg tablet 100 mcg PO DAILY 05/22/23 10/15/23 (Synthroid) pantoprazole 40 mg tablet,delayed 40 mg PO DAILY 05/22/23 10/15/23 release rivaroxaban 15 mg tablet (Xarelto) 15 mg PO DAILY 05/22/23 10/15/23 polyethylene glycol 3350 17 gram 17 g PO QAM PRN Constipation 08/16/23 10/15/23 oral powder packet (Miralax) sertraline 25 mg tablet 25 mg PO DAILY 10/15/23 10/15/23 Allergies Allergy/AdvReac Type Severity Reaction Status Date / Time atorvastatin [From Lipitor] Allergy Hives Verified 10/01/23 12:36 propoxyphene [From Darvon] Allergy Unknown Verified 10/01/23 12:36 glipizide AdvReac Dizziness Verified 10/01/23 12:36 metformin AdvReac Other Verified 10/01/23 12:36 Streptomyces Albus Allergy Hives Uncoded 10/01/23 12:36 Review of Systems Review of Systems: All systems reviewed & are unremarkable except as noted in HPI and below PMFSH Past Medical History Medical History Cerebrovascular accident Chronic anticoagulation Hypertension Hypothyroidism Kidney stones Myocardial infarction Paroxysmal atrial fibrillation Type 2 diabetes mellitus Surgical History Surgical History History of appendectomy History of back surgery History of bladder suspension procedure History of cataract surgery History of hysterectomy History of lithotripsy History of oophorectomy Family History Family History Mother Angina concurrent with and due to arteriosclerosis of coronary artery Heart disease CAD (coronary artery disease) Sibling Heart disease CAD (coronary artery disease) Social History Social History Social History: Currently lives at home alone. Daughter and granddaughter come by the house often to help. Surrogate decision maker: Gail Haas, daughter. Code Status: Full Code Smoking packs per day: 0.5 Smoking cigarettes per day: 10.0 Years smoked: 15 Smoking pack-years: 7.50 Smoking status: Former smoker Tobacco type: cigarettes Alcohol intake: never Substance use: never Substance use type: does not use Do You Feel Safe in your Home?: Yes Lack of Transportation: No Lack of Food: Never True Current Housing: I Have Housing Concerned About Future Housing: No Difficulty Paying Gas/Electric Bills: No Difficulty Paying for Meds: No Currently Unemployed: No Education: High School Diploma/GED Difficulty w/ Childcare or Family Care: No Living arrangements: alone Occupation/Education: retired Spiritual care concerns: No Exam Narrative: GENERAL APPEARANCE: WELL-DEVELOPED, WELL-NOURISHED SKIN: NORMAL COLOR HEAD: NORMOCEPHAL
[2023-11-06 12:46] LABS: Basophils Percent Auto 0.3 % (0.2-1.2); Eosinophils Percent Auto 0.1 % (0-4.4); Hematocrit 36.3 % (37.0-47.0); Hemoglobin 12.1 g/dL (12.0-15.0); Immature Granulocyte Absolute 0.05 K/mm3 (0.00-0.031); Immature Granulocyte Percent A 0.7 % (0-0.5); Lymphocytes Absolute Auto 1.43 K/mm3 (0.9-3.2); Lymphocytes Percent Auto 18.7 % (18.3-44.2); Mean Corpuscular HGB Conc 33.3 g/dl (32-36); Mean Corpuscular Hemoglobin 28.4 pg (26-34); Mean Corpuscular Volume 85.2 fl (80-100); Mean Platelet Volume 9.8 fl (7.4-10.4); Monocytes Absolute Auto 0.8 K/mm3 (0.1-0.6); Monocytes Percent Auto 9.9 % (2.6-8.5); Neutrophils Absolute Auto 5.4 K/mm3 (1.3-6.7); Neutrophils Percent Auto 70.3 % (45.5-73.1); Platelet Count Result 282 k/mm3 (150-375); Red Blood Count 4.26 M/mm3 (4.2-5.4); Red Cell Distribution Width 13.8 % (11.5-14.5); White Blood Count 7.6 K/mm3 (4.5-10.0)
[2023-11-06 12:57] LABS: Albumin Level 4.4 g/dL (3.5-5.1); Alkaline Phosphatase 66 U/L (38-126); Anion Gap 18 mmol/L (8-16); Aspartate Amino Transferase 39 U/L (14-36); Bilirubin,Total 0.6 mg/dL (0.2-1.3); Blood Urea Nitrogen 16 mg/dL (7-17); Calcium 9.3 mg/dL (8.4-10.2); Carbon Dioxide 19 mmol/L (22-30); Chloride 94 mmol/L (98-107); Estimated CRCL calculation 41 ml/min; Estimated Glomerular Filt Rate > 60; Glucose 214 mg/dL (65-110); Potassium 3.2 mmol/L (3.4-5.0); Sodium 131 mmol/L (137-145)
[2023-11-06 13:04] LABS: Alanine Aminotransferase 34 U/L (6-35)
[2023-11-06 13:51] LABS: Influenza A QL RT-PCR Negative (Negative); Influenza B QL RT-PCR Negative (Negative); RSV RNA, RT-PCR Negative (Negative); SARS-CoV-2 RNA PCR Positive (Negative)
[2023-11-06 14:04] LABS: Appearance Urine Clear (Clear); Bacteria Urine None Seen /hpf; Bilirubin Urine Negative (Negative); Blood Urine 1+ (Negative); Color Urine Yellow (Yellow); Glucose Urine UA Trace mg/dL (Negative); Ketones Urine Trace mg/dL (Negative); Leukocyte Esterase Ur Negative LEU/UL (Negative); Nitrate Urine Negative (Negative); Non Pathogenic Casts 0-2; Protein Urine 1+ mg/dL (Negative); Specific Grav Ur 1.016 (1.001-1.035); Squamous Epithelial Cell Urine None seen /hpf (Few); WBC Urine 0-5 /hpf
[2023-11-06 14:18] LABS: Add Urine Microscopic? YES
[2023-11-06] MEDS: POTASSIUM CHLORIDE 20 MEQ ER TABLET 40 MEQ PO (14:50)
== END 2023-11-06 15:07 | disposition home or self-care (01) ==
PROVIDERS: Emergency Provider Emergency Medicine; PCP Physician Assistant
DX: U07.1 COVID-19 (principal); R53.1 Weakness; E87.6 Hypokalemia; I10 Essential (primary) hypertension; E03.9 Hypothyroidism, unspecified; I48.0 Paroxysmal atrial fibrillation; E11.9 Type 2 diabetes mellitus without complications; I25.2 Old myocardial infarction; Z86.73 Personal history of transient ischemic attack (TIA), and cerebral infarction without residual deficits; Z87.891 Personal history of nicotine dependence
CPT/HCPCS: 36415; 70450; 71046; 80053; 81001; 85025; 87637; 93005; 99284; A9270

== ENCOUNTER 2024-05-14 08:43 | Outpatient (CLI) | payer MEDICARE, OTHER, SELFPAY | END 2024-05-14 08:44 | disposition home or self-care (01) | LOC: ANHAUDASC 08:45 | PROVIDERS: PCP Physician Assistant; Visit Provider Otolaryngology | DX: H90.3 Sensorineural hearing loss, bilateral (principal) | CPT/HCPCS: 92557; 92567 ==

== ENCOUNTER 2024-07-03 13:00 | Outpatient (RCR) | payer MEDICARE, OTHER, SELFPAY | END 2024-09-01 23:59 | disposition home or self-care (01) | LOC: ANHAUDASC 13:00 | PROVIDERS: PCP Physician Assistant; Visit Provider Otolaryngology | DX: Z46.1 Encounter for fitting and adjustment of hearing aid (principal) | CPT/HCPCS: 99199; V5160; V5260 ==